=== PATIENT | female | born 1940 | race Caucasian/White ===

== ENCOUNTER 2019-07-17 14:36 | Inpatient (IN) | payer MEDICARE ==
[~2019-07-17] VITALS: Ht 162.6 cm; Wt 92.1 kg
[~2019-07-17 14:36] MED LIST: BENA40TA59 PO; CEPH-507 PO; ONDA4TAB8 SL; PIOG1TAB10
[2019-07-17] MEDS ORDERED: SIMV40TA25 PO (14:52)
[2019-07-17] MEDS ORDERED: GLIM4TAB3 PO (14:52)
[2019-07-17] MEDS ORDERED: PIOG30TA71 PO (14:52)
--- NOTE | 2019-07-17 15:11 | ED Lower Extremity ---
General Chief Complaint: Lower Extremity Stated Complaint: FALL/L LEG INJ Nursing Triage Note: pt reports she fell approx 30 min prior to arrival. she slipped et fell back onto her buttocks. reports unable to bear weight on left leg. Nursing Sepsis Screen: No Definite Risk History of Present Illness Date Seen by Provider: Jul 17, 2019 Time Seen by Provider: 14:50 Initial Comments 79-year-old female reports slipping and falling landing on her butt ocks at home [employer]. She was kicking snow off the running boards, when she fell. She had no loss of consciousness, no head injury. She is complaining of left hip and mid thigh pain, on the left. No other symptoms. Her son had to help her get up and she could not bear weight on her left leg. No history of injuries or surgeries to her either lower extremity. She denies any back pain, chest pain, headache or nausea. Type 2 DM, doesn't check her glucose daily but a few days ago it was 109. Onset: just prior to arrival Pain/Injury Location: left hip, left leg (upper) Method of Injury: fell Modifying Factors: Improves With Rest Allergies and Home Medications Allergies Coded Allergies: No Known Drug Allergies (Verified , 10/17/09) Home Medications Glimepiride 4 Mg Tablet, 4 MG PO DAILY, (Reported) Ondansetron 4 Mg Tab.rapdis, 4 MG SL Q4H Prescribed by: SAL HOLGUIN on 04/10/15 0818 Pioglitazone HCl 30 Mg Tablet, 30 MG PO DAILY, (Reported) Simvastatin 40 Mg Tablet, 40 MG PO HS, (Reported) Patient Home Medication List Home Medication List Reviewed: Yes Review of Systems Constitutional: no symptoms reported, see HPI Musculoskeletal: see HPI, joint pain (left hip and upper thigh) All Other Systems Reviewed Negative Unless Noted: Yes Past Gofrzfl-Qcgvhl-Pxhssm Hx Past Med/Social Hx: Reviewed Nursing Past Med/Soc Hx Patient Social History Alcohol Use: Denies Use Recreational Drug Use: No Smoking Status: Never a Smoker Recent Foreign Travel: No Contact w/Someone Who Travel: No Recent Infectious Disease Expo: No Recent Hopitalizations: Yes (1972) Immunizations Up To Date Date of Pneumonia Vaccine: Jun 06, 2008 Date of Influenza Vaccine: Apr 05, 2019 Past Medical History Surgeries: Yes Appendectomy Respiratory: No Cardiac: Yes Hypertension Neurological: No Reproductive Disorders: No Gastrointestinal: No Musculoskeletal: No Endocrine: Yes (DIABETES) Diabetes, Non-Insulin dep Psychosocial: No Blood Disorders: Yes ([place] 1967, chemotherapy) Family Medical History No Pertinent Family Hx Physical Exam Vital Signs Vital Signs - First Documented 07/17/19 14:43 Temp 36.9 Pulse 105 Resp 16 B/P (MAP) 181/75 (110) Pulse Ox 95 O2 Delivery Room Air Capillary Refill : Less Than 3 Seconds Height, Weight, BMI Height: 5'5.00" Weight: 180lbs. 11.2oz. 81.578190fy; 32.00 BMI Method: General Appearance: WD/WN, no apparent distress HEENT: PERRL/EOMI, normal ENT inspection, TMs normal, pharynx normal Neck: non-tender, full range of motion, supple, normal inspection Cardiovascular: normal peripheral pulses, regular rate, rhythm Respiratory: chest non-tender, lungs clear, normal breath sounds Gastrointestinal: normal bowel sounds, non tender, soft Back: normal inspection, no vertebral tenderness Hips: right hip non-tender; bilateral hip normal inspection; right hip normal range of motion; left hip limited range of motion (secondary to pain), left hip soft tissue tenderness, left hip other (Tenderness ant left thigh. No ecchymosis or crepitus noted. NO groin pain, mild lateral hip pain. ) Knees: bilateral knee non-tender, bilateral knee normal inspection, bilateral knee normal range of motion (Pain in left hip with left knee ROM) Ankles: bilateral ankle non-tender, bilateral ankle normal inspection, bilateral ankle normal range of motion Neurologic/Tendon: normal sensation, normal motor functions, normal tendon functions Neurologic/Psychiatric: no motor/sensory deficits, alert, normal mood/affect, oriented x 3 Skin: normal color, warm/dry Patient keeping left leg in external rotation but no obvious shortening noted. Progress/Results/Core Measures Results/Orders Lab Results My Orders Orders - ELS GUTIERREZ Femur, Left, 2 Views (07/17/19 15:00) Pelvis With Left Hip 2-3 Views (07/17/19 15:00) Chest 1 View, Ap/Pa Only (07/17/19 15:26) Cbc With Automated Diff (07/17/19 15:27) Comprehensive Metabolic Panel (07/17/19 15:27) Protime With Inr (07/17/19 15:27) Partial Thromboplastin Time (07/17/19 15:27) Ua Culture If Indicated (07/17/19 15:27) Catheter(Urinary) Care .0300, 1500 (07/17/19 15:27) Vital Signs/I&O 07/17/19 14:43 Temp 36.9 Pulse 105 Resp 16 B/P (MAP) 181/75 (110) Pulse Ox 95 O2 Delivery Room Air Blood Pressure Mean: 110 Progress Progress Note : Time: 14:50 Progress Note Patient seen and evaluated. We'll obtain x-rays of the pelvis, left hip and left femur. Patient denies need for pain medication at this time. 1515 X-ray shows an left impacted femoral neck fracture. Will obtain chest x- ray, labs and EKG. [address] Pacheco, agreed to admit patient with plan for surgery 07/18/19. Dr Snow will consult for medical management. 1540 Patient and family notified of x-ray results and plan of care. Bourgeois inserted. Fentanyl 25 g IV for pain. 1600 Patient reports improvement in pain, CBC WNL, CMP pending. Initial ECG Impression Date: Jul 17, 2019 Initial ECG Impression Time: 15:50 Initial ECG Rate: 102 Initial ECG Rhythm: S.Tach Initial ECG Intervals: Normal Initial ECG Intervals CA 216, QRSD 90, QT 356, QTc 464. [place] P 50, QRS -19, T 76. Initial ECG Impression: Normal Initial ECG Comparisson: Unchanged Diagnostic Imaging Diagonstic Imaging: Xray Plain Films/CT/US/NM/MRI: chest Comments NAME: AGUSTÍN PEREZ Ryan [facility] REC#: [id number] PT STATUS: REG ER : 1940 PHYSICIAN: LES GUTIERREZ ADMIT DATE: 07/17/19/ER Signed Date of Exam:07/17/19 CHEST 1 VIEW, AP/PA ONLY EXAMINATION: Chest radiograph, portable AP view. DATE: 07/17/2019 3:34 PM. INDICATION: 79-year-old female, fall. Left hip fracture. COMPARISON: October 20, 2009. FINDINGS: There are linear opacities radiating upwards from the right eboni which may reflect scarring. This appears similar to comparison exam. Stable overall appearance of the cardiomediastinal silhouette. There is no identified pneumothorax. There is no large pleural effusion. There is no new focal airspace consolidation. IMPRESSION: 1. Linear opacities radiating upwards from the right hilum are likely reflecting scarring. 2. No identified acute cardiopulmonary abnormality. Dictated by: Dictated on workstation # [id number] Dict: 07/17/19 1543 Trans: 07/17/191555 PJ [id number] Interpreted by: DELFINA ALVARES MD Electronically signed by: DELFINA ALVARES MD 07/17/191555 Reviewed: Reviewed by Ms Diagonstic Imaging: Xray Comments [facility] [id number] PT STATUS: REG ER : 1940 PHYSICIAN: LES GUTIERREZ ADMIT DATE: 07/17/19/ER Signed Date of Exam:07/17/19 FEMUR, LEFT, 2 VIEWS EXAMINATION: Left femur, 2 views, 4 images. COMPARISON: None. HISTORY: 79-year-old female, left leg pain after fall. FINDINGS: There is a displaced left femoral neck fracture with override of fracture fragments measuring approximately 2.5 cm. There is cortical irregularity of the left inferior pubic ramus at its lateral aspect which does raise the question of a very mildly displaced fracture. There is tricompartmental osteoarthritis of the left knee without left knee joint effusion. There is no additional identified left femur fracture. IMPRESSION: 1. Displaced fracture of the left femoral neck. 2. Cortical irregularity along the lateral margin of the left inferior pubic ramus which could relate to a mildly displaced fracture. This may be better assessed with dedicated CT left hip without contrast. Dictated by: Dictated on workstation # [id number] Dict: 07/17/19 1540 Trans: 07/17/191555 E [id number] Interpreted by: DELFINA ALVARES MD Electronically signed by: DELFINA ALVARES MD 07/17/191555 Reviewed: Reviewed by Ms Diagonstic Imaging: Xray Comments NAME: AGUSTÍN PEREZ [facility] REC#: [id number] PT STATUS: REG ER : 1940 PHYSICIAN: LES GUTIERREZ ADMIT DATE: 07/17/19/ER Signed Date of Exam:07/17/19 PELVIS WITH LEFT HIP 2-3 VIEWS EXAMINATION: Pelvis, single view. Left hip, 2 additional views. COMPARISON: None. HISTORY: 79-year-old female, fall. Left hip pain. FINDINGS: There is a displaced left femoral neck fracture. There is override of fracture fragments measuring approximately 2.5 cm. The bones appear demineralized. The right hip is not dislocated. The left femoral head is not dislocated. The pubic symphysis and sacroiliac joints are normally aligned. IMPRESSION: Displaced fracture of the left femoral neck with override of fracture fragments, measuring 2.5 cm. Dictated by: Dictated on workstation # [id number] Dict: 07/17/19 1540 Trans: 07/17/19 1556 [facility] [id number] Interpreted by: DELFINA ALVARES MD Electronically signed by: DELFINA ALVARES MD 07/17/19 1556 Reviewed: Reviewed by Me, Reviewed/Discussed (with ) Departure Impression Primary Impression: Fracture of femoral neck, left Qualified Codes: S72.002A - Fracture of unspecified part of neck of left femur, initial encounter for closed fracture Additional Impressions: Fall Qualified Codes: W19.XXXA - Unspecified fall, initial encounter Diabetes type 2, controlled Qualified Codes: E11.9 - Type 2 diabetes mellitus without complications Disposition: ADMITTED INPATIENT Condition: Stable Admissions Decision to Admit Reason: Admit from ER (General) Decision to Admit/Date: Jul 17, 2019 Time/Decision to Admit Time: 15:30 Departure-Patient Inst. Referrals: DANIELLA SOLANO MD (PCP/Family) Primary Care Physician Copy Copies To 1: DANIELLA SOLANO MD, AMY ARNP Jul 17, 2019 15:10
[2019-07-17 15:38] LABS: BILIRUBIN,URINE NEGATIVE (NEGATIVE); CLARITY,URINE CLEAR; GLUCOSE, URINE (UA) NEGATIVE (NEGATIVE); KETONES,URINE TRACE (NEGATIVE); LEUKOCYTE ESTERASE ,URINE NEGATIVE (NEGATIVE); NITRITE,URINE NEGATIVE (NEGATIVE); PH,URINE 5.5 (5-9); PROTEIN,URINE NEGATIVE (NEGATIVE)
--- NOTE | 2019-07-17 15:42 | Diagnostic Imaging Report ---
EXAMINATION: Pelvis, single view. Left hip, 2 additional views. COMPARISON: None. HISTORY: 79-year-old female, fall. Left hip pain. FINDINGS: There is a displaced left femoral neck fracture. There is override of fracture fragments measuring approximately 2.5 cm. The bones appear demineralized. The right hip is not dislocated. The left femoral head is not dislocated. The pubic symphysis and sacroiliac joints are normally aligned. IMPRESSION: Displaced fracture of the left femoral neck with override of fracture fragments, measuring 2.5 cm. Dictated by: Dictated on workstation # [id number]
--- NOTE | 2019-07-17 15:43 | Diagnostic Imaging Report ---
EXAMINATION: Left femur, 2 views, 4 images. COMPARISON: None. HISTORY: 79-year-old female, left leg pain after fall. FINDINGS: There is a displaced left femoral neck fracture with override of fracture fragments measuring approximately 2.5 cm. There is cortical irregularity of the left inferior pubic ramus at its lateral aspect which does raise the question of a very mildly displaced fracture. There is tricompartmental osteoarthritis of the left knee without left knee joint effusion. There is no additional identified left femur fracture. IMPRESSION: 1. Displaced fracture of the left femoral neck. 2. Cortical irregularity along the lateral margin of the left inferior pubic ramus which could relate to a mildly displaced fracture. This may be better assessed with dedicated CT left hip without contrast. Dictated by: Dictated on workstation # [id number]
[2019-07-17 15:49] LABS: RBC,URINE 0-2 /HPF
--- NOTE | 2019-07-17 15:49 | Diagnostic Imaging Report ---
EXAMINATION: Chest radiograph, portable AP view. DATE: 07/17/2019 3:34 PM. INDICATION: 79-year-old female, fall. Left hip fracture. COMPARISON: October 20, 2009. FINDINGS: There are linear opacities radiating upwards from the right eboni which may reflect scarring. This appears similar to comparison exam. Stable overall appearance of the cardiomediastinal silhouette. There is no identified pneumothorax. There is no large pleural effusion. There is no new focal airspace consolidation. IMPRESSION: 1. Linear opacities radiating upwards from the right hilum are likely reflecting scarring. 2. No identified acute cardiopulmonary abnormality. Dictated by: Dictated on workstation # [id number]
[2019-07-17 15:50] LABS: BACTERIA,URINE TRACE /HPF; COLOR,URINE YELLOW
[2019-07-17 15:54] LABS: BASOPHILS % (AUTO) 0 % (0-10); EOSINOPHILS # (AUTO) 0.2 10^3/uL (0.0-0.3); EOSINOPHILS % (AUTO) 2 % (0-10); HEMATOCRIT 41 % (35-52); HEMOGLOBIN 13.5 G/DL (11.5-16.0); LYMPHOCYTES # (AUTO) 1.5 X 10^3 (1.0-4.0); LYMPHOCYTES % (AUTO) 19 % (12-44); MEAN CORPUSCULAR HEMOGLOBIN 31 PG (25-34); MEAN CORPUSCULAR HGB CONC 33 G/DL (32-36); MEAN CORPUSCULAR VOLUME 93 FL (80-99); MEAN PLATELET VOLUME 11.8 FL (7.4-10.4); MONOCYTES # (AUTO) 0.7 X 10^3 (0.0-1.0); MONOCYTES % (AUTO) 8 % (0-12); NEUTROPHILS # (AUTO) 5.5 X 10^3 (1.8-7.8); NEUTROPHILS % (AUTO) 70 % (42-75); PLATELET COUNT 187 10^3/uL (130-400); RED CELL DISTRIBUTION WIDTH 14.9 % (10.0-14.5); WHITE BLOOD COUNT 7.8 10^3/uL (4.3-11.0)
[2019-07-17] MEDS ORDERED: fentaNYL INJECTION 100 MCG/2 ML AMP IVP ONE (16:00)
[2019-07-17 16:12] LABS: ALBUMIN 4.3 GM/DL (3.2-4.5); BILIRUBIN,TOTAL 0.4 MG/DL (0.1-1.0); CALCIUM 9.4 MG/DL (8.5-10.1); CREATININE SERUM 1.34 MG/DL (0.60-1.30); POTASSIUM 4.5 MMOL/L (3.6-5.0)
--- NOTE | 2019-07-17 16:30 | NUR ---
AGUSTÍN PEREZ admitted to room 432-1, with an admitting diagnosis of LEFT HIP FX , on 07/17/19 from ED via CART, accompanied by STAFF AND FAMILY. AGUSTÍN PEREZ introduced to surroundings, call light, bed controls, phone, TV, temperature control, lights, meal times, smoking policy, visitor policy, side rail policy, bathrooms and showers. Patient Rights given to patient in the handbook. AGUSTÍN PEREZ verbalizes understanding that [facility] is not responsible for the loss or damage to any personal effects or valuables that are kept in the patients posession during their hospitalization. The following Patient Care Plans were discussed with the PT AND FAMILY: Discharge Planning, PAIN, FALLS, AND FRACTURE. AGUSTÍN PEREZ verbalizes understanding of Interdisciplinary Patient Education. Patient and/or family were informed about the Rapid Response Team and its purpose.
[2019-07-17 16:33] VITALS: BP 148/82
[2019-07-17] MEDS ORDERED: fentaNYL INJECTION 100 MCG/2 ML AMP IV PRN (16:45)
[2019-07-17] MEDS ORDERED: ONDANSETRON 4 MG/2 ML (SDV) Z0FRAN IV PRN (16:45)
[2019-07-17] MEDS: NS IV 1000 ML 1,000 ML IV SCH (17:22)
[2019-07-17] MEDS ORDERED: oxyCODONE/APAP 5/325MG (PERCOCET 5) TABLET PO PRN (17:45)
[2019-07-17] MEDS: morphine INJ 4 MG/ML 1 ML (VIAL/SYRINGE) IVP PRN ×2 (17:46→21:52)
[2019-07-17 18:17] VITALS: BP 148/82
[2019-07-17] MEDS ORDERED: RT-ALBUTEROL SULF 2.5 MG/3 ML PRE-MIX VIAL INH PRN (18:45)
--- NOTE | 2019-07-17 19:11 | HISTORY AND PHYSICAL ---
DATE OF SERVICE: 07/17/2019 REASON FOR ADMISSION: Displaced left femoral neck fracture. HISTORY OF PRESENT ILLNESS: The patient is a 79-year-old female who fell on her buttocks when she slipped on a running board on an automobile. She was found to have a displaced left femoral neck fracture for which she was admitted. She denies antecedent pain. She reports no prior history of hip problems. Radiographs revealed displaced left femoral neck fracture. REVIEW OF SYSTEMS: No chest pain, no shortness of breath, no dysuria. ALLERGIES: No known drug allergies. MEDICATIONS: 1. Glimepiride. 2. Ondansetron. 3. Pioglitazone. 4. Simvastatin. PAST MEDICAL HISTORY: Significant for hypercholesterolemia, type 2 diabetes mellitus. SOCIAL HISTORY: The patient denies alcohol and tobacco use. PAST SURGICAL HISTORY: Appendectomy. PHYSICAL EXAMINATION: GENERAL: The patient is well developed, well-nourished, in no acute distress. HEENT: Normocephalic, atraumatic. Pupils are equal, round, reactive to light. Oropharynx is clear. NECK: Supple, no lymphadenopathy. LUNGS: Clear to auscultation bilaterally. HEART: Regular rate and rhythm. ABDOMEN: Soft, nontender, nondistended. EXTREMITIES: The left lower extremity demonstrates symmetric pulses. She has intact dorsiflexion and plantarflexion of the toes. Sensation is intact distally. Her hip is slightly shortened and slightly externally rotated. IMPRESSION: Displaced left femoral neck fracture. PLAN: Left hip bipolar replacement (hemiarthroplasty). We discussed risks, benefits, options, ramifications recovery with the patient and her family. They understand and wish to proceed. Job ID: [id number] DocumentID: [id number] Dictated Date: 07/17/2019 17:58:58 Rn Team Leader Date: 07/17/2019 19:11:05 Dictated By: DEANDRE WALLACE MD
[2019-07-17 20:00] VITALS: BP 130/67
[2019-07-17 23:30] VITALS: BP 132/76
[2019-07-18] VITALS (12 sets, daily range): BP systolic 94–158; BP diastolic 45–80
[2019-07-18] MEDS: morphine INJ 4 MG/ML 1 ML (VIAL/SYRINGE) IVP PRN ×6 (00:45→20:33)
[2019-07-18 05:31] LABS: BASOPHILS % (AUTO) 0 % (0-10); EOSINOPHILS % (AUTO) 0 % (0-10); HEMATOCRIT 37 % (35-52); LYMPHOCYTES # (AUTO) 1.5 X 10^3 (1.0-4.0); LYMPHOCYTES % (AUTO) 12 % (12-44); MEAN CORPUSCULAR HEMOGLOBIN 30 PG (25-34); MEAN CORPUSCULAR HGB CONC 32 G/DL (32-36); MEAN CORPUSCULAR VOLUME 93 FL (80-99); MEAN PLATELET VOLUME 11.4 FL (7.4-10.4); MONOCYTES # (AUTO) 1.1 X 10^3 (0.0-1.0); MONOCYTES % (AUTO) 9 % (0-12); NEUTROPHILS # (AUTO) 9.9 X 10^3 (1.8-7.8); NEUTROPHILS % (AUTO) 79 % (42-75); PLATELET COUNT 190 10^3/uL (130-400); RED CELL DISTRIBUTION WIDTH 14.8 % (10.0-14.5); WHITE BLOOD COUNT 12.6 10^3/uL (4.3-11.0)
[2019-07-18 05:54] LABS: ALANINE AMINOTRANSFERASE 14 U/L (0-55); ALBUMIN 3.5 GM/DL (3.2-4.5); ALKALINE PHOSPHATASE 55 U/L (40-136); BILIRUBIN,TOTAL 0.7 MG/DL (0.1-1.0); BUN/CREATININE RATIO 23; CALCIUM 8.8 MG/DL (8.5-10.1); CARBON DIOXIDE 21 MMOL/L (21-32); CHLORIDE 106 MMOL/L (98-107); GFR ESTIMATED > 60; GLUCOSE 117 MG/DL (70-105); POTASSIUM 4.4 MMOL/L (3.6-5.0); SODIUM 137 MMOL/L (135-145); TOTAL PROTEIN 6.8 GM/DL (6.4-8.2)
[2019-07-18] MEDS: NS IV 1000 ML 1,000 ML IV SCH (06:27)
[2019-07-18] MEDS ORDERED: fentaNYL INJECTION 100 MCG/2 ML AMP ONE (10:15)
[2019-07-18] MEDS ORDERED: ONDANSETRON 4 MG/2 ML (SDV) Z0FRAN ONE (10:15)
[2019-07-18] MEDS ORDERED: proPOfol 200 MG/20 ML (DIPRIVAN) VIAL IV ONE (10:18)
[2019-07-18] MEDS ORDERED: SEVOFLURANE (ULTANE) 15 ML INHAL SOLN ONE ×3 (10:18→11:50)
[2019-07-18] MEDS ORDERED: LIDOCAINE PF 2% 5 ML (XYLOCAINE) VIAL ONE (10:18)
--- NOTE | 2019-07-18 10:35 | NUR ---
PATIENT TO SURGERY AT THIS TIME. THIS RN WILL ASSUME CARE OF THIS PATIENT WHEN SHE RETURNS TO 4TH MEDICAL FLOOR FROM SURGERY.
[2019-07-18] MEDS ORDERED: ceFAZolin INJECTION 2,000 MG ONE (10:48)
[2019-07-18] MEDS: LACTATED RINGERS 1,000 ML IV PRN ×2 (10:56→12:18)
--- NOTE | 2019-07-18 10:57 | Progress Note-Pre Operative ---
Pre-Operative Progress Note H&P Reviewed The H&P was reviewed, patient examined and no changes noted. Date Seen by Provider: Jul 18, 2019 Time Seen by Provider: 10:56 Date H&P Reviewed: Jul 18, 2019 Time H&P Reviewed: 10:56 Pre-Operative Diagnosis: left neck of femur fracture DEANDRE WALLACE MD Jul 18, 2019 10:57
--- NOTE | 2019-07-18 10:58 | Progress Note-Post Operative ---
Post-Operative Progess Note Surgeon (s)/Waste Specialist (s) Surgeon DEANDRE WALLACE MD Waste Specialist: Navneet Hammond Pre-Operative Diagnosis left neck of femur fracture Post-Operative Diagnosis displaced left neck of femur fracture Procedure & Operative Findings Date of Procedure 07/18/19 Procedure Performed/Findings left hip bipolar replacement Anesthesia Type GETA Estimated Blood Loss Estimated blood loss (mL): 150 ml Specimens/Packing Specimens Removed femoral head Packing: none DEANDRE WALLACE MD Jul 18, 2019 10:58
[2019-07-18] MEDS ORDERED: ACETAMINOPHEN 325 MG TABLET PO PRN (11:00)
[2019-07-18] MEDS ORDERED: morphine INJ 4 MG/ML 1 ML (VIAL/SYRINGE) IVP PRN (11:00)
[2019-07-18] MEDS ORDERED: ONDANSETRON 4 MG/2 ML (SDV) Z0FRAN IVP PRN ×2 (11:00→12:45)
[2019-07-18] MEDS ORDERED: ceFAZolin 2 GM/50 ML NS 50 ML IV ONE (11:25)
[2019-07-18] MEDS ORDERED: GLYCOPYRROLATE 0.2 MG/ML (ROBINUL) 2 ML VIAL ONE (11:49)
[2019-07-18] MEDS ORDERED: NEOSTIGMINE 3 MG/3 ML VIAL ONE (11:49)
[2019-07-18] MEDS ORDERED: ROCURONIUM 10 MG/ML 5 ML SYRINGE IV ONE (11:59)
[2019-07-18] MEDS ORDERED: BENA40TA5 PO (12:00)
--- NOTE | 2019-07-18 12:04 | NUR ---
MED REC REVIEWED PRIOR TO MED REC TECH AVAILABILITY. PATIENT IS OUT OF THE ROOM AT THIS TIME BUT THE EXT MED HX SHOWS THE SAME MEDICATIONS THAT WERE ENTERED ON HER MED REC. I REVIEWED THEM AT THIS TIME. I VERIFIED WITH [facility] THE DIRECTIONS ON THE SIMVASTATIN ARE ONE AT HS DESPITE THE QUANTITY AND DAYS SUPPLY SHOWN ON THE EXT MED HX.
[2019-07-18] MEDS ORDERED: morphine INJ 10 MG/ML 1ML (SYR OR VIAL) IVP ONE (12:45)
[2019-07-18] MEDS ORDERED: MEPERIDINE (DEMEROL) INJ 50 MG/ML IVP ONE (12:45)
--- NOTE | 2019-07-18 13:07 | Diagnostic Imaging Report ---
INDICATION: Left hip surgery. TIME OF EXAM: 12:53 p.m. FINDINGS: Single view of the left hip was obtained. There are postop changes of left hip arthroplasty. Prosthetic elements are in good position. No fracture or loosening is seen. Overlying skin alyson are noted. IMPRESSION: Satisfactory postop appearance to the left hip. Dictated by: Dictated on workstation # [id number]
--- NOTE | 2019-07-18 13:30 | NUR ---
Report received at this time from BIENVENIDO Hand.
--- NOTE | 2019-07-18 14:11 | Consultation - Hospitalist ---
HPI History of Present Illness: HPI/Chief Complaint Pt is a 79yoCF with a PMH of HTN, HLD, and NIDDMII who presented to the ER after a fall. She states she was outside kicking snow off her car and fell and developed hip pain. She was brought in via POV because she could not bear weight on it. XR was done and revealed a displaced left femoral neck fracture. She was admitted to orthopedic surgery for repair. She went to the OR this morning and I am seeing her postoperatively. She does complain of pain in her hip. She states she does not check her blood sugars regularly but they're in the low 100s when she does. She reports compliance with her medications. She has no other complaints. Source: patient Date Seen 07/18/19 Attending Physician Vincent Pacheco MD PCP López Jorge MD Referring Physician Dr Pacheco Date of Admission Jul 17, 2019 at 15:30 Home Medications & Allergies Home Medications Reviewed patient Home Medication Reconciliation performed by pharmacy medication reconciliations failure analysis technician and/or nursing. Patients Allergies have been reviewed. Allergies Allergies Coded Allergies No Known Drug Allergies (Verified07/17/19) Past Fhmafzd-Vvemel-Tmpygs Hx Past Med/Social Hx: Reviewed Nursing Past Med/Soc Hx Patient Social History Alcohol Use: Denies Use Recreational Drug Use: No Smoking Status: Never a Smoker Physical Abuse Screen: No Sexual Abuse: No Recent Foreign Travel: No Contact w/other who traveled: No Recent Hopitalizations: No Recent Infectious Disease Expo: No Immunizations Up To Date Date of Pneumonia Vaccine: Jun 06, 2008 Date of Influenza Vaccine: Apr 05, 2019 Seasonal Allergies Seasonal Allergies: No Past Medical History Surgeries: Appendectomy Currently Using CPAP: No Cardiac: Hypertension Reproductive: No Endocrine: Diabetes, Non-Insulin dep Cancer: Lymphoma Did You Recieve Any Treatments: Yes What Type of Treatment Did You: Chemotherapy Cancer: 1967 History of Blood Disorders: Yes ([place] 1966, chemotherapy) Family History Reviewed Nursing Family Hx No Pertinent Family Hx Review of Systems Constitutional: no symptoms reported EENTM: no symptoms reported Respiratory: no symptoms reported Cardiovascular: no symptoms reported Gastrointestinal: no symptoms reported Genitourinary: no symptoms reported Musculoskeletal: no symptoms reported Skin: no symptoms reported Psychiatric/Neurological: No Symptoms Reported Physical Exam Physical Exam Vital Signs Vital Signs - First Documented 07/17/19 14:43 Temp 36.9 Pulse 105 Resp 16 B/P (MAP) 181/75 (110) Pulse Ox 95 O2 Delivery Room Air Capillary Refill : Less Than 3 SecondsLess Than 3 Seconds Height, Weight, BMI Height: 5'5.00" Weight: 180lbs. 11.2oz. 81.516948cc; 34.83 BMI Method: General Appearance: No Apparent Distress, WD/WN Respiratory: Lungs Clear, No Respiratory Distress Cardiovascular: Regular Rate, Rhythm, No Murmur Gastrointestinal: Normal Bowel Sounds, Non Tender, Soft Extremity: No Pedal Edema, Other (mabel hose) Neurologic/Psychiatric: Alert, Oriented x3 Results Results/Procedures Labs Laboratory Tests 07/17/19 15:35 07/18/19 04:37 Patient resulted labs reviewed. Imaging: Reviewed Imaging Report Assessment/Plan Assessment and Plan Assess & Plan/Chief Complaint Left femoral neck fracture POD #0 Management per primary pain control PT/OT IRU consult NIDDMII Resume home meds HTN Well controlled currently Continue home meds Diagnosis/Problems Diagnosis/Problems (1) Essential (primary) hypertension (2) Diabetes type 2, controlled Status: Acute Qualifiers: Diabetes mellitus corporate human resources manager insulin use: without corporate human resources manager use Diabetes me llitus complication status: without complication Qualified Codes: E11.9 - Type 2 diabetes mellitus without complications (3) Fall Status: Acute Qualifiers: Encounter type: initial encounter Qualified Codes: W19.XXXA - Unspecified fall, initial encounter (4) Left displaced femoral neck fracture Clinical Quality Measures DVT/VTE Risk/Contraindication: Risk Factor Score Per Nursin RFS Level Per Nursing on Admit: 4+=Very High VLAD WHITLOCK MD Jul 18, 2019 14:11
--- NOTE | 2019-07-18 15:37 | Physical Therapy Evaluation ---
PT Evaluation-General Medical Diagnosis Admission Date Jul 17, 2019 at 15:30 Medical Diagnosis: left hip fracture Onset Date: Jul 17, 2019 Therapy Diagnosis Therapy Diagnosis: debility/weakness Height/Weight Height (Feet): 5 Height (Inches): 5.00 Weight (Pounds): 180 Weight (Ounces): 11.2 Precautions Precautions/Isolations: Fall Prevention, Standard Precautions Weight Bear Status Right Lower Extremity: Right Full Weight Bearing Left Lower Extremity: Left Weight Bearing/Tolerated Referral Physician: Tara Reason for Referral: Evaluation/Treatment Medical History Pertinent Medical History: DM, HTN Current History slipped and fell kicking ice off of truck Reviewed History: Yes Social History Home: Single Level Current Living Status: Alone Entry Into Home: Stairs With Railing PT Steps Into Home: 4 Prior Prior Level of Function SCALE: Activities may be completed with or without assistive devices. 8-Mjlwomnpzo-hkaebss completes the activity by him/herself with no assistance from a helper. 5-Set-up or Clean-up Assistance-helper sets up or cleans up; patient completes activity. [place] assists only prior to or following the activity. 4-Supervision or Touching Assistance-helper provides verbal cues and/or touching/steadying and/or contact guard assistance as patient completes activity. Assistance may be provided throughout the activity or intermittently. 3-Partial/Moderate Assistance-helper does LESS THAN HALF the effort. [place] lifts, holds or supports trunk or limbs, but provides less than half the effort. 2-Substantial/Maximal Assistance-helper does MORE THAN HALF the effort. [place] lifts or holds trunk or limbs and provides more than half the effort. 8-Hddvpvtqt-hqrbly does ALL the effort. Patient does none of the effort to complete the activity. Or, the assistance of 2 or more helpers is required for the patient to complete the activity. If activity was not attempted, code reason: 7-Patient Refused. 9-Not Applicable-not attempted and the patient did not perform the activity before the current illness, exacerbation or injury. 10-Not Attempted due to Environmental Limitations-(lack of equipment, weather restraints, etc.). 88-Not Attempted due to Medical Conditions or Safety Concerns. Bed Mobility: 6 Transfers (B,C,W/C): 6 Gait: 6 Stairs: 6 Indoor Mobility (Ambulation): Independent Stairs: Independent Prior Devices Use: None PT Evaluation-Current Subjective Patient agrees to PT. Family present. Pain Numeric Pain Scale: 5-Moderate Pain Location: Left Location Body Site: Hip Pain Description: Acute Objective Patient Orientation: Normal For Age Attachments: Bourgeois Catheter ROM/Strength ROM Lower Extremities left hip precautions/right LE WFL Strength Lower Extremities right LE 3+/5 grossly/ left LE 3/5 grossly Integumentary/Posture Integumentary refer to nursing notes Bladder Incontinence: Bourgeois Cath Posture WFL Neuromuscular (Tone, Coordination, Reflexes) grossly intact Sensory Vision: Functional Hearing: Functional Sensation Right Lower Extremit: Intact Sensation Left Lower Extremity: Intact Transfers Roll Left to Right (QC): 2 Sit to Lying (QC): 2 Lying to Sitting/Side of Bed(Q: 2 Sit to Stand (QC): 3 Gait Does the Patient Walk?: Yes Mode of Locomotion: Walk Anticipated Mode of Locomotion: Walk Distance: 5' Gait Assistive Device: FWW Comments/Gait Description side stepping to left without difficulty Balance Sitting Static: Normal Sitting Dynamic: Normal Standing Static: Normal Standing Dynamic: Normal Assessment/Needs 79 y.o. female, will benefit from skilled PT to address functional strength and mobility to improve current LOF to safely return to home at maximum LOF. Rehab Potential: Good PT Skilled Nursing Goals Skilled Nursing Goals PT Fish And Wildlife Technician Goals Time Frame: Aug 06, 2019 Roll Left & Right (QC): 6 Sit to Lying (QC): 6 Lying-Sitting on Side/Bed(QC): 6 Sit to Stand (QC): 6 Chair/Xzq-lj-Ziddr Xfer(QC): 6 Toilet Transfer (QC): 6 Car Transfer (QC): 6 Does the Patient Walk: Yes Walk 10 feet (QC): 6 Walk 50ft with 2 Turns (QC): 6 Walk 150 ft (QC): 6 Walking 10ft on Uneven Surface: 6 1 Step (curb) (QC): 6 4 Steps (QC): 6 PT Plan Treatment/Plan Treatment Plan: Continue Plan of Care Treatment Plan: Bed Mobility, Education, Functional Activity Tye, Functional Strength, Gait, Safety, Therapeutic Exercise, Transfers Treatment Duration: Aug 06, 2019 Frequency: 11 times per week Estimated Hrs Per Day: .5 hour per day Patient and/or Family Agrees t: Yes Time/GCodes Time In: 1505 Time Out: 1530 Total Billed Treatment Time: 25 Total Billed Treatment 1 visit EVModC 25 min ELIANE MUNOZ PT Jul 18, 2019 15:37
[2019-07-18] MEDS: ceFAZolin INJECTION 1,000 MG in WATER (STERILE) FOR INJECTION 10 ML IV SCH (18:04)
[2019-07-18] MEDS: SIMvastatin 40 MG (ZOCOR) TAB PO SCH (20:33)
--- NOTE | 2019-07-18 20:53 | OPERATIVE REPORT ---
DATE OF SERVICE: 07/18/2019 PREOPERATIVE DIAGNOSIS: Left displaced femoral neck fracture. POSTOPERATIVE DIAGNOSIS: Left displaced femoral neck fracture. PROCEDURE: Left hip bipolar replacement. SURGEON: Vincent Wallace MD TECHNICIAN ANATOMIC PATHOLOGY: Navneet Hammond, who assisted throughout the procedure and closed the incision. ANESTHESIA: General endotracheal by Dr. Mora. ESTIMATED BLOOD LOSS: 150 mL. DRAINS: None. COMPLICATIONS: None. POSTOPERATIVE PLAN: Routine protocol with weightbearing as tolerated. MATERIALS: DePuy/Synthes pressfit 4 stem with a 47 liner and a 28/+5 head. The patient was transferred to recovery room awake and in stable condition. STATEMENT OF MEDICAL NECESSITY: The patient is a 79-year-old female, who fell yesterday afternoon and sustained a displaced left femoral neck fracture. In order to maintain her activities, the patient and her family elected to proceed with surgical intervention. DESCRIPTION OF PROCEDURE: After risks and benefits of procedure were discussed and questions were answered, informed consent was signed and placed on chart. The operative site was confirmed in the preoperative holding area initialed by the surgeon. The patient was then transferred to the operating room. After adequate level of general endotracheal anesthetic were obtained, a timeout was called, confirming the operative site. The patient was then carefully placed in the right lateral decubitus position, being careful to place an axillary roll and pad all bony prominences. The left hip and lower extremity were prepped and draped in the usual sterile fashion. A longitudinal incision was made and a lateral approach was utilized. The iliotibial band was incised in line with the incision. The abductor tendon was incised leaving a 2 cm cuff for later reattachment. A capsulotomy was performed and the femoral neck cut was made utilizing the guide. The femoral head was removed and sized to a size 47. The 47 trial was placed and fit well in the acetabulum. The acetabulum was irrigated with pulse lavage. No loose bodies were noted. The femur was then prepared with a box chisel followed by the T-handle reamer and the broaches. The femur sized to a size 4 and then trialed with an excellent reduction obtained and no impingement noted. The hip was stable in all planes. The trials were removed. The joint was further irrigated with pulse lavage. The 4 stem was placed in 15 degrees of anteversion. The head liner construct was then placed and the hip was reduced. The hip was stable in all planes with no impingement noted. Full range of motion was noted. The joint was further irrigated with pulse lavage. A total of 6 liters was used throughout the procedure. The abductor musculature and capsule were reapproximated with #5 Tev[place] in xczwju-dm-xvtai interrupted fashion with excellent repair obtained. Further irrigation was performed and the iliotibial band was closed in a running fashion with #1 Vicryl. Subcutaneous tissues were closed with 0 Vicryl followed by 2-0 Vicryl and staple was used on the skin. A soft dressing was applied. The patient was transferred to the recovery room awake and in stable condition. Job ID: [id number] DocumentID: [id number] Dictated Date: 07/18/2019 12:30:16 Material Preparation Worker Date: 07/18/2019 20:52:42 Dictated By: VINCENT WALLACE MD
[2019-07-18] MEDS: oxyCODONE/APAP 5/325MG (PERCOCET 5) TABLET PO PRN (23:40)
[2019-07-19] VITALS: BP 127/67
[2019-07-19] MEDS: NS IV 1000 ML 1,000 ML IV SCH (01:13)
[2019-07-19] MEDS: ceFAZolin INJECTION 1,000 MG in WATER (STERILE) FOR INJECTION 10 ML IV SCH (03:21)
[2019-07-19] MEDS: oxyCODONE/APAP 5/325MG (PERCOCET 5) TABLET PO PRN ×3 (03:29→19:54)
[2019-07-19 04:00] VITALS: BP 130/80
[2019-07-19] MEDS: GLIMEPIRIDE 4 MG (AMARYL) TAB PO SCH (06:52)
--- NOTE | 2019-07-19 06:57 | Anesthesia-General Post-Op ---
General Patient Condition Mental Status/LOC: Same as Preop Cardiovascular: Satisfactory Nausea/Vomiting: Absent Respiratory: Satisfactory Pain: Controlled Complications: Absent Post Op Complications Complications None Follow Up Care/Instructions Patient Instructions None needed. Anesthesia/Patient Condition Patient Condition Patient is doing well, no complaints, stable vital signs, no apparent adverse anesthesia problems. No complications reported per nursing. PIOTR BLISS CRNA Jul 19, 2019 06:57
--- NOTE | 2019-07-19 07:04 | D/C HH Face to Face Order ---
D/C Face to Face Orders Reconcile Patient Problems Problems Reviewed?: Yes Instructions for Patient Via Ivonne Exosite, Patient Instructions/FollowUp: two weeks Physician to follow Patient: two weeks Discharge Diet for Home: ADA Diet Patient Data-Allergies,Ht & Wt Patient Allergies: Coded Allergies: No Known Drug Allergies (Verified , 07/17/19) Height (Feet): 5 Height (Inches): 5.00 Weight (Pounds): 180 Weight (Ounces): 11.2 Home Health Need/Face to Face Date of Face to Face: Jul 19, 2019 Clinical Findings: Instability, Muscle weakness, Pain with ambulation, Unsteady gait I have seen Pt kqkw-dx-swus: Yes Discharged To: Home Diagnosis/Conditions: left hip prateek artroplasty Patient is Homebound due to: Bryon fall risk due to instabilty, Muscle weakness, Pain w/ambulation Homebound Status Due to the above stated illness, injury or surgical procedure (medical condition or diagnosis) and associated clinical findings, the patient is homebound because of his/her inability to leave home except with aid of a supportive device and/or person AND leaving the home requires a considerable and taxing effort or is medically contraindicated. Pt req the following assistanc: Walker Home Health Nursing Orders Home Health Services Order: Physical Therapy-Evaluate & Treat Home Health Infusion Therapy Line Start Date: Jul 17, 2019 Therapy Orders Therapy Orders: Physical Therapy, PT to assess for OT Certify Stmt I certify that this patient is under my care and that I, a nurse practitioner or a physician; a regulatory assistant working with me, had a face to face encounter that - meets the physician face to face encounter requirements with this patient as dated. DEANDRE WALLACE MD Jul 19, 2019 07:04
--- NOTE | 2019-07-19 07:07 | Progress Note ---
Standard Progress Note Progress Notes/Assess & Plan Date Seen by a Provider: Jul 19, 2019 Time Seen by a Provider: 07:05 Progress/Assessment & Plan no complaints radiographs--HW well positioned without fracture Vital Signs Date Time Temp Pulse Resp B/P (MAP) Pulse Ox O2 Delivery O2 Flow Rate FiO2 07/19/19 04:00 37.7 98 18 130/80 (97) 95 Room Air 07/19/19 00:00 37.4 89 18 127/67 (87) 93 Room Air 07/18/19 20:40 Room Air 07/18/19 20:00 38.1 91 18 110/56 (74) 94 Room Air 07/18/19 19:11 Room Air 07/18/19 16:00 37.2 83 18 124/66 (85) 98 Room Air 07/18/19 15:10 36.8 96 94 21 07/18/19 13:30 36.8 18 145/70 (95) 94 Room Air 07/18/19 13:30 Room Air 07/18/19 13:20 18 142/72 (95) 94 Room Air 07/18/19 13:15 Room Air 07/18/19 13:10 18 158/70 (99) 99 OxyMask 3 07/18/19 13:03 OxyMask 6 07/18/19 13:00 18 137/80 (99) 100 OxyMask 6 07/18/19 12:55 OxyMask 6 07/18/19 12:50 18 137/73 (94) 100 OxyMask 6 07/18/19 12:40 18 146/74 (98) 100 OxyMask 6 07/18/19 12:40 OxyMask 6 07/18/19 12:28 OxyMask 6 07/18/19 12:28 36.5 16 94/45 (61) 99 OxyMask 6 07/18/19 08:00 95 Room Air 07/18/19 07:43 38.2 96 18 122/68 (86) 95 Room Air I & O 07/19/19 07:00 Intake Total 4620 ml Output Total 1715 ml Balance 2905 ml LLE--intact DF and PF of toes and ankle. sym pulses with brisk cap refill. sensation intact to light touch throughout. dressing intact s/p L hip bipolar PT/OT DEANDRE WALLACE MD Jul 19, 2019 07:07
[2019-07-19 07:15] LABS: HEMOGLOBIN 9.9 G/DL (11.5-16.0)
[2019-07-19 08:18] VITALS: BP 123/59
[2019-07-19] MEDS: PIOGLITAZONE 30MG (ACTOS) TAB PO SCH (08:37)
[2019-07-19] MEDS: ENOXAPARIN 40 MG/0.4 ML (LOVENOX) SYR SC SCH (08:37)
[2019-07-19] MEDS: lisINopril 40 MG (PRINIVIL) TABLET PO SCH (08:37)
[2019-07-19] MEDS ORDERED: NON-FORMULARY MEDICATION 1 EA EA (Benazepril HCl 40 MG) PO SCH (09:00)
--- NOTE | 2019-07-19 09:30 | NUR ---
IRF Evaluation Order received to evaluate patient for the ARU. Chart review complete and findings discussed with Dr. Gonzalez - patient accepted. Met with patient and daughter to discuss details specific to rehabilitation program. Patient appeared drowsy as she kept closing her eyes. Daughter states she feels a rehabilitation stay, prior to returning home, is ideal. Daughter states she will further discuss this with her mother and siblings. Dr. Snow notified. Anticipated admission, 07/20/19. Thank you for this referral.
--- NOTE | 2019-07-19 10:06 | Progress Note - Hospitalist ---
Subjective HPI/CC On Admission Date Seen by Provider: Jul 19, 2019 Time Seen by Provider: 10:00 Pt is a 79yoCF with a PMH of HTN, HLD, and NIDDMII who presented to the ER after a fall. She states she was outside kicking snow off her car and fell and developed hip pain. She was brought in via POV because she could not bear weight on it. XR was done and revealed a displaced left femoral neck fracture. She was admitted to orthopedic surgery for repair. She went to the OR this morning and I am seeing her postoperatively. She does complain of pain in her hip. She states she does not check her blood sugars regularly but they're in the low 100s when she does. She reports compliance with her medications. She has no other complaints. Subjective/Events-last exam Pt reports feeling better today. Some nausea but was ablet o keep some borth down this AM. Discussed plan for rehab and she is agreeable. Objective Exam Vital Signs Vital Signs Date Time Temp Pulse Resp B/P (MAP) Pulse Ox O2 Delivery O2 Flow Rate FiO2 07/19/19 08:18 37.1 94 20 123/59 (80) 95 Room Air 07/18/19 15:10 21 07/18/19 13:10 3 Capillary Refill : Less Than 3 SecondsLess Than 3 Seconds General Appearance: No Apparent Distress, WD/WN Respiratory: Lungs Clear, No Respiratory Distress Cardiovascular: Regular Rate, Rhythm, No Murmur Neurologic/Psychiatric: Alert, Oriented x3 Results/Procedures Lab Laboratory Tests 07/19/19 06:45 Patient resulted labs reviewed. Imaging: Reviewed Imaging Report Assessment/Plan Assessment and Plan Assess & Plan/Chief Complaint Left femoral neck fracture POD #1 Management per primary pain control PT/OT IRU consult- plan for DC there tomorrow NIDDMII Continue home meds HTN Well controlled currently Continue home meds Diagnosis/Problems Diagnosis/Problems (1) Essential (primary) hypertension (2) Diabetes type 2, controlled Status: Acute Qualifiers: Diabetes mellitus group home insulin use: without group home use Diabetes mellitus complication status: without complication Qualified Codes: E11.9 - Type 2 diabetes mellitus without complications (3) Fall Status: Acute Qualifiers: Encounter type: initial encounter Qualified Codes: W19.XXXA - Unspecified fall, initial encounter (4) Left displaced femoral neck fracture Clinical Quality Measures DVT/VTE Risk/Contraindication: Risk Factor Score Per Nursin RFS Level Per Nursing on Admit: 4+=Very High VLAD WHITLOCK MD Jul 19, 2019 10:06
--- NOTE | 2019-07-19 10:16 | Physical Therapy Daily Note ---
PT Daily Note-Current Subjective Patient agreeable to therapy. Pain Numeric Pain Scale: 5-Moderate Pain Location: Left Location Body Site: Hip Pain Description: Acute Appearance Patient in recliner with bedside table and call light within reach. Mental Status Patient Orientation: Normal For Age Attachments: IV Transfers SCALE: Activities may be completed with or without assistive devices. 4-Jgclpjrffh-elkfkje completes the activity by him/herself with no assistance from a helper. 5-Set-up or Clean-up Assistance-helper sets up or cleans up; patient completes activity. [place] assists only prior to or following the activity. 4-Supervision or Touching Assistance-helper provides verbal cues and/or touching/steadying and/or contact guard assistance as patient completes activity. Assistance may be provided throughout the activity or intermittently. 3-Partial/Moderate Assistance-helper does LESS THAN HALF the effort. [place] lifts, holds or supports trunk or limbs, but provides less than half the effort. 2-Substantial/Maximal Assistance-helper does MORE THAN HALF the effort. [place] lifts or holds trunk or limbs and provides more than half the effort. 9-Etaogyabv-jgpbyt does ALL the effort. Patient does none of the effort to complete the activity. Or, the assistance of 2 or more helpers is required for the patient to complete the activity. If activity was not attempted, code reason: 7-Patient Refused. 9-Not Applicable-not attempted and the patient did not perform the activity before the current illness, exacerbation or injury. 10-Not Attempted due to Environmental Limitations-(lack of equipment, weather restraints, etc.). 88-Not Attempted due to Medical Conditions or Safety Concerns. Roll Left & Right (QC): 5 Lying to Sitting/Side of Bed(Q: 5 Sit to Stand (QC): 4 Chair/Uyl-fv-Ofyzq Xfer(QC): 4 Weight Bearing Right Lower Extremity: Right Full Weight Bearing Left Lower Extremity: Left Weight Bearing/Tolerated Gait Training Does the Patient Walk?: Yes Distance: 40' Walk 10 feet (QC): 4 Walk 50 ft with 2 Turns(QC): 4 Gait Assistive Device: FWW antalgic, functional gait sequence Wheelchair Training Does the Pt Use a Wheelchair?: No Exercises Supine Ex: Ankle pumps, Heel Slides Supine Reps: 10 Assessment Patient ambulated well at a slow pace. PT to increase activity as tolerated by patient. PT Burn Out Tender Lace Goals Burn Out Tender Lace Goals PT Custodial Goals Time Frame: Aug 06, 2019 Roll Left & Right (QC): 6 Sit to Lying (QC): 6 Lying-Sitting on Side/Bed(QC): 6 Sit to Stand (QC): 6 Chair/Plg-pz-Yuzdx Xfer(QC): 6 Toilet Transfer (QC): 6 Car Transfer (QC): 6 Does the Patient Walk: Yes Walk 10 feet (QC): 6 Walk 50ft with 2 Turns (QC): 6 Walk 150 ft (QC): 6 Walking 10ft on Uneven Surface: 6 1 Step (curb) (QC): 6 4 Steps (QC): 6 PT Plan Problem List Problem List: Activity Tolerance, Functional Strength, Safety, Balance, Gait, Transfer, Bed Mobility, ROM Treatment/Plan Treatment Plan: Continue Plan of Care Treatment Plan: Bed Mobility, Education, Functional Activity Tye, Functional Strength, Gait, Safety, Therapeutic Exercise, Transfers Treatment Duration: Aug 06, 2019 Frequency: 11 times per week Estimated Hrs Per Day: .5 hour per day Patient and/or Family Agrees t: Yes Safety Risks/Education Patient Education: Gait Training, Transfer Techniques Teaching Recipient: Patient, Family Teaching Methods: Discussion Response to Teaching: Reinforcement Needed Time/GCodes Time In: 858 Time Out: 913 Total Billed Treatment Time: 15 Total Billed Treatment 1 visit GT (15 minutes) ELIANE MUNOZ PT Jul 19, 2019 10:16
[2019-07-19 11:18] VITALS: BP 119/73
--- NOTE | 2019-07-19 13:55 | Physical Therapy Daily Note ---
PT Daily Note-Current Subjective Patient is agreeable to therapy. Patient reports no pain at this time. Appearance Patient in bed with abduction pillow in place, bedside table, and call light within reach. Mental Status Patient Orientation: Person, Place, Time, Situation Transfers SCALE: Activities may be completed with or without assistive devices. 2-Vurnwemdgl-qulmfmn completes the activity by him/herself with no assistance from a helper. 5-Set-up or Clean-up Assistance-helper sets up or cleans up; patient completes activity. [place] assists only prior to or following the activity. 4-Supervision or Touching Assistance-helper provides verbal cues and/or touching/steadying and/or contact guard assistance as patient completes activity. Assistance may be provided throughout the activity or intermittently. 3-Partial/Moderate Assistance-helper does LESS THAN HALF the effort. [place] lifts, holds or supports trunk or limbs, but provides less than half the effort. 2-Substantial/Maximal Assistance-helper does MORE THAN HALF the effort. [place] lifts or holds trunk or limbs and provides more than half the effort. 6-Ecmmfjgfl-ogfeqb does ALL the effort. Patient does none of the effort to complete the activity. Or, the assistance of 2 or more helpers is required for the patient to complete the activity. If activity was not attempted, code reason: 7-Patient Refused. 9-Not Applicable-not attempted and the patient did not perform the activity before the current illness, exacerbation or injury. 10-Not Attempted due to Environmental Limitations-(lack of equipment, weather restraints, etc.). 88-Not Attempted due to Medical Conditions or Safety Concerns. Roll Left & Right (QC): 6 Sit to Lying (QC): 5 Sit to Stand (QC): 4 Chair/Osj-le-Nuinj Xfer(QC): 4 Weight Bearing Right Lower Extremity: Right Full Weight Bearing Left Lower Extremity: Left Weight Bearing/Tolerated Gait Training Does the Patient Walk?: Yes Distance: 40' Walk 10 feet (QC): 4 Walk 50 ft with 2 Turns(QC): 4 Gait Persons Needed: 1 Gait Assistive Device: FWW Patient was stable during ambulation. Patient ceased ambulation due to fatigue. Wheelchair Training Does the Pt Use a Wheelchair?: No Exercises Seated Therapy Exercises: Ankle pumps, Long arc quads Seated Reps: 10 Assessment Patient ambulation is progressing but was only able to walk a limited distance due to fatigue. PT Intermediate Goals Careers Counsellor Goals PT Intermediate Goals Time Frame: Aug 06, 2019 Roll Left & Right (QC): 6 Sit to Lying (QC): 6 Lying-Sitting on Side/Bed(QC): 6 Sit to Stand (QC): 6 Chair/Ynw-hn-Xbzji Xfer(QC): 6 Toilet Transfer (QC): 6 Car Transfer (QC): 6 Does the Patient Walk: Yes Walk 10 feet (QC): 6 Walk 50ft with 2 Turns (QC): 6 Walk 150 ft (QC): 6 Walking 10ft on Uneven Surface: 6 1 Step (curb) (QC): 6 4 Steps (QC): 6 PT Plan Problem List Problem List: Activity Tolerance, Functional Strength, Safety, Balance, Gait, Transfer, Bed Mobility, ROM Treatment/Plan Treatment Plan: Continue Plan of Care Treatment Plan: Bed Mobility, Education, Functional Activity Tye, Functional Strength, Gait, Safety, Therapeutic Exercise, Transfers Treatment Duration: Aug 06, 2019 Frequency: 11 times per week Estimated Hrs Per Day: .5 hour per day Patient and/or Family Agrees t: Yes Safety Risks/Education Patient Education: Gait Training, Transfer Techniques Teaching Recipient: Patient Teaching Methods: Discussion Response to Teaching: Reinforcement Needed Time/GCodes Time In: 1246 Time Out: 1259 Total Billed Treatment Time: 13 Total Billed Treatment 1 visit GT (13 minutes) ELIANE MUNOZ PT Jul 19, 2019 13:55
[2019-07-19 15:56] VITALS: BP 107/56
--- NOTE | 2019-07-19 17:25 | NUR ---
Report received from Garry FARIA, will assume care of patient at this time.
[2019-07-19 19:22] VITALS: BP 106/63
[2019-07-19] MEDS: SIMvastatin 40 MG (ZOCOR) TAB PO SCH (19:54)
[2019-07-20 00:16] VITALS: BP 113/66
[2019-07-20 03:51] VITALS: BP 107/67
--- NOTE | 2019-07-20 04:17 | DISCHARGE SUMMARY ---
DATE OF SERVICE: DATE OF ADMISSION: 07/17/2019 DATE OF DISCHARGE: 07/20/2019 DIAGNOSES: 1. Displaced left femoral neck fracture. 2. Hypercholesterolemia. 3. Diabetes mellitus. PROCEDURE: Left hip endoprosthetic replacement. HISTORY: The patient is a 79-year-old female, who underwent a left hip hemiarthroplasty following a fall. She progressed well postoperatively. At time of discharge, her wound was clean, dry. She had no calf tenderness. Negative Homans sign. CONDITION AT DISCHARGE: Good. DISCHARGE DISPOSITION: Transfer to the inpatient rehabilitation facility for continued physical and occupational therapy. Job ID: [id number] DocumentID: [id number] Dictated Date: 07/19/2019 18:21:37 Extracorporeal Technician Date: 07/20/2019 04:16:18 Dictated By: DEANDRE WALLACE MD
[2019-07-20 04:44] LABS: HEMOGLOBIN 9.2 G/DL (11.5-16.0)
[2019-07-20] MEDS: GLIMEPIRIDE 4 MG (AMARYL) TAB PO SCH (06:03)
[2019-07-20] MEDS: oxyCODONE/APAP 5/325MG (PERCOCET 5) TABLET PO PRN (06:03)
[2019-07-20 08:00] VITALS: BP 112/47
[2019-07-20] MEDS: PIOGLITAZONE 30MG (ACTOS) TAB PO SCH (09:12)
[2019-07-20] MEDS: ENOXAPARIN 40 MG/0.4 ML (LOVENOX) SYR SC SCH (09:12)
[2019-07-20] MEDS: lisINopril 40 MG (PRINIVIL) TABLET PO SCH (09:12)
[2019-07-20 10:11] VITALS: BP 112/47
== END 2019-07-20 10:03 | DRG 470 ==
LOC: EDUNIT# 14:36 → ER 14:37 → 4TH 15:30
PROVIDERS: ADMIT Orthopaedic Surgery; ATTEND Orthopaedic Surgery
PROC: 0SRB01A Replacement of Left Hip Joint with Metal Synthetic Substitute, Uncemented, Open Approach (ICD-10-PCS; principal; 2019-07-18 10:57)
DX: S72.002A Fracture of unspecified part of neck of left femur, initial encounter for closed fracture (principal); E11.9 Type 2 diabetes mellitus without complications; Z79.84 Long term (current) use of oral hypoglycemic drugs; I10 Essential (primary) hypertension; E78.5 Hyperlipidemia, unspecified; E78.00 Pure hypercholesterolemia, unspecified; Z85.72 Personal history of non-Hodgkin lymphomas; Z90.49 Acquired absence of other specified parts of digestive tract; W00.0XXA Fall on same level due to ice and snow, initial encounter
CPT/HCPCS: 36415; 51702; 71045; 73501; 73552; 80053; 81000; 84484; 85014; 85018; 85025; 85610; 85730; 87081; 93005; 94664; 96374

== ENCOUNTER 2019-07-20 08:58 | Inpatient (IN) | payer MEDICARE ==
[~2019-07-20] VITALS: Ht 163 cm; Wt 91.6 kg
[~2019-07-20 08:58] MED LIST changes: +BENA40TA5 PO; +GLIM4TAB3 PO; +PIOG30TA71 PO; +SIMV40TA25 PO
[2019-07-20] MEDS ORDERED: ONDANSETRON 4 MG (ZOFRAN) ORAL DISSOLVE TAB PO PRN (09:45)
[2019-07-20] MEDS ORDERED: FLEET ENEMA ADULT 1 EA BTL PR PRN (09:45)
[2019-07-20] MEDS ORDERED: CALCIUM CARBONATE 500 MG (TUMS) TAB.CHEW PO PRN (09:45)
[2019-07-20] MEDS ORDERED: guaiFENesin/CODEINE (ROBITUSSIN AC) 10ML UDC PO PRN (09:45)
[2019-07-20] MEDS ORDERED: LACTULOSE SYRUP 10GM/15ML (ENULOSE) 30ML UDC PO PRN (09:45)
[2019-07-20] MEDS ORDERED: DOCUSATE SODIUM 100 MG (COLACE) CAP PO PRN (09:45)
[2019-07-20] MEDS ORDERED: MELATONIN 3 MG TABLET PO PRN (09:45)
[2019-07-20] MEDS ORDERED: LOPERAMIDE 2 MG (IMODIUM) TABLET PO PRN (09:45)
[2019-07-20] MEDS ORDERED: diphenhydrAMINE 25 MG TAB (BENADRYL) PO PRN (09:45)
[2019-07-20] MEDS ORDERED: BISACODYL 10 MG SUPP (DULCOLAX) PR PRN (09:45)
[2019-07-20] MEDS ORDERED: ALPRAZolam 0.25 MG (XANAX) TAB PO PRN (09:45)
--- NOTE | 2019-07-20 10:29 | NUR ---
REVIEWED MED REC IT WAS REPORTED UPON ADMISSION TO 4TH FLOOR. NO CHANGES WERE MADE WHEN THE PATIENT DISCHARGED TO REHAB.
--- NOTE | 2019-07-20 10:49 | Progress Note ---
[facility] 07/20/19 1049: Progress Note Hospital Course/HPI This is a pleasant 79 year old woman with PMH of Hodgkin Lymphoma, HTN, Non-insulin dependent Type 2 Diabetes, and hyperlipidemia that presented to ED on 07/17/2019. She was kicking snow off the back of the truck when she lost her balance and fell. She reports no loss of consciousness or head injury. The fall caused a displaced left femoral neck fracture that was repaired on 07/18/2019 without complication. Patient has fallen 2 other times within the last couple of months that has not resulted in any serious injury. Patient is currently a high fall risk due to gait instability. Patient has been able to walk about 20 feet with assistance and is transferring with assistance to recliner. Patients catheter was removed this morning and she states she has not tried to urinate on her own nor has she had a bowel movement since admission. Patient will be discharged to therapy to improve strength and gain education on fall prevention. At the time of visit son is at bedside and patient is sitting up in bed. Patient is a good historian. She sees her PCP Dr. Jorge every 6 months. She reports he has had no concerns about her health to date. Patient is up to date on her colonoscopies which have all been clear. Patient has never seen a human resources benefits coordinator. She currently denies any pain in her hip or anywhere in her body. Patient denies visual or hearing changes, headaches, difficulty swallowing or speaking, difficulty breathing, palpitations, chest pain, bowel changes or blood in stool, difficulty urinating, skin changes, muscle weakness, tingling, fevers, chills, nausea, vomiting, weight loss, night sweats or aches. Surgical and hospitalization history: Chemo course done for HL and pins in wrist after a fall (both about 40 years ago). Appendix removal after rupture 10 years ago. Social history: Patient denies smoking, drinking, excessive caffeine use, and recreational drug use. Patient has 3 children, all in good health. Was for about 55 years but spouse 2 years ago. 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 She stays as active as possible at home. She is from [place]. Family history: Mother of heart attack without previously known cardiac conditions at 75. Father of skin cancer, unknown type. Patient has 8 siblings. She and two other siblings are the only living ones. Other siblings have passed from heart conditions and dementia. Physical Exam General: Patient is a WD/WN pleasant and talkative 79 year old female. She is cooperative and friendly. She is alert with normal mood and affect. She is a good historian and motivated to improve her condition. HEENT: No LAD, Head free of injuries, EOM intact. Neck soft and supple. Chest/Heart: RRR, no murmurs or abnormal heart sounds. Radial Pulse 2/4. Non- Tender chest Lungs: CTAB, no accessory muscle use, no respiratory distress Abdomen: Soft, non-distended. Normal bowel sounds x4 Skin: Warm, Dry, normal color. Extremities: No edema. Toe structures, deformed b/l. MSK/Back: No pain or muscle weakness reported. No CVA tenderness. Assessment/Plan s/p left femoral neck fracture repair without complications - Pain control and rehab for strength and fall prevention education Non-Insulin dependent type 2 diabetes - Monitor glucose and continue home meds HTN - well controlled, continue home meds Possible arthritis in feet - Consult podiatry. Patient was asking about surgery to repair deformity Use IS DVT Prophylaxis Diabetes education Fam hx of heart disease Fam hx of dementia JACKIE KERN DO 07/20/19 1317: Supervisory-Addendum Brief Verification & Attestation Participated in pt care: history, MDM, physical Personally performed: exam, history, MDM, supervision of care Care discussed with: Medical Student Procedures: n/a Results interpretation: Verified all documentation Verification and Attestation of Medical Student E/M Service A medical student performed and documented this service in my presence. I reviewed and verified all information documented by the medical student and made modifications to such information, when appropriate. I personally performed the physical exam and medical decision making. Jackie Kern Jul 20, 2019,13:16 [facility] Jul 20, 2019 10:49 JACKIE KERN DO Jul 20, 2019 13:17
--- NOTE | 2019-07-20 11:03 | Physical Therapy Evaluation ---
PT Evaluation-General Medical Diagnosis Admission Date Jul 20, 2019 at 10:15 Medical Diagnosis: left MARITA Onset Date: Jul 18, 2019 Therapy Diagnosis Therapy Diagnosis: weakness, ROM defecit Height/Weight Height (Feet): 5 Height (Inches): 5.00 Weight (Pounds): 180 Weight (Ounces): 11.2 Weight Bear Status Left Lower Extremity: Left Weight Bearing/Tolerated Referral Physician: Jackie Gonzalez DO Reason for Referral: Evaluation/Treatment Medical History Pertinent Medical History: DM, HTN Reviewed History: Yes Social History Home: Single Level Current Living Status: Spouse Entry Into Home: Ramp Prior Prior Level of Function SCALE: Activities may be completed with or without assistive devices. 8-Fdvqvnhcvh-jczdryh completes the activity by him/herself with no assistance from a helper. 5-Set-up or Clean-up Assistance-helper sets up or cleans up; patient completes activity. [place] assists only prior to or following the activity. 4-Supervision or Touching Assistance-helper provides verbal cues and/or touching/steadying and/or contact guard assistance as patient completes activity. Assistance may be provided throughout the activity or intermittently. 3-Partial/Moderate Assistance-helper does LESS THAN HALF the effort. [place] lifts, holds or supports trunk or limbs, but provides less than half the effort. 2-Substantial/Maximal Assistance-helper does MORE THAN HALF the effort. [place] lifts or holds trunk or limbs and provides more than half the effort. 2-Erjfdffoe-jajjvj does ALL the effort. Patient does none of the effort to complete the activity. Or, the assistance of 2 or more helpers is required for the patient to complete the activity. If activity was not attempted, code reason: 7-Patient Refused. 9-Not Applicable-not attempted and the patient did not perform the activity before the current illness, exacerbation or injury. 10-Not Attempted due to Environmental Limitations-(lack of equipment, weather restraints, etc.). 88-Not Attempted due to Medical Conditions or Safety Concerns. Bed Mobility: 6 Transfers (B,C,W/C): 6 Gait: 6 Indoor Mobility (Ambulation): Independent PT Evaluation-Current Subjective Patient is agreeable to therapy. Patient reports no pain at his time. Patient states she is ready to get up and moving so that she can get home. Pain Numeric Pain Scale: 0-No Pain Pt/Family Goals to be independent at home Objective Patient Orientation: Person, Place, Time, Situation ROM/Strength ROM Lower Extremities WFL except for L hip. Strength Lower Extremities WFL Integumentary/Posture Bowel Incontinence: No Bladder Incontinence: No Sensory Vision: Functional Hearing: Functional Sensation Right Lower Extremit: Intact Sensation Left Lower Extremity: Intact Transfers Roll Left to Right (QC): 5 Sit to Lying (QC): 3 Lying to Sitting/Side of Bed(Q: 3 Sit to Stand (QC): 4 Chair/Urt-qh-Wpybm Xfer(QC): 4 Toilet Transfer: 4 Car Transfer (QC): 3 Patient performed toileting hygiene IND. Gait Does the Patient Walk?: Yes Mode of Locomotion: Walk Anticipated Mode of Locomotion: Walk Walk 10 feet (QC): 4 Walk 50 ft with 2 Turns(QC): 4 Walk 150 ft (QC): 4 Walking 10ft/uneven surface-QC: 4 Distance: 150' x 3 Gait Assistive Device: FWW Comments/Gait Description Patient is stable during ambulation, she requires frequent rest breaks. Patient appears to be bearing weight through her LLE. Wheelchair Training Does the Pt Use a Wheelchair?: No Wheel 50 ft with 2 turns (QC): 09 Wheel 150 ft (QC): 09 Stairs #of Steps: 1 1 Step (curb) (QC): 4 4 Steps (QC): 88 12 Steps (QC): 88 Walking Assistive Device: Walker Patient ascended/descended step CGA with verbal cues on sequence. Balance Sitting Static: Normal Sitting Dynamic: Normal Standing Static: Normal Standing Dynamic: Good Picking up an Object (QC): 88 Treatment Bilateral ankle pumps and LAQ x 10 reps. Assessment/Needs Patient is motivated to perform therapy because she is ready to go home. Patient is steady during ambulation but is weak and fatigues quickly. Due to this patient requires frequent rest breaks. Patient needs assistance in moving her LLE during bed mobility. Rehab Potential: Fair PT Short Term Goals Short Term Goals Time Frame: Jul 26, 2019 Roll Left & Right: 4 Sit to lyin Lying to sitting on side of be: 4 Sit to stand: 4 Chair/jrw-az-axubt transfer: 4 Toilet transfer: 4 Car transfer: 4 Walk 10 feet: 4 Walk 50 feet with two turns: 4 Walk 150 feet: 4 Walking 10ft on uneven surface: 4 1 step (curb): 4 PT Nursing Home Goals Nursing Home Goals PT Nursing Home Goals Time Frame: Aug 10, 2019 Roll Left & Right (QC): 6 Sit to Lying (QC): 6 Lying-Sitting on Side/Bed(QC): 6 Sit to Stand (QC): 6 Chair/Pss-yk-Icfqj Xfer(QC): 6 Toilet Transfer (QC): 6 Car Transfer (QC): 6 Does the Patient Walk: Yes Walk 10 feet (QC): 6 Walk 50ft with 2 Turns (QC): 6 Walk 150 ft (QC): 6 Walking 10ft on Uneven Surface: 6 1 Step (curb) (QC): 6 4 Steps (QC): 6 Does the Pt use WC or Scooter?: No PT Plan Problem List Problem List: Activity Tolerance, Functional Strength, Safety, Balance, Gait, Transfer, Bed Mobility, ROM Treatment/Plan Treatment Plan: Continue Plan of Care Treatment Plan: Bed Mobility, Education, Functional Activity Tye, Functional Strength, Gait, Safety, Therapeutic Exercise, Transfers Treatment Duration: Jul 29, 2019 Frequency: At least 5 of 7 days/Wk (IRF) Estimated Hrs Per Day: 1.5 hours per day Patient and/or Family Agrees t: Yes Safety Risks/Education Patient Education: Gait Training, Transfer Techniques, Steps, Reviewed Precautions, Correct Positioning, Safety Issues Teaching Recipient: Patient Teaching Methods: Demonstration, Discussion Response to Teaching: Reinforcement Needed Discharge Recommendations Plan Patient will perform bed mobility and transfer training, balance and endurance training, functional strengthening, stair training, gait training, and education, to improve functional mobility and independence at home. Therapy Discharge Recommendati: Home & Family Time/GCodes Time In: 1003 Time Out: 1103 Total Billed Treatment Time: 60 Total Billed Treatment 1 visit EVM 30' FA 15' GT 15' JACKSON MILLER PT Jul 20, 2019 11:03
[2019-07-20 11:17] VITALS: BP 118/53
--- NOTE | 2019-07-20 11:52 | PM&R Post Admission Assessment ---
PM&R HP Date of Visit: Jul 20, 2019 Time of Visit: 11:45 History of Present Illness CC: Left hip fracture in need of recovery HPI: This is a 79yoWF with a history of Non-Hodgkin's lymphoma, who presents to inpatient rehab in need of recovery, after sustaining a fall with left hip fracture. She has had multiple falls at her house recently and overall has had a decline status and poor reserve and ultimately had an uncomplicated left hip fracture repair. Labs remain stable and Pt was deemed ready for admittance to inpatient rehab to begin her intensive therapy. Past Aedpqea-Jsdybe-Mckjaf Hx Past Med/Social Hx: Reviewed Nursing Past Med/Soc Hx, Reviewed and Corrections made Patient Social History Marrital Status: single Employed/Student: retired Alcohol Use: Denies Use Recreational Drug Use: No Smoking Status: Never a Smoker Physical Abuse Screen: No Sexual Abuse: No Recent Foreign Travel: No Contact w/other who traveled: No Recent Hopitalizations: No Recent Infectious Disease Expo: No Immunizations Up To Date Date of Pneumonia Vaccine: Jun 06, 2008 Date of Influenza Vaccine: Apr 05, 2019 Seasonal Allergies Seasonal Allergies: No Past Medical History Surgeries: Appendectomy Currently Using CPAP: No Cardiac: Hypertension Reproductive: No Endocrine: Diabetes, Non-Insulin dep Cancer: Lymphoma Did You Recieve Any Treatments: Yes What Type of Treatment Did You: Chemotherapy History of Blood Disorders: Yes (Hodgins 1967, chemotherapy) Family History No Pertinent Family Hx Prior Level of Function Bed Mobility: 6 Transfers: 6 Gait: 6 Indoor Mobility (Ambulation): Independent Current Level of Fuctioning Roll Left to Right: 5 Sit to Lyin Lying to Sitting/Side of Bed: 3 Sit to Stand: 4 Chair/Kor-iz-Lcdew Xfer: 4 Car Transfer: 3 Does the Patient Walk: Yes Mode of Locomotion: Walk Anticipated Mode of Locomotion: Walk Walk 10 feet: 4 Walk 50 ft with 2 Turns: 4 Walk 150 ft: 4 Walking 10ft on uneven surface: 4 Gait Assistive Device: FWW Does the Pt Use a Wheelchair: No Wheel 50 ft with 2 turns: 09 Wheel 150 ft: 09 #of Steps: 1 1 Step (curb): 4 4 Steps: 88 Walking Assistive Device: Walker 12 Steps: 88 Picking up an Object: 88 PM&R Allergy/Meds/Data Review Allergies Coded Allergies: No Known Drug Allergies (Verified , 07/17/19) Home Medications Scheduled Benazepril HCl (Benazepril HCl), 40 MG PO DAILY, (Reported) Glimepiride (Glimepiride), 4 MG PO DAILY, (Reported) Pioglitazone HCl (Pioglitazone HCl), 30 MG PO DAILY, (Reported) Simvastatin (Simvastatin), 40 MG PO HS, (Reported) Discontinued Medications Cephalexin (Keflex), 500 MG PO TID Discontinued Reason: No Longer Taking Ondansetron (Zofran Odt), 4 MG SL Q4H Discontinued Reason: No Longer Taking Pioglitazone/Glimepiride (Duetact 30-2 Mg Tablet), (Reported) Discontinued Reason: No Longer Taking Current Medications Current Medications Reviewed Review of Systems Constitutional: see HPI, malaise, weakness EENTM: no symptoms reported Respiratory: no symptoms reported Cardiovascular: no symptoms reported Gastrointestinal: constipation Genitourinary: no symptoms reported Musculoskeletal: back pain, joint pain Skin: no symptoms reported Psychiatric/Neurological: Depressed All Other Systems Reviewed Negative Unless Noted: Yes Physical Exam Physical Exam Vital Signs Vital Signs - First Documented 07/20/19 11:17 Temp 36.8 Pulse 102 Resp 20 B/P (MAP) 118/53 Pulse Ox 95 O2 Delivery Room Air Capillary Refill : Height, Weight, BMI Height: 5'5.00" Weight: 180lbs. 11.2oz. [id number]; 34.66 BMI Method: General Appearance: No Apparent Distress, WD/WN, Chronically ill Eyes: Bilateral Eye Normal Inspection, Bilateral Eye PERRL HEENT: PERRL/EOMI, Normal ENT Inspection, Pharynx Normal Neck: Full Range of Motion, Normal Inspection, Non Tender, Supple, Carotid Bruit Respiratory: Chest Non Tender, Lungs Clear, Normal Breath Sounds, No Accessory Muscle Use, No Respiratory Distress Cardiovascular: Regular Rate, Rhythm, No Edema, No Gallop, No JVD, No Murmur, Normal Peripheral Pulses Gastrointestinal: Normal Bowel Sounds, No Organomegaly, No Pulsatile Mass, Non Tender, Soft Back: Normal Inspection, No CVA Tenderness, No Vertebral Tenderness Extremity: Normal Capillary Refill, Normal Inspection, Normal Range of Motion (except left leg), Non Tender, No Calf Tenderness, No Pedal Edema Neurologic/Psychiatric: Alert, Oriented x3, No Motor/Sensory Deficits, in class special education teacher II- XII Norm as Tested, Depressed Affect Skin: Normal Color, Warm/Dry Lymphatic: No Adenopathy PM&R Medical Assessment & Plan REHAB/MEDICAL ASSESSMENT AND PLAN: REHAB IMPAIRMENT GROUP: Left hip fracture ETIOLOGIC DIAGNOSIS: Left hip fracture The comorbidities that impact the patients function and/or functional outcome by: NHL hx, fall hx, DM, lives alone REHAB PLAN: The patient is being admitted to our comprehensive inpatient rehabilitation facility and can tolerate the intensity of service consisting of at least: 180 minutes of therapy a day, 5 out of 7 days a week Rehab treatment will consist of: PT and OT will focus on regaining enough function in order to return home The patient/family has a good understanding of our discharge process and will benefit from an interdisciplinary inpatient rehabilitation program. The patient has potential to make improvement and is in need of at least two of the following multidisciplinary therapies including but not limited to physical, occupational, speech, and prosthetics and orthotics. Additionally the patient will need services from respiratory, nutritional services, wound care, psychology, etc. (Customize this to each patient). Given the patients complex condition and risk of further medical complications, rehabilitation services cannot be safely or effectively provided at a lower level of care such as a chcf facility. BARRIERS TO DISCHARGE: Lives alone, severe pain left leg ESTIMATED LOS: 7 days DISPOSITION: Home RELEVANT CHANGES SINCE PREADMISSION SCREENING: I have compared the patients medical and functional status at the time of the preadmission screening and there are: no changes PROGNOSIS: Good REHABILITATION GOALS: 1. PT and OT will help regain function and manage pain while ambulating and increase ADL independence All the above goals were reviewed with the patient and he/she is in agreement. By signing this document, I acknowledge that I have personally performed a full physical examination on this patient within 24 hours of admission to this inpatient rehabilitation facility and have determined the patient to be able to tolerate the above course of treatment at an intensive level for a reasonable period of time. I will be completing a detailed individualized Plan of Care for this patient by day #4 of the patients stay based upon the Preadmission Screen, the Post-Admission Evaluation, and the therapy evaluations. Admission Dx/Comorbidities: (1) Left displaced femoral neck fracture ICD Codes: S72.002A - Fracture of unspecified part of neck of left femur, initial encounter for closed fracture (2) Non-Hodgkin lymphoma in remission ICD Codes: C85.90 - Non-Hodgkin lymphoma, unspecified, unspecified site (3) Constipation ICD Codes: K59.00 - Constipation, unspecified (4) Anemia due to blood loss, acute ICD Codes: D62 - Acute posthemorrhagic anemia (5) Essential (primary) hypertension ICD Codes: I10 - Essential (primary) hypertension (6) Diabetes type 2, controlled Status: Acute ICD Codes: E11.9 - Type 2 diabetes mellitus without complications (7) Fall Status: Acute ICD Codes: W19.XXXA - Unspecified fall, initial encounter Assessment and Plan Assess & Plan/Chief Complaint Assessment: Left hip fracture s/p repair uncomplicated NHL hx HTN DM Acute blood loss anemia Post op constipation Plan: BM regimen IRF protocol Pain control DANIELLA KERN DO Jul 20, 2019 11:52
--- NOTE | 2019-07-20 12:00 | Progress Note ---
Standard Progress Note Progress Notes/Assess & Plan Date Seen by a Provider: Jul 20, 2019 Time Seen by a Provider: 11:58 Progress/Assessment & Plan no complaints BLE without tendernss. Neg Denis's s/p L hip bipolar PT/OT DEANDRE WALLACE MD Jul 20, 2019 12:00
[2019-07-20] MEDS ORDERED: RT-ALBUTEROL SULF 2.5 MG/3 ML PRE-MIX VIAL INH PRN (12:15)
[2019-07-20] MEDS ORDERED: ACETAMINOPHEN 325 MG TABLET PO PRN (12:15)
[2019-07-20] MEDS: oxyCODONE/APAP 5/325MG (PERCOCET 5) TABLET PO PRN ×2 (12:35→20:55)
[2019-07-20] MEDS ORDERED: ENOXAPARIN 40 MG/0.4 ML (LOVENOX) SYR SC SCH (13:00)
--- NOTE | 2019-07-20 13:28 | Occupational Therapy Eval ---
OT Evaluation-General/PLF Medical Diagnosis Admission Date Jul 20, 2019 at 10:15 Medical Diagnosis: left MARITA Onset Date: Jul 18, 2019 Therapy Diagnosis Therapy Diagnosis: Decreased ADL skills Height/Weight Height (Feet): 5 Height (Inches): 5.00 Weight (Pounds): 180 Weight (Ounces): 11.2 Precautions Precautions/Isolations: Fall Prevention, Standard Precautions Weight Bear Status Weight Bearing Restriction: Weight Bearing/Tolerated Hip precautions Referral Physician: Jackie Gonzalez DO Referral Reason: Activity Tolerance, Self Care, Evaluation/Treatment, Strengthening/ROM Medical History Pertinent Medical History: DM, HTN Current History Pt. attempted to kick ice off of her son's running board. Fell and sustained hip fx. Underwent hemiarthroplasty. Reviewed History: Yes Social History Home: Single Level Current Living Status: Alone Entry Into Home: [place] Children live nearby. Spouse 2 years ago. ADL-Prior Level of Function SCALE: Activities may be completed with or without assistive devices. 2-Fmckgkasje-rfmhghd completes the activity by him/herself with no assistance from a helper. 5-Set-up or Clean-up Assistance-helper sets up or cleans up; patient completes activity. [place] assists only prior to or following the activity. 4-Supervision or Touching Assistance-helper provides verbal cues and/or touching/steadying and/or contact guard assistance as patient completes activity. Assistance may be provided throughout the activity or intermittently. 3-Partial/Moderate Assistance-helper does LESS THAN HALF the effort. [place] lifts, holds or supports trunk or limbs, but provides less than half the effort. 2-Substantial/Maximal Assistance-helper does MORE THAN HALF the effort. [place] lifts or holds trunk or limbs and provides more than half the effort. 5-Qbhqiqrht-rzwjbg does ALL the effort. Patient does none of the effort to complete the activity. Or, the assistance of 2 or more helpers is required for the patient to complete the activity. If activity was not attempted, code reason: 7-Patient Refused. 9-Not Applicable-not attempted and the patient did not perform the activity before the current illness, exacerbation or injury. 10-Not Attempted due to Environmental Limitations-(lack of equipment, weather restraints, etc.). 88-Not Attempted due to Medical Conditions or Safety Concerns. ADL PLOF Comments Pt. was independent with daily tasks. Does not use walker. Drives. Self Care: Independent Functional Cognition: Independent DME/Equipment: Shower DME/Equipment Comments Pt. has shower chair if needed. Does not have walker. Drive Self: Yes OT Current Status Subjective Pt. reports pain in left hip. Does not report pain number but nursing is aware and working on getting pt. pain medication. Appearance Pt. up in chair. Agrees to work with OT. Mental Status/Objective Patient Orientation: Person, Place, Time, Situation Current Hand Dominance: Right Upper Extremity ROM WFL Upper Extremity Strength WFL ADL-Treatment Eating (QC): 6 Oral Hygiene (QC): 88 Shower/Bathe Self (QC): 7 (Pt. declines bathing at this time. Agrees to do tomorrow.) Upper Body Dressing (QC): 3 (Min assist to pull shirt down in back.) Lower Body Dressing (QC): 2 (Hip precautions. Pt. is able to verbalize them.) On/Off Footwear (QC): 2 Toileting Hygiene (QC): 7 Other Treatments Pt. is aware of hip precautions, and is able to name them. Agrees to work with OT. Declines showering or sponge bathing, but agrees to work on dressing. OT brought in ADL equipment and pt. practiced doffing/donning slipper socks with adaptive equipment. Min assist overall. Spoke with pt. in depth regarding home set up, resources, etc..Pt. has three children that live near her, and are helpful. All needs met in room. Education OT Patient Education: Correct positioning, Modified ADL techniques, Progress toward Goal/Update tx plan, Purpose of tx/functional activities, Reviewed precautions, Rehab process, Transfer techniques, Use of adapted equipment Teaching Recipient: Patient Teaching Methods: Demonstration, Discussion Response to Teaching: Verbalize Understanding, Return Demonstration OT Short Term Goals Short Term Goals Time Frame: Jul 27, 2019 Eatin Oral hygiene: 5 Toileting hygiene: 5 Shower/bathe self: 4 Upper body dressin Lower body dressin Putting on/taking off footwear: 4 OT Correction Goals Correction Goals Time Frame: Aug 03, 2019 Eating (QC): 6 Oral Hygiene (QC): 6 Toileting Hygiene (QC): 6 Shower/Bathe Self (QC): 5 Upper Body Dressing (QC): 6 Lower Body Dressing (QC): 6 On/Off Footwear (QC): 6 Additional Goals: 1-Demonstrate ADL Tasks, 2-Verbalize Understanding, 3- ImproveStrength/Tye 1=Demonstrate adherence to instructed precautions during ADL tasks. 2=Patient will verbalize/demonstrate understanding of assistive devices/modifications for ADL. 3=Patient will improve strength/tolerance for activity to enable patient to perform ADL's. OT Education/Plan Problem List/Assessment Assessment: Decreased Activ Tolerance, Dependent Transfers, Impaired Funct Balance, Impaired I ADL's, Impaired Self-Care Skills Discharge Recommendations Plan/Recommendations: Continue POC Therapy Discharge Recommendati: Home & Family, Post Acute OT Equpiment Recommendations-D/C: Hip Kit Treatment Plan/Plan of Care Treatment,Training & Education: Yes Patient would benefit from OT for education, treatment and training to promote independence in ADL's, mobility, safety and/or upper extremity function for ADL's. Plan of Care: ADL Retraining, Functional Mobility, Group Exercise/Act as Ind, UE Funct Exercise/Act Treatment Duration: Aug 03, 2019 Frequency: At least 5 of 7 days/Wk (IRF) Estimated Hrs Per Day: 1.5 hours per day Agreement: Yes Rehab Potential: Good Time/GCodes Start Time: 11:05 Stop Time: 12:00 Total Time Billed (hr/min): 55 Billed Treatment Time 1, EVM x 10minutes, ADL x 45minutes MYAH ASTORGA OT Jul 20, 2019 13:28
--- NOTE | 2019-07-20 13:54 | Occupational Ther Daily Note ---
OT Current Status-Daily Note Subjective Pt alert, sitting in recliner. Pt's daughter in room. Pt agrees to therapy. Pt stated that she was tired. No c/o pain at this time. Mental Status/Objective Patient Orientation: Person, Place, Time, Situation ADL-Treatment Therapy Code Descriptions/Definitions Functional [place] Measure: 0=Not Assessed/NA 4=Minimal Assistance 1=Total Assistance 5=Supervision or Setup 2=Maximal Assistance 6=Modified [place] 3=Moderate Assistance 7=Complete IndependenceSCALE: Activities may be completed with or without assistive devices. 5-Ltrnejemqv-bkrnsfk completes the activity by him/herself with no assistance from a helper. 5-Set-up or Clean-up Assistance-helper sets up or cleans up; patient completes activity. [place] assists only prior to or following the activity. 4-Supervision or Touching Assistance-helper provides verbal cues and/or touching/steadying and/or contact guard assistance as patient completes activit y. Assistance may be provided throughout the activity or intermittently. 3-Partial/Moderate Assistance-helper does LESS THAN HALF the effort. [place] lifts, holds or supports trunk or limbs, but provides less than half the effort. 2-Substantial/Maximal Assistance-helper does MORE THAN HALF the effort. [place] lifts or holds trunk or limbs and provides more than half the effort. 9-Hqrffpkzz-djusau does ALL the effort. Patient does none of the effort to complete the activity. Or, the assistance of 2 or more helpers is required for the patient to complete the activity. If activity was not attempted, code reason: 7-Patient Refused. 9-Not Applicable-not attempted and the patient did not perform the activity before the current illness, exacerbation or injury. 10-Not Attempted due to Environmental Limitations-(lack of equipment, weather restraints, etc.). 88-Not Attempted due to Medical Conditions or Safety Concerns. Other Treatment Discussed with pt about home environment and bathroom safety. Pt and Pt's daughter states that she has walk-in shower, tub seat and hand held shower. Pt's daughter will get bathroom ready for pt during pt's stay and place equipment necessary. Discussed different options to acquire lower body dressing equipment that pt will need to adhere to hip precautions. Pt completed arm bike for 15 min at 15 rg resistance to increase strength and activity tolerance for daily functional tasks. After therapy, pt sitting in recliner with call light/phone in reach. All needs met in room. Daughter and nrsg in room. OT Usp Goals Usp Goals 1=Demonstrate adherence to instructed precautions during ADL tasks. 2=Patient will verbalize/demonstrate understanding of assistive dev ices/modifications for ADL. 3=Patient will improve strength/tolerance for activity to enable patient to perform ADL's. OT Education/Plan Problem List/Assessment Assessment: Decreased Activ Tolerance, Decreased UE Strength, Impaired Coordination, Impaired Funct Balance, Impaired Self-Care Skills Discharge Recommendations Plan/Recommendations: Continue POC Treatment Plan/Plan of Care Treatment,Training & Education: Yes Patient would benefit from OT for education, treatment and training to promote independence in ADL's, mobility, safety and/or upper extremity function for ADL's. Plan of Care: ADL Retraining, Functional Mobility, Group Exercise/Act as Ind, UE Funct Exercise/Act Treatment Duration: Aug 03, 2019 Frequency: At least 5 of 7 days/Wk (IRF) Estimated Hrs Per Day: 1.5 hours per day Rehab Potential: Good Time/GCodes Start Time: 13:10 Stop Time: 13:45 Total Time Billed (hr/min): 35 Billed Treatment Time 1 visit-EX 1 (15 min) FA 1 (20 min) REJI LEYVA Jul 20, 2019 13:54
--- NOTE | 2019-07-20 14:27 | Physical Therapy Daily Note ---
PT Daily Note-Current Subjective Pt. up in recliner, agrees to Rx, wants to go to bathroom and bed after walking. Pain Numeric Pain Scale: 4 Location: Left Location Body Site: Hip Pain Description: Ache Mental Status Patient Orientation: Normal For Age Transfers SCALE: Activities may be completed with or without assistive devices. 3-Dkkqdyiqqw-ypzzuxj completes the activity by him/herself with no assistance from a helper. 5-Set-up or Clean-up Assistance-helper sets up or cleans up; patient completes activity. [place] assists only prior to or following the activity. 4-Supervision or Touching Assistance-helper provides verbal cues and/or touching/steadying and/or contact guard assistance as patient completes activity. Assistance may be provided throughout the activity or intermittently. 3-Partial/Moderate Assistance-helper does LESS THAN HALF the effort. [place] lifts, holds or supports trunk or limbs, but provides less than half the effort. 2-Substantial/Maximal Assistance-helper does MORE THAN HALF the effort. [place] lifts or holds trunk or limbs and provides more than half the effort. 3-Xykmeyvcu-lsbjuu does ALL the effort. Patient does none of the effort to complete the activity. Or, the assistance of 2 or more helpers is required for the patient to complete the activity. If activity was not attempted, code reason: 7-Patient Refused. 9-Not Applicable-not attempted and the patient did not perform the activity before the current illness, exacerbation or injury. 10-Not Attempted due to Environmental Limitations-(lack of equipment, weather restraints, etc.). 88-Not Attempted due to Medical Conditions or Safety Concerns. CGA sit to stand and mod assist for RLE in to bed Weight Bearing Left Lower Extremity: Left Weight Bearing/Tolerated Gait Training Does the Patient Walk?: Yes Gait Assistive Device: FWW 50ft, 20ft, slow, CGA Exercises Supine Ex: Ankle pumps, Quad Set, Heel Slides, Hip abd/add Supine Reps: 10 Seated Therapy Exercises: Ankle pumps, Sit to stand, Long arc quads Seated Reps: 10 Assessment Current Status: Good Progress PT Short Term Goals Short Term Goals Time Frame: Jul 26, 2019 Roll Left & Right: 4 Sit to lyin Lying to sitting on side of be: 4 Sit to stand: 4 Chair/bzu-ej-nldyv transfer: 4 Toilet transfer: 4 Car transfer: 4 Walk 10 feet: 4 Walk 50 feet with two turns: 4 Walk 150 feet: 4 Walking 10ft on uneven surface: 4 1 step (curb): 4 PT [facility] Goals Medical Director/Head Team Physician Goals PT [facility] Goals Time Frame: Aug 10, 2019 Roll Left & Right (QC): 6 Sit to Lying (QC): 6 Lying-Sitting on Side/Bed(QC): 6 Sit to Stand (QC): 6 Chair/Foy-sa-Dosvl Xfer(QC): 6 Toilet Transfer (QC): 6 Car Transfer (QC): 6 Does the Patient Walk: Yes Walk 10 feet (QC): 6 Walk 50ft with 2 Turns (QC): 6 Walk 150 ft (QC): 6 Walking 10ft on Uneven Surface: 6 1 Step (curb) (QC): 6 4 Steps (QC): 6 Does the Pt use WC or Scooter?: No PT Plan Treatment/Plan Treatment Plan: Continue Plan of Care Treatment Plan: Bed Mobility, Education, Functional Activity Tye, Functional Strength, Gait, Safety, Therapeutic Exercise, Transfers Treatment Duration: Jul 29, 2019 Frequency: At least 5 of 7 days/Wk (IRF) Estimated Hrs Per Day: 1.5 hours per day Patient and/or Family Agrees t: Yes Safety Risks/Education Patient Education: Gait Training, Transfer Techniques, Correct Positioning, Disease Process, Safety Issues Teaching Recipient: Patient Teaching Methods: Demonstration, Discussion Response to Teaching: Verbalize Understanding, Return Demonstration, Reinforcement Needed Time/GCodes Time In: 1400 Time Out: 1420 Total Billed Treatment Time: 20 Total Billed Treatment 1,FA20m MOY JASMINE SERVICE DESK MANAGER Jul 20, 2019 14:27
--- NOTE | 2019-07-20 14:43 | ST Cognitive Linguistic Eval ---
Speech Evaluation-General Medical Diagnosis left MARITA Onset Date: Jul 18, 2019 Therapy Diagnosis Therapy Diagnosis: Cognitive-Communication Referral Referring Physician: Dr. Gonzalez Medical History Pertinent Medical History: DM, HTN Reviewed History: Yes Social History Current Living Status: Alone (Strong family support who live in close proximity.) Speech PLF-Current Status Prior Level of Function Patient independently lived at home in [place] and in close proximity to family members. Subjective Patient was alert and cooperative for all evaluation tasks. Patient was sitting upright in her chair throughout the evaluation. Patients daughter was present for the evaluation. Language Eval: Auditory Comprehends Simple Yes/No Ques: Functional Indent/Objects [place]: Functional Ident/Pics in [place]: Functional Follows 1-Step Commands: Functional Follows Complex Directions: Mild Follows General Conversations: Functional Language Eval: Verbal Language Completes Spontaneous Greeting: Functional Produces Auto, Serial Info: Mild Imitates Simple Words/Phrases: Functional Word Finding: Mild Requests Basic Needs: Functional States Basic Personal Info: Functional Expresses Complex Ideas: Mild Objective Cognitive Domain Attention: WNL Memory: Mild Problem Solving: Mild Executive Functions: WNL Visuospatial Skills: Mild Composite Severity Rating: Mild Clock Drawing Severity Rating: Mild Objective Formal/Standardized Tests [facility] Mental Status (UMS) examination was administered. Results Patient was administered the SLUMS and scored 16/30 which is indicative of a moderate dementia level of cognition. Oral Motor/Speech Production Within functional limits. Impression Patient was admitted to the ARU s/p left hip surgery. Patient scored a 16/30 on the SLUMS which is indicative of a moderate level of cognitive function. Patient will received skilled ST services to address cognitive deficits in the areas of memory, problem solving, and safety awareness to effectively communicate her wants/needs. Speech Patient Assess Expression of Ideas/Wants: Expression (4) Understanding Verbal Content: Usually Understands (3) Brief Interview-Mental Status: Yes Repetition of Three Words: Three (3) Temporal Orientation: Year: Missed by 1 year (2) Temporal Orientation: Month: Accurate within 5 days(2) Temporal Orientation: Day: Correct (1) Recall : Wear to say "Sock": Yes, no cue required (2) Recall : Color: No, could not recall (0) Recall : Bed: No, could not recall (0) Memory/Recall Ability: Current season, That he or she is in a hsp/hsp unit Speech Short Term Goals Short Term Goals Short Term Goals 1. Patient will complete memory tasks with 90% or greater accuracy with minimal cues. 2. Patient will complete safety awareness tasks with 90% or greater accuracy with minimal cues. 3. Patient will complete problem-solving tasks with 90% or greater accuracy with minimal cues. Speech Press Hand Goals Jail Goals Patient will improve cognitive-communication necessary for safety and daily living tasks with minimal assist. Speech-Plan Patient/Family Goals Patient/Family Goals: Patient wishes to return home to prior level of mobility and independence. Treatment Plan Speech Therapy Treatment Plan: Continue Plan of Care Treatment Duration: Jul 20, 2019 Frequency: 4 times per week Estimated Hrs Per Day: .5 hour per day Rehab Potential: Good Barriers to Learning: Moderate cognitive deficits Pt/Family Agrees to Plan: Yes Safety Risks/Education Teaching Recipient: Patient, Family Teaching Methods: Demonstration, Discussion Response to Teaching: Verbalize Understanding Education Topics Provided: Patient was educated on the benefits of receiving skilled ST therapy while admitted to the ARU. Time Speech Therapy Time In: 13:45 Speech Therapy Time Out: 14:00 Total Billed Time: 15 Billed Treatment Time 1, SPSNDCOMP FARSHAD Carballo Jul 20, 2019 14:42
[2019-07-20] MEDS ORDERED: inSUlin ASPART (NovoLOG) 1 UNIT/0.01 ML (CHARGE PER UNIT) SC SCH (16:00)
[2019-07-20 18:37] VITALS: BP 115/67
[2019-07-20] MEDS: SENNA W/DOCUSATE (SENOKOT S) TABLET PO SCH (20:41)
[2019-07-20] MEDS: DOCUSATE SODIUM 100 MG (COLACE) CAP PO SCH (20:41)
[2019-07-20] MEDS: SIMvastatin 40 MG (ZOCOR) TAB PO SCH (20:41)
[2019-07-20] MEDS: POLYETHYLENE GLYCOL 17 GM (MIRALAX) PACK PO SCH (21:03)
[2019-07-21] MEDS: oxyCODONE/APAP 5/325MG (PERCOCET 5) TABLET PO PRN ×4 (03:41→22:17)
[2019-07-21 05:06] VITALS: BP 122/77
[2019-07-21 05:12] LABS: BASOPHILS % (AUTO) 0 % (0-10); EOSINOPHILS # (AUTO) 0.2 10^3/uL (0.0-0.3); EOSINOPHILS % (AUTO) 2 % (0-10); HEMATOCRIT 27 % (35-52); HEMOGLOBIN 8.8 G/DL (11.5-16.0); LYMPHOCYTES % (AUTO) 9 % (12-44); MEAN CORPUSCULAR HEMOGLOBIN 30 PG (25-34); MEAN CORPUSCULAR HGB CONC 33 G/DL (32-36); MEAN CORPUSCULAR VOLUME 93 FL (80-99); MEAN PLATELET VOLUME 11.5 FL (7.4-10.4); MONOCYTES # (AUTO) 1.3 X 10^3 (0.0-1.0); MONOCYTES % (AUTO) 12 % (0-12); NEUTROPHILS # (AUTO) 8.1 X 10^3 (1.8-7.8); NEUTROPHILS % (AUTO) 77 % (42-75); PLATELET COUNT 175 10^3/uL (130-400); RED CELL DISTRIBUTION WIDTH 14.6 % (10.0-14.5); WHITE BLOOD COUNT 10.5 10^3/uL (4.3-11.0)
--- NOTE | 2019-07-21 05:44 | Individualized Plan of Care ---
Individualized Plan of Care Rehab Nursing IPOC Order Admission Date Jul 20, 2019 at 10:15 Current Orders Orders Admission Order(Inpt,Obs,Sdc) (07/20/19 09:37) Vital Signs: Per Unit Policy ( 08,16,00 (07/20/19 09:37) Cecil Gutierrez 09,21 (07/20/19 09:37) Sequential Compression Device Q4H (07/20/19 09:37) Telemarketing Fundraiser-Inpt Rehab Con (07/20/19 09:37) Rehab Nursing Orders-Ipoc (07/20/19 09:37) Physical Therapy Rehab Orders (07/20/19 09:37) Occupational Therapy Rehab Ord (07/20/19 09:37) Speech Therapy Rehab Orders (07/20/19 09:37) Cbc With Automated Diff (07/21/19 06:00) Comprehensive Metabolic Panel (07/21/19 06:00) General/Regular (07/20/19 Lunch) Intake & Output 06,14,22 (07/20/19 09:37) Precautions (Aru) (07/20/19 09:37) Weekly Weight WEEK (07/20/19 09:37) Rehab-Intensity Of Therapy (07/20/19 09:37) Initiate Admission Nursing Pro .admission (07/20/19 09:37) Alprazolam Tablet (Xanax Tablet) (07/20/19 09:45) Calcium Carbonate Chew Tablet (Antacid C (07/20/19 09:45) Diphenhydramine Tablet (Benadryl Tablet) (07/20/19 09:45) Docusate Sodium Capsule (Colace Capsule) (07/20/19 21:00) Docusate Sodium Capsule (Colace Capsule) (07/20/19 09:45) Bisacodyl Suppository (Dulcolax Supposit (07/20/19 09:45) Lactulose Oral Solution (Enulose Oral So (07/20/19 09:45) Na Phos/Na Biphos Enema (Fleet Enema Roberto (07/20/19 09:45) Guaifenesin/Codeine Syrup (Robitussin Ac (07/20/19 09:45) Loperamide Tablet (Imodium Tablet) (07/20/19 09:45) Melatonin Tablet (Melatonin Tablet) (07/20/19 09:45) Polyethylene Glycol Powder Pkt (Miralax (07/20/19 21:00) Ondansetron Oral Dissolve Tab (Zofran (07/20/19 09:45) Senna S Tablet (Senokot S Tablet) (07/20/19 21:00) Initiate Admission Nursing Pro .admission (07/20/19 09:37) Enoxaparin Injection (Lovenox Injection) (07/21/19 08:00) Ambulate 08,12,20 (07/20/19 11:47) Dvt/Vte Risk - Notifiy Physici Q4H (07/20/19 11:47) Code/Resuscitation (07/20/19 12:06) Abduction Pillow: Apply (Order (07/20/19 12:06) Bedrest For (#Of Hours) (07/20/19 12:06) Catheter(Urinary) Discontinue (07/20/19 12:06) Dressing Order (Intervention) DAILY (07/20/19 12:06) Elevate Affected Extremity (07/20/19 12:06) Heel Protectors Bilateral (07/20/19 12:06) Ice: Apply To Affected Area (07/20/19 12:06) Incentive Spirometry (Nursing) Q2H (07/20/19 12:06) Initiate Admission Nursing Pro .admission (07/20/19 12:06) Notify Anesthesia (07/20/19 12:06) Vital Signs: Anesthesia Post P (07/20/19 12:06) Cho 60g/M 0snack (16-2000 John) (07/20/19 Dinner) Albuterol Pre-Mix Nebs (Rt) (Proventil (07/20/19 12:15) Enoxaparin Injection (Lovenox Injection) (07/20/19 13:00) Glimepiride Tablet (Amaryl Tablet) (07/21/19 07:00) Pioglitazone Tablet (Actos Tablet) (07/21/19 09:00) Simvastatin Tablet (Zocor Tablet) (07/20/19 21:00) Acetaminophen Tablet/Caplet (Tylenol T (07/20/19 12:15) Lisinopril Tablet (Zestril Tablet) (07/21/19 09:00) Oxycodone/Apap 5/325mg Tablet (Percocet (07/20/19 12:15) Mat Initiate Protocol (07/20/19 12:06) Svn Small Volume Nebulizer (07/20/19 12:06) Svn Small Volume Nebulizer (07/20/19 12:06) Insulin Aspart (Novolog) (Novolog (Charg (07/20/19 16:00) Iron Test (Fe) (07/20/19 12:06) Patient Visit (07/20/19 ) Pt Eval Moderate Complexity (07/20/19 ) Gait Training, Ea 15 Min (07/20/19 ) Functional Activities, Ea 15 (07/20/19 ) Patient Visit (07/20/19 ) Functional Activities, Ea 15 (07/20/19 ) Patient Visit (07/20/19 ) Speech Sound Lang Comp (07/20/19 ) Iron Sucrose Injection (Venofer Injectio (07/21/19 09:00) Patient Visit (07/21/19 ) Treat. Speech/Lang/Voice (07/21/19 ) Patient Visit (07/21/19 ) Gait Training, Ea 15 Min (07/21/19 ) Functional Activities, Ea 15 (07/21/19 ) Exercise Therap, Ea 15 Min (07/21/19 ) Rehab Nursing Orders: Ongoing Assess. of Cognitive Status, Ongoing Assess. of Function Status, Bladder Training, Bowel Management, Bowel Training, Disease Management & Educaiton, DVT Prophylaxis, Fall Prevention, Fluid/Electrolyte/Nutrition Mgmt, Infection Prevention, Medication Management & Education, Management of Risks & Complications, Management of Skin Intergrity, Nutrition Management, Pain Management, Patient/Family Support, Safety Management Intensity of Therapy to be met Patient to be seen: Min.3h per day/5 of 7d PT IPOC Problem List: Activity Tolerance, Functional Strength, Safety, Balance, Gait, Transfer, Bed Mobility, ROM Treatment Plan: Continue Plan of Care Bed Mobility, Education, Functional Activity Tye, Functional Strength, Gait, Safety, Therapeutic Exercise, Transfers Treatment Duration: Jul 29, 2019 Frequency: At least 5 of 7 days/Wk (IRF) Estimated Hrs Per Day: 1.5 hours per day OT IPOC Problems: Decreased Activ Tolerance, Dependent Transfers, Impaired Funct Balance, Impaired I ADL's, Impaired Self-Care Skills OT Treatment, Training and Edu: Yes Plan of Care: ADL Retraining, Functional Mobility, Group Exercise/Act as Ind, UE Funct Exercise/Act Treatment Duration: Aug 03, 2019 Frequency: At least 5 of 7 days/Wk (IRF) Estimated Hrs Per Day: 1.5 hours per day [facility] Speech Therapy Treatment Plan: Continue Plan of Care Treatment Duration: Jul 20, 2019 Frequency: 4 times per week Estimated Hrs Per Day: .5 hour per day Telemarketing Fundraiser/Case Mgmt Telemarketing Fundraiser/Case Managemen: Discharge Planning Dietitian/Jet Mechanic Dietitian/Jet Mechanic to monitor nutritional status and make changes and/or recommendations as needed and work with speech pathology on dietary upgrades as the occur. Physician IP Medical Issues being managed closely and that require the 24 hour availability of a physician: Recent hip fracture and multiple falls with severe iron def anemia requiring iron infusions and close monitoring Medical Issues: Bowel/Bladder Function, DVT Prophylaxis, Falls Precautions, Fluid/Electrolyte/Nutrition Balance, Infection Protection Brief Synthesis of Preadmission Screen, Post-Admission Evaluation, and Therapy Evaluations: PT and OT will work together to regain function in order to return to live at home alone Medical Prognosis: Good Anticipated Length of Stay: 7 days DANIELLA KERN DO Jul 21, 2019 05:44
[2019-07-21 05:55] LABS: ALANINE AMINOTRANSFERASE 15 U/L (0-55); ALBUMIN 2.8 GM/DL (3.2-4.5); ALKALINE PHOSPHATASE 56 U/L (40-136); BILIRUBIN,TOTAL 0.7 MG/DL (0.1-1.0); BUN/CREATININE RATIO 18; CALCIUM 8.3 MG/DL (8.5-10.1); CARBON DIOXIDE 21 MMOL/L (21-32); CHLORIDE 104 MMOL/L (98-107); CREATININE SERUM 0.65 MG/DL (0.60-1.30); GFR ESTIMATED > 60; GLUCOSE 107 MG/DL (70-105); POTASSIUM 3.9 MMOL/L (3.6-5.0); SODIUM 134 MMOL/L (135-145); TOTAL PROTEIN 5.9 GM/DL (6.4-8.2)
[2019-07-21] MEDS: GLIMEPIRIDE 4 MG (AMARYL) TAB PO SCH (06:29)
--- NOTE | 2019-07-21 07:40 | Progress Note ---
Standard Progress Note Progress Notes/Assess & Plan Date Seen by a Provider: Jul 21, 2019 Time Seen by a Provider: 07:39 Progress/Assessment & Plan no complaints BLE without tendernss. Neg Denis's s/p L hip bipolar PT/OT Final Diagnosis no complaints Vital Signs Date Time Temp Pulse Resp B/P (MAP) Pulse Ox O2 Delivery O2 Flow Rate FiO2 07/21/19 05:06 37.3 86 20 122/77 (92) 98 Room Air 07/20/19 20:10 Room Air 07/20/19 18:37 37.7 100 16 115/67 (83) 96 Room Air 07/20/19 11:17 36.8 102 20 118/53 95 Room Air 07/20/19 11:15 Room Air I & O 07/21/19 07:00 Intake Total 550 ml Balance 550 ml Laboratory Tests Test 07/21/19 05:04 Range/Units White Blood Count 10.5 4.3-11.0 10^3/uL Red Blood Count 2.90 L 4.35-5.85 10^6/uL Hemoglobin 8.8 L 11.5-16.0 G/DL Hematocrit 27 L 35-52 % Mean Corpuscular Volume 93 80-99 FL Mean Corpuscular Hemoglobin 30 25-34 PG Mean Corpuscular Hemoglobin Concent 33 32-36 G/DL Red Cell Distribution Width 14.6 H 10.0-14.5 % Platelet Count 175 130-400 10^3/uL Mean Platelet Volume 11.5 H 7.4-10.4 FL Neutrophils (%) (Auto) 77 H 42-75 % Lymphocytes (%) (Auto) 9 L 12-44 % Monocytes (%) (Auto) 12 0-12 % Eosinophils (%) (Auto) 2 0-10 % Basophils (%) (Auto) 0 0-10 % Neutrophils # (Auto) 8.1 H 1.8-7.8 X 10^3 Lymphocytes # (Auto) 1.0 1.0-4.0 X 10^3 Monocytes # (Auto) 1.3 H 0.0-1.0 X 10^3 Eosinophils # (Auto) 0.2 0.0-0.3 10^3/uL Basophils # (Auto) 0.0 0.0-0.1 10^3/uL Sodium Level 134 L 135-145 MMOL/L Potassium Level 3.9 3.6-5.0 MMOL/L Chloride Level 104 98-107 MMOL/L Carbon Dioxide Level 21 21-32 MMOL/L Anion Gap 9 5-14 MMOL/L Blood Urea Nitrogen 12 7-18 MG/DL Creatinine 0.65 0.60-1.30 MG/DL Estimat Glomerular Filtration Rate > 60 BUN/Creatinine Ratio 18 Glucose Level 107 H 70-105 MG/DL Calcium Level 8.3 L 8.5-10.1 MG/DL Corrected Calcium 9.3 8.5-10.1 MG/DL Total Bilirubin 0.7 0.1-1.0 MG/DL Aspartate Amino Transf (AST/SGOT) 20 5-34 U/L Alanine Aminotransferase (ALT/SGPT) 15 0-55 U/L Alkaline Phosphatase 56 40-136 U/L Total Protein 5.9 L 6.4-8.2 GM/DL Albumin 2.8 L 3.2-4.5 GM/DL L hip dressing intact no calf tenderness, neg Denis's s/p L hip bipolar doing well PT/OT DEANDRE WALLACE MD Jul 21, 2019 07:40
[2019-07-21] MEDS: PIOGLITAZONE 30MG (ACTOS) TAB PO SCH (08:50)
[2019-07-21] MEDS: DOCUSATE SODIUM 100 MG (COLACE) CAP PO SCH ×2 (08:51→20:37)
[2019-07-21] MEDS: lisINopril 40 MG (PRINIVIL) TABLET PO SCH (08:52)
[2019-07-21] MEDS: POLYETHYLENE GLYCOL 17 GM (MIRALAX) PACK PO SCH ×2 (08:52→20:37)
[2019-07-21] MEDS: SENNA W/DOCUSATE (SENOKOT S) TABLET PO SCH ×2 (08:52→20:37)
[2019-07-21] MEDS: ENOXAPARIN 40 MG/0.4 ML (LOVENOX) SYR SC SCH (08:52)
[2019-07-21] MEDS: IRON SUCROSE 200 MG/10 ML (VENOFER) VIAL IV SCH (08:52)
--- NOTE | 2019-07-21 09:14 | Speech Therapy Daily Note ---
Speech Daily Progress Note Subjective Date Seen by Provider: Jul 21, 2019 Time Seen by Provider: 08:30 Patient was pleasant and cooperative for all therapy activities. Patient was sitting upright in her bed for the duration of therapy activities. Objective Patient completed memory tasks pertaining to familial background with 90% accuracy with minimal cues. Treatment Plan Continue Plan of Care Speech Short Term Goals Short Term Goals Short Term Goals 1. Patient will complete memory tasks with 90% or greater accuracy with minimal cues. 2. Patient will complete safety awareness tasks with 90% or greater accuracy with minimal cues. 3. Patient will complete problem-solving tasks with 90% or greater accuracy with minimal cues. Speech [employer] Crew Boss Goals [employer] Crew Boss Goals Patient will improve cognitive-communication necessary for safety and daily living tasks with minimal assist. Speech-Plan Patient/Family Goals Patient/Family Goals: Patient reports wanting to return back home to previous level of mobility and independence. Treatment Plan Speech Therapy Treatment Plan: Continue Plan of Care Treatment Duration: Jul 20, 2019 Frequency: 4 times per week Estimated Hrs Per Day: .5 hour per day Rehab Potential: Good Barriers to Learning: Mild cognitive deficits Pt/Family Agrees to Plan: Yes Safety Risks/Education Teaching Recipient: Patient Teaching Methods: Demonstration, Discussion Response to Teaching: Verbalize Understanding Education Topics Provided: Patient was educated on safety awareness strategies for when she returns home. Time Speech Therapy Time In: 08:30 Speech Therapy Time Out: 09:00 Total Billed Time: 30 Billed Treatment Time [address] Jul 21, 2019 09:14
--- NOTE | 2019-07-21 10:21 | PM&R Progress Note ---
Subjective HPI/CC On Admission Date Seen by Provider: Jul 21, 2019 Time Seen by Provider: 08:45 Subjective/Events-last exam Venofer Iron infusion given for iron level non-existent less than 14 Last BM was several days ago so she will get a suppository although she doesn't want one to resolve this issue Pain is okay Blood sugar is okay Reviewed the rest of labs and everything was good Checked meds and labs Conferred with RN Reviewed therapy notes Review of Systems General: Fatigue Musculoskeletal: leg pain Objective Exam Vital Signs Vital Signs Date Time Temp Pulse Resp B/P (MAP) Pulse Ox O2 Delivery O2 Flow Rate FiO2 07/22/19 06:22 37.2 96 18 129/75 (93) 93 Room Air Capillary Refill : Less Than 3 SecondsLess Than 3 Seconds General Appearance: No Apparent Distress, WD/WN, Chronically ill HEENT: PERRL/EOMI, Normal ENT Inspection, Pharynx Normal Neck: Full Range of Motion, Normal Inspection, Non Tender, Supple, Carotid Bruit Respiratory: Chest Non Tender, Lungs Clear, Normal Breath Sounds, No Accessory Muscle Use, No Respiratory Distress Cardiovascular: Regular Rate, Rhythm, No Edema, No Gallop, No JVD, No Murmur, Normal Peripheral Pulses Gastrointestinal: Normal Bowel Sounds, No Organomegaly, No Pulsatile Mass, Non Tender, Soft Back: Normal Inspection, No CVA Tenderness, No Vertebral Tenderness Extremity: Normal Capillary Refill, Normal Inspection, Normal Range of Motion (except left leg), Non Tender, No Calf Tenderness, No Pedal Edema Neurologic/Psychiatric: Alert, Oriented x3, No Motor/Sensory Deficits, crosscutter II- XII Norm as Tested, Depressed Affect Skin: Normal Color, Warm/Dry Lymphatic: No Adenopathy Results/Procedures Lab Patient resulted labs reviewed. FIM Transfers Therapy Code Descriptions/Definitions Functional [place] Measure: 0=Not Assessed/NA 4=Minimal Assistance 1=Total Assistance 5=Supervision or Setup 2=Maximal Assistance 6=Modified [place] 3=Moderate Assistance 7=Complete IndependenceSCALE: Activities may be completed with or without assistive devices. 5-Ikfjnzzjxy-qttpndi completes the activity by him/herself with no assistance from a helper. 5-Set-up or Clean-up Assistance-helper sets up or cleans up; patient completes activity. Patton assists only prior to or following the activity. 4-Supervision or Touching Assistance-helper provides verbal cues and/or touc ramana/steadying and/or contact guard assistance as patient completes activity. Assistance may be provided throughout the activity or intermittently. 3-Partial/Moderate Assistance-helper does LESS THAN HALF the effort. Patton lifts, holds or supports trunk or limbs, but provides less than half the effort. 2-Substantial/Maximal Assistance-helper does MORE THAN HALF the effort. Patton lifts or holds trunk or limbs and provides more than half the effort. 1-Msukbyzbx-rgxyik does ALL the effort. Patient does none of the effort to complete the activity. Or, the assistance of 2 or more helpers is required for the patient to complete the activity. If activity was not attempted, code reason: 7-Patient Refused. 9-Not Applicable-not attempted and the patient did not perform the activity before the current illness, exacerbation or injury. 10-Not Attempted due to Environmental Limitations-(lack of equipment, weather restraints, etc.). 88-Not Attempted due to Medical Conditions or Safety Concerns. Roll Left to Right (QC): 5 Sit to Lying (QC): 3 Sit to Stand (QC): 4 Chair/Edv-fx-Okobk Xfer(QC): 4 Car Transfer (QC): 3 Gait Training Does the Patient Walk?: Yes Walk 10 feet (QC): 4 Walk 50 ft with 2 Turns(QC): 4 Walk 150 ft (QC): 4 Walking 10ft/uneven surface-QC: 4 Gait Assistive Device: FWW Wheelchair Training Does the Pt Use a Wheelchair?: No Wheel 50 ft with 2 turns (QC): 09 Wheel 150 ft (QC): 09 Type of Wheelchair: N/A Stair Training #of Steps: 1 1 Step (curb) (QC): 4 4 Steps (QC): 88 12 Steps (QC): 88 Balance Picking up an Object (QC): 88 ADL-Treatment Eating (QC): 6 Oral Hygiene (QC): 88 Shower/Bathe Self (QC): 7 (Pt. declines bathing at this time. Agrees to do tomorrow.) Upper Body Dressing (QC): 3 (Min assist to pull shirt down in back.) Lower Body Dressing (QC): 2 (Hip precautions. Pt. is able to verbalize them.) On/Off Footwear (QC): 2 Toileting Hygiene (QC): 7 Assessment/Plan Assessment and Plan Assess & Plan/Chief Complaint Assessment: Left hip fracture s/p repair uncomplicated NHL hx HTN DM Acute blood loss anemia Post op constipation Plan: BM regimen to intensify IRF protocol Pain control (1) Left displaced femoral neck fracture (2) Non-Hodgkin lymphoma in remission (3) Constipation (4) Anemia due to blood loss, acute (5) Essential (primary) hypertension (6) Diabetes type 2, controlled Status: Acute (7) Fall Status: Acute DANIELLA KERN DO Jul 21, 2019 10:21
--- NOTE | 2019-07-21 11:06 | Occupational Ther Daily Note ---
OT Current Status-Daily Note Subjective No pain reported. Appearance Pt. up in chair. Declines showering but agrees to sponge bathe. Mental Status/Objective Patient Orientation: Person, Place, Time, Situation Attachments: IV ADL-Treatment Therapy Code Descriptions/Definitions Functional [place] Measure: 0=Not Assessed/NA 4=Minimal Assistance 1=Total Assistance 5=Supervision or Setup 2=Maximal Assistance 6=Modified [place] 3=Moderate Assistance 7=Complete IndependenceSCALE: Activities may be completed with or without assistive devices. 1-Xgdctjylaf-yvbluft completes the activity by him/herself with no assistance from a helper. 5-Set-up or Clean-up Assistance-helper sets up or cleans up; patient completes activity. Vale assists only prior to or following the activity. 4-Supervision or Touching Assistance-helper provides verbal cues and/or touching/steadying and/or contact guard assistance as patient completes activity. Assistance may be provided throughout the activity or intermittently. 3-Partial/Moderate Assistance-helper does LESS THAN HALF the effort. [place] lifts, holds or supports trunk or limbs, but provides less than half the effort. 2-Substantial/Maximal Assistance-helper does MORE THAN HALF the effort. [place] lifts or holds trunk or limbs and provides more than half the effort. 5-Vmzhlaoxu-dzzgfi does ALL the effort. Patient does none of the effort to complete the activity. Or, the assistance of 2 or more helpers is required for the patient to complete the activity. If activity was not attempted, code reason: 7-Patient Refused. 9-Not Applicable-not attempted and the patient did not perform the activity before the current illness, exacerbation or injury. 10-Not Attempted due to Environmental Limitations-(lack of equipment, weather restraints, etc.). 88-Not Attempted due to Medical Conditions or Safety Concerns. Oral Hygiene (QC): 4 (SBA in stance at sink to brush teeth.) Shower/Bathe Self (QC): 4 (CGA in stance. Pt. able to wash bilateral LE with LH sponge. Applied lotion to bilateral LE with LH sponge.) Upper Body Dressing (QC): 5 (Set up) Lower Body Dressing (QC): 3 (Min assist to don pants with Dressing stick.) On/Off Footwear: 3 (Min assist to don slipper socks with sock aide.) Toileting Hygiene (QC): 4 Toilet Transfer (QC): 4 Education OT Patient Education: Correct positioning, Modified ADL techniques, Progress toward Goal/Update tx plan, Purpose of tx/functional activities, Reviewed precautions, Rehab process, Transfer techniques, Use of adapted equipment Teaching Recipient: Patient Teaching Methods: Demonstration, Discussion Response to Teaching: Verbalize Understanding, Return Demonstration OT Short Term Goals Short Term Goals Time Frame: Jul 27, 2019 Eatin Oral hygiene: 5 Toileting hygiene: 5 Shower/bathe self: 4 Upper body dressin Lower body dressin Putting on/taking off footwear: 4 OT Project Finance Analyst Goals Project Finance Analyst Goals Time Frame: Aug 03, 2019 Eating (QC): 6 Oral Hygiene (QC): 6 Toileting Hygiene (QC): 6 Shower/Bathe Self (QC): 5 Upper Body Dressing (QC): 6 Lower Body Dressing (QC): 6 On/Off Footwear (QC): 6 Additional Goals: 1-Demonstrate ADL Tasks, 2-Verbalize Understanding, 3- ImproveStrength/Tye 1=Demonstrate adherence to instructed precautions during ADL tasks. 2=Patient will verbalize/demonstrate understanding of assistive devices/modifications for ADL. 3=Patient will improve strength/tolerance for activity to enable patient to perform ADL's. OT Education/Plan Problem List/Assessment Assessment: Decreased Activ Tolerance, Impaired I ADL's, Impaired Self-Care Skills Discharge Recommendations Plan/Recommendations: Continue POC Therapy Discharge Recommendati: Post Acute OT Equpiment Recommendations-D/C: Hip Kit Treatment Plan/Plan of Care Treatment,Training & Education: Yes Patient would benefit from OT for education, treatment and training to promote independence in ADL's, mobility, safety and/or upper extremity function for ADL's. Plan of Care: ADL Retraining, Functional Mobility, Group Exercise/Act as Ind, UE Funct Exercise/Act Treatment Duration: Aug 03, 2019 Frequency: At least 5 of 7 days/Wk (IRF) Estimated Hrs Per Day: 1.5 hours per day Agreement: Yes Rehab Potential: Good Time/GCodes Start Time: 10:00 Stop Time: 11:00 Total Time Billed (hr/min): 60 Billed Treatment Time 1, ADL x 4 MYAH ASTORGA OT Jul 21, 2019 11:06
--- NOTE | 2019-07-21 11:07 | Physical Therapy Daily Note ---
PT Daily Note-Current Subjective Pt sitting up in bed upon arrival. Nurse needs to give pain med and places/starts IV for Iron at start of Rx. Pt agrees to PT. Pain Numeric Pain Scale: 5-Moderate Pain Location: Left Location Body Site: Hip Pain Description: Ache Mental Status Patient Orientation: Person, Place, Time, Situation Attachments: Other-See Comments (Foam Abductor) Transfers SCALE: Activities may be completed with or without assistive devices. 9-Toequxxzxp-dcdjrqm completes the activity by him/herself with no assistance from a helper. 5-Set-up or Clean-up Assistance-helper sets up or cleans up; patient completes activity. Richey assists only prior to or following the activity. 4-Supervision or Touching Assistance-helper provides verbal cues and/or moises zhang/steadying and/or contact guard assistance as patient completes activity. Assistance may be provided throughout the activity or intermittently. 3-Partial/Moderate Assistance-helper does LESS THAN HALF the effort. Richey lifts, holds or supports trunk or limbs, but provides less than half the effort. 2-Substantial/Maximal Assistance-helper does MORE THAN HALF the effort. Richey lifts or holds trunk or limbs and provides more than half the effort. 3-Ucrjzjbkt-hizbjy does ALL the effort. Patient does none of the effort to complete the activity. Or, the assistance of 2 or more helpers is required for the patient to complete the activity. If activity was not attempted, code reason: 7-Patient Refused. 9-Not Applicable-not attempted and the patient did not perform the activity before the current illness, exacerbation or injury. 10-Not Attempted due to Environmental Limitations-(lack of equipment, weather restraints, etc.). 88-Not Attempted due to Medical Conditions or Safety Concerns. Sit to Lying (QC): 4 Lying to Sitting/Side of Bed(Q: 4 Sit to Stand (QC): 4 Weight Bearing Left Lower Extremity: Left Weight Bearing/Tolerated Gait Training Does the Patient Walk?: Yes Distance: 150' Walk 10 feet (QC): 5 Walk 50 ft with 2 Turns(QC): 5 Walk 150 ft (QC): 5 Gait Persons Needed: 1 Gait Assistive Device: FWW Pt walks with slight antalgic gait pattern. Exercises Supine Ex: Ankle pumps, Quad Set NuStep Minutes: 10 NuStep Workload: 1 Treatments Nurse in room and place IV needle and giving Iron at beginning of Rx. Pt completes AP & QS in bed. Pt transfers from bed to standing. Pt uses restroom before leaving room. Pt uses NuStep for 10m at WL 1 for ROM. Pt ambulates back to room to rest at end of Rx. Pt resting in recliner with all needs met, call light in hand as OT arrives. Assessment Current Status: Good Progress Pt reports feeling a little tired and sore today. Pt moves slowly to start Rx but improves throughout. PT Short Term Goals Short Term Goals Time Frame: Jul 26, 2019 Roll Left & Right: 4 Sit to lyin Lying to sitting on side of be: 4 Sit to stand: 4 Chair/hwj-bd-tledi transfer: 4 Toilet transfer: 4 Car transfer: 4 Walk 10 feet: 4 Walk 50 feet with two turns: 4 Walk 150 feet: 4 Walking 10ft on uneven surface: 4 1 step (curb): 4 PT Residential Goals Residential Goals PT Book Store Associate Goals Time Frame: Aug 10, 2019 Roll Left & Right (QC): 6 Sit to Lying (QC): 6 Lying-Sitting on Side/Bed(QC): 6 Sit to Stand (QC): 6 Chair/Cup-ue-Hbxrh Xfer(QC): 6 Toilet Transfer (QC): 6 Car Transfer (QC): 6 Does the Patient Walk: Yes Walk 10 feet (QC): 6 Walk 50ft with 2 Turns (QC): 6 Walk 150 ft (QC): 6 Walking 10ft on Uneven Surface: 6 1 Step (curb) (QC): 6 4 Steps (QC): 6 Does the Pt use WC or Scooter?: No PT Plan Problem List Problem List: Activity Tolerance, Functional Strength, Balance, Gait, Transfer Treatment/Plan Treatment Plan: Continue Plan of Care Treatment Plan: Bed Mobility, Education, Functional Activity Tye, Functional Strength, Gait, Safety, Therapeutic Exercise, Transfers Treatment Duration: Jul 29, 2019 Frequency: At least 5 of 7 days/Wk (IRF) Estimated Hrs Per Day: 1.5 hours per day Patient and/or Family Agrees t: Yes Safety Risks/Education Patient Education: Gait Training, Transfer Techniques, Correct Positioning, Safety Issues Teaching Recipient: Patient Teaching Methods: Discussion Response to Teaching: Verbalize Understanding Time/GCodes Time In: 900 Time Out: 1000 Total Billed Treatment Time: 60 Total Billed Treatment 1, FA x2 (25m), EX (15m) & GT (20m) KISHOR LUDWIG INSTRUMENTATION FITTER Jul 21, 2019 11:07
--- NOTE | 2019-07-21 11:29 | Progress Note - Hospitalist ---
[facility] 07/21/19 1129: Subjective HPI/CC On Admission Date Seen by Provider: Jul 21, 2019 Time Seen by Provider: 08:00 Subjective/Events-last exam Patient was sitting up comfortably in bed and is now on the rehab floor. Patient is doing well and has no new complaints. Will participate in therapy as prescribed. Patient has not had a bowel movement since admission and stool softeners are on board. Family is keeping up with her care and will be visiting periodically. Objective Exam Vital Signs Vital Signs Date Time Temp Pulse Resp B/P (MAP) Pulse Ox O2 Delivery O2 Flow Rate FiO2 07/21/19 08:10 Room Air 07/21/19 05:06 37.3 86 20 122/77 (92) 98 Capillary Refill : Less Than 3 SecondsLess Than 3 Seconds General Appearance: No Apparent Distress, WD/WN HEENT: PERRL/EOMI, Pharynx Normal Neck: Non Tender, Supple Respiratory: Chest Non Tender, Lungs Clear, Normal Breath Sounds, No Accessory Muscle Use, No Respiratory Distress Cardiovascular: Regular Rate, Rhythm, No Edema, No Gallop, No Murmur, Normal Peripheral Pulses Gastrointestinal: No Pulsatile Mass, Non Tender, Soft Rectal: Deferred Back: No CVA Tenderness Extremity: Non Tender Neurologic/Psychiatric: Alert, Oriented x3 Results/Procedures Lab Laboratory Tests 07/21/19 05:04 Patient resulted labs reviewed. Assessment/Plan Assessment and Plan Assess & Plan/Chief Complaint Assessment/Plan s/p left femoral neck fracture repair without complications - Pain control and rehab for strength and fall prevention education Constipation - Stool softeners/suppository Non-Insulin dependent type 2 diabetes - Monitor glucose and continue home meds HTN - well controlled, continue home meds Possible arthritis in feet - Consult podiatry. Patient was asking about surgery to repair deformity Use IS DVT Prophylaxis Diabetes education Fam hx of heart disease Fam hx of dementia Clinical Quality Measures DVT/VTE Risk/Contraindication: Risk Factor Score Per Nursin RFS Level Per Nursing on Admit: 4+=Very High DANIELLA KERN DO 07/21/19 2143: [facility] Jul 21, 2019 11:29 DANIELLA KERN DO Jul 21, 2019 21:43
--- NOTE | 2019-07-21 13:19 | NUR ---
CM/SS, ADMISSION Patient was admitted to ARU 07/20/19 post op for Left Hip Fracture and Bipolar Replacement. Patient resided at home alone and was completely IADL, including driving. She resides in the [place] town of [place], her three children reside in [place] as well in close proximity. They are a family that shares daily contact and generally have their evening meal together at her house. Her goal is to return home as before with continued family support. DME: Patient has an older walker, she will need a FWW for home use. HHC: Regarding post hospital PT, patient requested HHC rather than OP services. Medicare Compare information left with patient for her review and explained those in her service area. Will set up services once choice agency is identified. PCP: Dr. López Jorge PHARMACY: [facility] ADVANCED DIRECTIVE: None currently, patient expressed interest. Sales Agent [employer] explained both Living Will and Power of Anodize Machine Operator for Healthcare, will followup for completion if she desires. INSURED: Medicare and [employer] [facility] Supplement Purpose of the weekly team conference was discussed, patient will be reviewed next Thursday. Patient identifies no psychosocial issues and family support is established. CONTACTS: Heladio Hooper, Son [address] [place] [address] Romina Mosley, Daughter (her son Richardson Mosley) [address] [place] [address] Ethan Hooper, Son [address] [place] [address]
--- NOTE | 2019-07-21 14:41 | Occupational Ther Daily Note ---
OT Current Status-Daily Note Subjective No pain reported. Appearance Pt. in gym after PT session. Mental Status/Objective Patient Orientation: Person, Place, Time, Situation ADL-Treatment Therapy Code Descriptions/Definitions Functional [place] Measure: 0=Not Assessed/NA 4=Minimal Assistance 1=Total Assistance 5=Supervision or Setup 2=Maximal Assistance 6=Modified [place] 3=Moderate Assistance 7=Complete IndependenceSCALE: Activities may be completed with or without assistive devices. 0-Sjcevcfdix-roqqudx completes the activity by him/herself with no assistance from a helper. 5-Set-up or Clean-up Assistance-helper sets up or cleans up; patient completes activity. [place] assists only prior to or following the activity. 4-Supervision or Touching Assistance-helper provides verbal cues and/or touchin g/steadying and/or contact guard assistance as patient completes activity. Assistance may be provided throughout the activity or intermittently. 3-Partial/Moderate Assistance-helper does LESS THAN HALF the effort. [place] lifts, holds or supports trunk or limbs, but provides less than half the effort. 2-Substantial/Maximal Assistance-helper does MORE THAN HALF the effort. [place] lifts or holds trunk or limbs and provides more than half the effort. 0-Jihmjknwv-qtxyvs does ALL the effort. Patient does none of the effort to complete the activity. Or, the assistance of 2 or more helpers is required for the patient to complete the activity. If activity was not attempted, code reason: 7-Patient Refused. 9-Not Applicable-not attempted and the patient did not perform the activity before the current illness, exacerbation or injury. 10-Not Attempted due to Environmental Limitations-(lack of equipment, weather restraints, etc.). 88-Not Attempted due to Medical Conditions or Safety Concerns. Other Treatment Pt. completed 15 minutes on arm bike at min resistance for overall endurance and strength. Tolerated this well. Unable to push chair away from table. OT did this for her. Stood from chair at walker with CGA. Ambulated at slow pace to room with walker and CGA. Pt. attempted to get left LE into bed, but unable to raise it. OT did this for her. Once pt. in bed, with cues and increased time was able to position self to comfort level. All needs met. Education OT Patient Education: Correct positioning, Modified ADL techniques, Progress toward Goal/Update tx plan, Purpose of tx/functional activities, Reviewed precautions, Rehab process, Transfer techniques Teaching Recipient: Patient Teaching Methods: Demonstration, Discussion Response to Teaching: Verbalize Understanding, Return Demonstration OT Short Term Goals Short Term Goals Time Frame: Jul 27, 2019 Eatin Oral hygiene: 5 Toileting hygiene: 5 Shower/bathe self: 4 Upper body dressin Lower body dressin Putting on/taking off footwear: 4 OT Scrap Shear Operator Goals Fdc Goals Time Frame: Aug 03, 2019 Eating (QC): 6 Oral Hygiene (QC): 6 Toileting Hygiene (QC): 6 Shower/Bathe Self (QC): 5 Upper Body Dressing (QC): 6 Lower Body Dressing (QC): 6 On/Off Footwear (QC): 6 Additional Goals: 1-Demonstrate ADL Tasks, 2-Verbalize Understanding, 3- ImproveStrength/Tye 1=Demonstrate adherence to instructed precautions during ADL tasks. 2=Patient will verbalize/demonstrate understanding of assistive devices/modifications for ADL. 3=Patient will improve strength/tolerance for activity to enable patient to perform ADL's. OT Education/Plan Problem List/Assessment Assessment: Decreased Activ Tolerance, Impaired I ADL's, Impaired Self-Care Skills Discharge Recommendations Plan/Recommendations: Continue POC Equpiment Recommendations-D/C: Hip Kit Treatment Plan/Plan of Care Treatment,Training & Education: Yes Patient would benefit from OT for education, treatment and training to promote independence in ADL's, mobility, safety and/or upper extremity function for ADL's. Plan of Care: ADL Retraining, Functional Mobility, Group Exercise/Act as Ind, UE Funct Exercise/Act Treatment Duration: Aug 03, 2019 Frequency: At least 5 of 7 days/Wk (IRF) Estimated Hrs Per Day: 1.5 hours per day Agreement: Yes Rehab Potential: Good Time/GCodes Start Time: 13:30 Stop Time: 14:00 Total Time Billed (hr/min): 30 Billed Treatment Time 1, FA x 15minutes, Ex x 15minutes MYAH ASTORGA OT Jul 21, 2019 14:41
--- NOTE | 2019-07-21 15:01 | NUR ---
RD ASSESSMENT PMHx: Hodgkin's lymphoma; HTN; T2DM; HLD PT INTERACTION: Pt was awake and pleasant during nutrition assessment. Pt states current appetite is "getting better." Note avg PO intake of 75% x2meal, per chart review. Pt states following a regular diet at home and has no issues with chewing/swallowing food. Pt states no recent issues with n/v at this time. Pt states some recent issues with constipation, and that her last BM was 07/17. Note pt currently on bowel regimen of colace BID; senna BID; and miralax BID, per chart review. Pt states her wt has "probably gone up," but unsure of amount/timeframe. Note unable to determine recent wt hx, per chart review. Pt states current DM management is pretty good, but she is unsure of her average blood glucose levels. ABNORMAL NUTRITION-RELATED LAB VALUES LOW: Na 134; Ca 8.3; Pro 5.9; alb 2.8 HIGH: glu 107 Est. kcal needs: 4147-4734 kcal | 15-20 kcal/kg Est. Pro needs: 74-92 g Pro | 0.8-1.0 g Pro/kg PES STATEMENT: Given pt's PO intake, no nutrition diagnosis at this time (NO-1.1) INTERVENTION: Continue with current diet order of CHO 60g/m 0snack diet. Will continue to follow and reassess as pt needs and status change. MONITOR/EVALUATE: PO Intake; Plan of Care; Hydration Status; Weight Status; Lab Values Ricardo Callahan, MS, RD, LD
--- NOTE | 2019-07-21 15:02 | Physical Therapy Daily Note ---
PT Daily Note-Current Subjective Pt sitting in recliner upon arrival. Pt is visiting with grandson. Pt agrees to PT. Pain Numeric Pain Scale: 3 Location: Left Location Body Site: Hip Pain Description: Ache Mental Status Patient Orientation: Person, Place, Time, Situation Transfers SCALE: Activities may be completed with or without assistive devices. 4-Msgavkdshm-snvyfhj completes the activity by him/herself with no assistance from a helper. 5-Set-up or Clean-up Assistance-helper sets up or cleans up; patient completes activity. [place] assists only prior to or following the activity. 4-Supervision or Touching Assistance-helper provides verbal cues and/or to uching/steadying and/or contact guard assistance as patient completes activity. Assistance may be provided throughout the activity or intermittently. 3-Partial/Moderate Assistance-helper does LESS THAN HALF the effort. [place] lifts, holds or supports trunk or limbs, but provides less than half the effort. 2-Substantial/Maximal Assistance-helper does MORE THAN HALF the effort. [place] lifts or holds trunk or limbs and provides more than half the effort. 0-Melooenhx-ylqslc does ALL the effort. Patient does none of the effort to complete the activity. Or, the assistance of 2 or more helpers is required for the patient to complete the activity. If activity was not attempted, code reason: 7-Patient Refused. 9-Not Applicable-not attempted and the patient did not perform the activity before the current illness, exacerbation or injury. 10-Not Attempted due to Environmental Limitations-(lack of equipment, weather restraints, etc.). 88-Not Attempted due to Medical Conditions or Safety Concerns. Sit to Stand (QC): 4 Weight Bearing Left Lower Extremity: Left Weight Bearing/Tolerated Gait Training Does the Patient Walk?: Yes Distance: 150' Walk 10 feet (QC): 5 Walk 50 ft with 2 Turns(QC): 5 Walk 150 ft (QC): 5 Gait Persons Needed: 1 Gait Assistive Device: FWW Treatments Pt transfers from recliner to standing, uses restroom then ambulates in hallway to Therapy Gym. OT then arrives for Rx. Assessment Pt is more mobile from morning Rx. PT Short Term Goals Short Term Goals Time Frame: Jul 26, 2019 Roll Left & Right: 4 Sit to lyin Lying to sitting on side of be: 4 Sit to stand: 4 Chair/zvh-gl-hkndp transfer: 4 Toilet transfer: 4 Car transfer: 4 Walk 10 feet: 4 Walk 50 feet with two turns: 4 Walk 150 feet: 4 Walking 10ft on uneven surface: 4 1 step (curb): 4 PT Snf Goals Snf Goals PT Jammer Operator Goals Time Frame: Aug 10, 2019 Roll Left & Right (QC): 6 Sit to Lying (QC): 6 Lying-Sitting on Side/Bed(QC): 6 Sit to Stand (QC): 6 Chair/Qns-sw-Dghet Xfer(QC): 6 Toilet Transfer (QC): 6 Car Transfer (QC): 6 Does the Patient Walk: Yes Walk 10 feet (QC): 6 Walk 50ft with 2 Turns (QC): 6 Walk 150 ft (QC): 6 Walking 10ft on Uneven Surface: 6 1 Step (curb) (QC): 6 4 Steps (QC): 6 Does the Pt use WC or Scooter?: No PT Plan Problem List Problem List: Activity Tolerance, Functional Strength, Transfer Treatment/Plan Treatment Plan: Continue Plan of Care Treatment Plan: Bed Mobility, Education, Functional Activity Tye, Functional Strength, Gait, Safety, Therapeutic Exercise, Transfers Treatment Duration: Jul 29, 2019 Frequency: At least 5 of 7 days/Wk (IRF) Estimated Hrs Per Day: 1.5 hours per day Patient and/or Family Agrees t: Yes Safety Risks/Education Patient Education: Gait Training, Transfer Techniques, Correct Positioning, Safety Issues Teaching Recipient: Patient Teaching Methods: Discussion Response to Teaching: Verbalize Understanding Time/GCodes Time In: 1315 Time Out: 1330 Total Billed Treatment Time: 15 Total Billed Treatment 1, GT (15m) KISHOR LUDWIG PTA Jul 21, 2019 15:02
[2019-07-21 18:00] VITALS: BP 117/74
[2019-07-21] MEDS: SIMvastatin 40 MG (ZOCOR) TAB PO SCH (20:19)
[2019-07-22 06:22] VITALS: BP 129/75
[2019-07-22] MEDS: GLIMEPIRIDE 4 MG (AMARYL) TAB PO SCH (06:28)
[2019-07-22] MEDS: oxyCODONE/APAP 5/325MG (PERCOCET 5) TABLET PO PRN ×3 (06:28→20:28)
--- NOTE | 2019-07-22 07:06 | Progress Note ---
Standard Progress Note Progress Notes/Assess & Plan Date Seen by a Provider: Jul 22, 2019 Time Seen by a Provider: 07:05 Progress/Assessment & Plan no complaints BLE without tendernss. Neg Denis's s/p L hip bipolar PT/OT Final Diagnosis no complaints Vital Signs Date Time Temp Pulse Resp B/P (MAP) Pulse Ox O2 Delivery O2 Flow Rate FiO2 07/22/19 06:22 37.2 96 18 129/75 (93) 93 Room Air 07/22/19 00:34 Room Air 07/21/19 20:10 Room Air 07/21/19 18:00 37.2 87 18 117/74 (88) 97 Room Air 07/21/19 15:18 93 Room Air 07/21/19 08:10 Room Air I & O 07/22/19 07:00 Intake Total 950 ml Balance 950 ml L hip dressing intact no calf tenderness s/p l hip bipolar progressing well continue PT/OT DEANDRE WALLACE MD Jul 22, 2019 07:06
[2019-07-22 08:13] VITALS: BP 129/75
[2019-07-22] MEDS: lisINopril 40 MG (PRINIVIL) TABLET PO SCH (08:23)
[2019-07-22] MEDS: ENOXAPARIN 40 MG/0.4 ML (LOVENOX) SYR SC SCH (08:23)
[2019-07-22] MEDS: DOCUSATE SODIUM 100 MG (COLACE) CAP PO SCH ×2 (08:23→20:43)
[2019-07-22] MEDS: SENNA W/DOCUSATE (SENOKOT S) TABLET PO SCH ×2 (08:23→20:44)
[2019-07-22] MEDS: POLYETHYLENE GLYCOL 17 GM (MIRALAX) PACK PO SCH ×2 (08:24→20:43)
[2019-07-22] MEDS: PIOGLITAZONE 30MG (ACTOS) TAB PO SCH (08:24)
--- NOTE | 2019-07-22 10:07 | Physical Therapy Daily Note ---
PT Daily Note-Current Subjective Pt. agrees to Rx. States she feels she has made progress. Gets in out on her right side of bed at home Pain Numeric Pain Scale: 3 Location: Right, Left Location Body Site: Hip Pain Description: Ache Mental Status Patient Orientation: Normal For Age Transfers SCALE: Activities may be completed with or without assistive devices. 5-Ligxyiggaf-hpenges completes the activity by him/herself with no assistance from a helper. 5-Set-up or Clean-up Assistance-helper sets up or cleans up; patient completes activity. [place] assists only prior to or following the activity. 4-Supervision or Touching Assistance-helper provides verbal cues and/or touching/steadying and/or contact guard assistance as patient completes activity. Assistance may be provided throughout the activity or intermittently. 3-Partial/Moderate Assistance-helper does LESS THAN HALF the effort. [place] lifts, holds or supports trunk or limbs, but provides less than half the effort. 2-Substantial/Maximal Assistance-helper does MORE THAN HALF the effort. [place] lifts or holds trunk or limbs and provides more than half the effort. 9-Zkelczrsj-aejxht does ALL the effort. Patient does none of the effort to complete the activity. Or, the assistance of 2 or more helpers is required for the patient to complete the activity. If activity was not attempted, code reason: 7-Patient Refused. 9-Not Applicable-not attempted and the patient did not perform the activity before the current illness, exacerbation or injury. 10-Not Attempted due to Environmental Limitations-(lack of equipment, weather restraints, etc.). 88-Not Attempted due to Medical Conditions or Safety Concerns. Roll Left & Right (QC): 6 Sit to Lying (QC): 4 Lying to Sitting/Side of Bed(Q: 5 Sit to Stand (QC): 5 Chair/Sjk-le-Zjvwj Xfer(QC): 5 Toilet Transfer (QC): 5 Weight Bearing Left Lower Extremity: Left Weight Bearing/Tolerated Gait Training Does the Patient Walk?: Yes Walk 10 feet (QC): 5 Walk 50 ft with 2 Turns(QC): 5 Walk 150 ft (QC): 5 Gait Persons Needed: 1 Gait Assistive Device: FWW slow, no LOB, equal step length Exercises Supine Ex: Ankle pumps, Quad Set, Rolling, Glut sets, Heel Slides, Short Arc Quads, Scooting, Straight leg raise (assist), Hip abd/add (sisted) Supine Reps: 15 Seated Therapy Exercises: Ankle pumps, Sit to stand, Long arc quads, Hip abd/add Seated Reps: 15 NuStep Minutes: 8 NuStep Workload: 3 Treatments toileted and washed hands SBA Assessment Current Status: Good Progress PT Short Term Goals Short Term Goals Time Frame: Jul 26, 2019 Roll Left & Right: 4 Sit to lyin Lying to sitting on side of be: 4 Sit to stand: 4 Chair/glu-wf-htuwb transfer: 4 Toilet transfer: 4 Car transfer: 4 Walk 10 feet: 4 Walk 50 feet with two turns: 4 Walk 150 feet: 4 Walking 10ft on uneven surface: 4 1 step (curb): 4 PT Jail Goals Jail Goals PT Electrical Maintenance Engineer Goals Time Frame: Aug 10, 2019 Roll Left & Right (QC): 6 Sit to Lying (QC): 6 Lying-Sitting on Side/Bed(QC): 6 Sit to Stand (QC): 6 Chair/Eyt-jb-Deopt Xfer(QC): 6 Toilet Transfer (QC): 6 Car Transfer (QC): 6 Does the Patient Walk: Yes Walk 10 feet (QC): 6 Walk 50ft with 2 Turns (QC): 6 Walk 150 ft (QC): 6 Walking 10ft on Uneven Surface: 6 1 Step (curb) (QC): 6 4 Steps (QC): 6 Does the Pt use WC or Scooter?: No PT Plan Treatment/Plan Treatment Plan: Continue Plan of Care Treatment Plan: Bed Mobility, Education, Functional Activity Tye, Functional Strength, Gait, Safety, Therapeutic Exercise, Transfers Treatment Duration: Jul 29, 2019 Frequency: At least 5 of 7 days/Wk (IRF) Estimated Hrs Per Day: 1.5 hours per day Patient and/or Family Agrees t: Yes Safety Risks/Education Patient Education: Gait Training, Transfer Techniques, Correct Positioning, Disease Process, Safety Issues Teaching Recipient: Patient Teaching Methods: Demonstration, Discussion Response to Teaching: Verbalize Understanding, Return Demonstration, Reinforcement Needed Time/GCodes Time In: 900 Time Out: 1000 Total Billed Treatment Time: 60 Total Billed Treatment 1,FA25, GT15, EX20 MOY JASMINE COMBAT SYSTEMS ENGINEER Jul 22, 2019 10:07
--- NOTE | 2019-07-22 10:45 | NUR ---
Pastoral Care visit.
--- NOTE | 2019-07-22 11:21 | Occupational Ther Daily Note ---
OT Current Status-Daily Note Subjective Pt alert, sitting in recliner. Pt stated that she was tired from PT. Encouraged pt to participate in OT for bathing and some exercises. No c/o pain at this time. Mental Status/Objective Patient Orientation: Person, Place, Time, Situation ADL-Treatment Pt declined shower, requested sponge bath due to being so tired. After setup, pt able to complete sponge bath with SBA for safety. Pt uses long handle sponge to cleanse lower legs. After setup, pt able to dress upper body by self. After set up, pt able to hike pants over hips with SBA then using dressing stick to thread feet through pant leg with verbal cues to initiate task with L LE. Pt using sock aide to don socks and dressing stick to doff socks. After MERINO brought pt oral care supply, pt completes by self. Therapy Code Descriptions/Definitions Functional [place] Measure: 0=Not Assessed/NA 4=Minimal Assistance 1=Total Assistance 5=Supervision or Setup 2=Maximal Assistance 6=Modified [place] 3=Moderate Assistance 7=Complete IndependenceSCALE: Activities may be completed with or without assistive devices. 6-Phjcjuvdil-edchshc completes the activity by him/herself with no assistance from a helper. 5-Set-up or Clean-up Assistance-helper sets up or cleans up; patient completes activity. [place] assists only prior to or following the activity. 4-Supervision or Touching Assistance-helper provides verbal cues and/or touching/steadying and/or contact guard assistance as patient completes activity. Assistance may be provided throughout the activity or intermittently. 3-Partial/Moderate Assistance-helper does LESS THAN HALF the effort. [place] lifts, holds or supports trunk or limbs, but provides less than half the effort. 2-Substantial/Maximal Assistance-helper does MORE THAN HALF the effort. [place] lifts or holds trunk or limbs and provides more than half the effort. 5-Sswcrhmhs-osfjne does ALL the effort. Patient does none of the effort to c omplete the activity. Or, the assistance of 2 or more helpers is required for the patient to complete the activity. If activity was not attempted, code reason: 7-Patient Refused. 9-Not Applicable-not attempted and the patient did not perform the activity before the current illness, exacerbation or injury. 10-Not Attempted due to Environmental Limitations-(lack of equipment, weather restraints, etc.). 88-Not Attempted due to Medical Conditions or Safety Concerns. Oral Hygiene (QC): 5 Shower/Bathe Self (QC): 4 (SBA in standing to cleanse buttocks/allyson area.) Upper Body Dressing (QC): 5 Lower Body Dressing (QC): 4 On/Off Footwear: 5 Other Treatment Pt given theraband exercises and light resistance theraband for use in room. Skilled instruction needed for technique and positioning of theraband. 2 sets 10 reps of 5 exercises with recovery breaks due to decreased activity tolerance. After therapy, pt sitting in recliner with call light/phone. All needs met in room. OT Short Term Goals Short Term Goals Time Frame: Jul 27, 2019 Eatin Oral hygiene: 5 Toileting hygiene: 5 Shower/bathe self: 4 Upper body dressin Lower body dressin Putting on/taking off footwear: 4 OT Commercial Leasing Agent Goals Skilled Nursing Goals Time Frame: Aug 03, 2019 Eating (QC): 6 Oral Hygiene (QC): 6 Toileting Hygiene (QC): 6 Shower/Bathe Self (QC): 5 Upper Body Dressing (QC): 6 Lower Body Dressing (QC): 6 On/Off Footwear (QC): 6 Additional Goals: 1-Demonstrate ADL Tasks, 2-Verbalize Understanding, 3- ImproveStrength/Tye 1=Demonstrate adherence to instructed precautions during ADL tasks. 2=Patient will verbalize/demonstrate understanding of assistive devices/modifications for ADL. 3=Patient will improve strength/tolerance for activity to enable patient to perform ADL's. OT Education/Plan Problem List/Assessment Assessment: Decreased Activ Tolerance, Impaired Coordination, Impaired I ADL's Discharge Recommendations Plan/Recommendations: Continue POC Treatment Plan/Plan of Care Patient would benefit from OT for education, treatment and training to promote independence in ADL's, mobility, safety and/or upper extremity function for ADL's. Plan of Care: ADL Retraining, Functional Mobility, Group Exercise/Act as Ind, UE Funct Exercise/Act Treatment Duration: Aug 03, 2019 Frequency: At least 5 of 7 days/Wk (IRF) Estimated Hrs Per Day: 1.5 hours per day Agreement: Yes Rehab Potential: Good Time/GCodes Start Time: 10:00 Stop Time: 11:15 Total Time Billed (hr/min): 75 Billed Treatment Time 1 visit-ADL 4 (60 min) EX 1 (15 min) REJI LEYVA Jul 22, 2019 11:21
--- NOTE | 2019-07-22 11:55 | PM&R Progress Note ---
Subjective HPI/CC On Admission Date Seen by Provider: Jul 22, 2019 Time Seen by Provider: 09:30 Subjective/Events-last exam Had a BM today Ice packs provided Iron infusions tolerated Overall doing very well Chronic debility noted Reviewed the rest of labs and everything was good Checked meds and labs Conferred with RN Reviewed therapy notes Review of Systems General: Fatigue Objective Exam Vital Signs Vital Signs Date Time Temp Pulse Resp B/P (MAP) Pulse Ox O2 Delivery O2 Flow Rate FiO2 07/22/19 18:00 37.3 102 18 115/67 (83) 97 Room Air 07/22/19 08:13 21 Capillary Refill : Less Than 3 SecondsLess Than 3 Seconds General Appearance: No Apparent Distress, WD/WN, Chronically ill HEENT: PERRL/EOMI, Normal ENT Inspection, Pharynx Normal Neck: Full Range of Motion, Normal Inspection, Non Tender, Supple, Carotid Bruit Respiratory: Chest Non Tender, Lungs Clear, Normal Breath Sounds, No Accessory Muscle Use, No Respiratory Distress Cardiovascular: Regular Rate, Rhythm, No Edema, No Gallop, No JVD, No Murmur, Normal Peripheral Pulses Gastrointestinal: Normal Bowel Sounds, No Organomegaly, No Pulsatile Mass, Non Tender, Soft Rectal: Deferred Back: Normal Inspection, No CVA Tenderness, No Vertebral Tenderness Extremity: Normal Capillary Refill, Normal Inspection, Normal Range of Motion (except left leg), Non Tender, No Calf Tenderness, No Pedal Edema Neurologic/Psychiatric: Alert, Oriented x3, No Motor/Sensory Deficits, rack maker II- XII Norm as Tested, Depressed Affect Skin: Normal Color, Warm/Dry Lymphatic: No Adenopathy Results/Procedures Lab Patient resulted labs reviewed. FIM Transfers Therapy Code Descriptions/Definitions Functional [place] Measure: 0=Not Assessed/NA 4=Minimal Assistance 1=Total Assistance 5=Supervision or Setup 2=Maximal Assistance 6=Modified [place] 3=Moderate Assistance 7=Complete IndependenceSCALE: Activities may be completed with or without assistive devices. 9-Ydvbkivtvg-dtoeirm completes the activity by him/herself with no assistance from a helper. 5-Set-up or Clean-up Assistance-helper sets up or cleans up; patient completes activity. [place] assists only prior to or following the activity. 4-Supervision or Touching Assistance-helper provides verbal cues and/or touching/steadying and/or contact guard assistance as patient completes activity. Assistance may be provided throughout the activity or intermittently. 3-Partial/Moderate Assistance-helper does LESS THAN HALF the effort. [place] lifts, holds or supports trunk or limbs, but provides less than half the effort. 2-Substantial/Maximal Assistance-helper does MORE THAN HALF the effort. [place] lifts or holds trunk or limbs and provides more than half the effort. 2-Aexkpkkqp-yiajag does ALL the effort. Patient does none of the effort to complete the activity. Or, the assistance of 2 or more helpers is required for the patient to complete the activity. If activity was not attempted, code reason: 7-Patient Refused. 9-Not Applicable-not attempted and the patient did not perform the activity before the current illness, exacerbation or injury. 10-Not Attempted due to Environmental Limitations-(lack of equipment, weather restraints, etc.). 88-Not Attempted due to Medical Conditions or Safety Concerns. Roll Left to Right (QC): 6 Sit to Lying (QC): 4 Sit to Stand (QC): 5 Chair/Tel-jd-Ttzhp Xfer(QC): 5 Car Transfer (QC): 3 Gait Training Does the Patient Walk?: Yes Distance: 150' Walk 10 feet (QC): 5 Walk 50 ft with 2 Turns(QC): 5 Walk 150 ft (QC): 5 Walking 10ft/uneven surface-QC: 4 Gait Persons Needed: 1 Gait Assistive Device: FWW Wheelchair Training Does the Pt Use a Wheelchair?: No Wheel 50 ft with 2 turns (QC): 09 Wheel 150 ft (QC): 09 Type of Wheelchair: N/A Stair Training #of Steps: 1 1 Step (curb) (QC): 4 4 Steps (QC): 88 12 Steps (QC): 88 Balance Picking up an Object (QC): 88 ADL-Treatment Eating (QC): 6 Oral Hygiene (QC): 5 Shower/Bathe Self (QC): 4 (SBA in standing to cleanse buttocks/allyson area.) Upper Body Dressing (QC): 5 Lower Body Dressing (QC): 4 On/Off Footwear (QC): 5 Toileting Hygiene (QC): 4 Toilet Transfer (QC): 4 Assessment/Plan Assessment and Plan Assess & Plan/Chief Complaint Assessment: Left hip fracture s/p repair uncomplicated NHL hx HTN DM Acute blood loss anemia Post op constipation Plan: BM regimen to intensify IRF protocol Pain control Iron infusions (1) Left displaced femoral neck fracture (2) Non-Hodgkin lymphoma in remission (3) Constipation (4) Anemia due to blood loss, acute (5) Essential (primary) hypertension (6) Diabetes type 2, controlled Status: Acute (7) Fall Status: Acute DANIELLA KERN DO Jul 22, 2019 11:55
--- NOTE | 2019-07-22 14:12 | Speech Therapy Daily Note ---
Speech Daily Progress Note Subjective Date Seen by Provider: Jul 22, 2019 Time Seen by Provider: 12:30 Patient was pleasant and cooperative for all therapy tasks. Patient was sitting in her chair eating lunch for the duration of treatment. Objective Patient completed memory tasks pertaining to delayed recall of paragraph information with 70% accuracy. Assessment Assessment Current Status: Good Progress Treatment Plan Continue Plan of Care Speech Short Term Goals Short Term Goals Short Term Goals 1. Patient will complete memory tasks with 90% or greater accuracy with minimal cues. 2. Patient will complete safety awareness tasks with 90% or greater accuracy with minimal cues. 3. Patient will complete problem-solving tasks with 90% or greater accuracy with minimal cues. Speech Fpc Goals Printing Equipment Mechanic Apprentice Goals Patient will improve cognitive-communication necessary for safety and daily living tasks with minimal assist. Speech-Plan Patient/Family Goals Patient/Family Goals: Patient reports wanting to return home to previous level of mobility and independence. Treatment Plan Speech Therapy Treatment Plan: Continue Plan of Care Treatment Duration: Jul 29, 2019 Frequency: 4 times per week Estimated Hrs Per Day: .5 hour per day Rehab Potential: Good Barriers to Learning: Mild cognitive deficits Pt/Family Agrees to Plan: Yes Safety Risks/Education Teaching Recipient: Patient Teaching Methods: Demonstration, Discussion Response to Teaching: Verbalize Understanding Education Topics Provided: Patient was provided strategies to increase recall of immediate memory Time Speech Therapy Time In: 12:30 Speech Therapy Time Out: 13:00 Total Billed Time: 30 Billed Treatment Time [address] Jul 22, 2019 14:12
--- NOTE | 2019-07-22 14:16 | Physical Therapy Daily Note ---
PT Daily Note-Current Subjective Agrees to Rx. States she is tired and will be ready for bed after waking and ex. Pain Numeric Pain Scale: 8 Location: Right Location Body Site: Hip Pain Description: Ache Comment: nurse allerted and brought meds Mental Status Patient Orientation: Normal For Age Transfers SCALE: Activities may be completed with or without assistive devices. 6-Dfmlrtzhbx-cdmvvet completes the activity by him/herself with no assistance from a helper. 5-Set-up or Clean-up Assistance-helper sets up or cleans up; patient completes activity. [place] assists only prior to or following the activity. 4-Supervision or Touching Assistance-helper provides verbal cues and/or touching/steadying and/or contact guard assistance as patient completes activity. Assistance may be provided throughout the activity or intermittently. 3-Partial/Moderate Assistance-helper does LESS THAN HALF the effort. [place] lifts, holds or supports trunk or limbs, but provides less than half the effort. 2-Substantial/Maximal Assistance-helper does MORE THAN HALF the effort. [place] lifts or holds trunk or limbs and provides more than half the effort. 8-Tsqidhxcn-puueym does ALL the effort. Patient does none of the effort to complete the activity. Or, the assistance of 2 or more helpers is required for the patient to complete the activity. If activity was not attempted, code reason: 7-Patient Refused. 9-Not Applicable-not attempted and the patient did not perform the activity before the current illness, exacerbation or injury. 10-Not Attempted due to Environmental Limitations-(lack of equipment, weather restraints, etc.). 88-Not Attempted due to Medical Conditions or Safety Concerns. in out bed CGA, sit to stand SBA Weight Bearing Left Lower Extremity: Left Weight Bearing/Tolerated Gait Training Does the Patient Walk?: Yes Gait Assistive Device: FWW 50ft x 2 FWWCGA. Exercises Supine Ex: Ankle pumps, Heel Slides, Hip abd/add Supine Reps: 10 Treatments toileted SBA Assessment Current Status: Good Progress PT Short Term Goals Short Term Goals Time Frame: Jul 26, 2019 Roll Left & Right: 4 Sit to lyin Lying to sitting on side of be: 4 Sit to stand: 4 Chair/cze-rz-hdifj transfer: 4 Toilet transfer: 4 Car transfer: 4 Walk 10 feet: 4 Walk 50 feet with two turns: 4 Walk 150 feet: 4 Walking 10ft on uneven surface: 4 1 step (curb): 4 PT Fdc Goals Fdc Goals PT Cross Tie Maker Goals Time Frame: Aug 10, 2019 Roll Left & Right (QC): 6 Sit to Lying (QC): 6 Lying-Sitting on Side/Bed(QC): 6 Sit to Stand (QC): 6 Chair/Oaa-ah-Rxugc Xfer(QC): 6 Toilet Transfer (QC): 6 Car Transfer (QC): 6 Does the Patient Walk: Yes Walk 10 feet (QC): 6 Walk 50ft with 2 Turns (QC): 6 Walk 150 ft (QC): 6 Walking 10ft on Uneven Surface: 6 1 Step (curb) (QC): 6 4 Steps (QC): 6 Does the Pt use WC or Scooter?: No PT Plan Treatment/Plan Treatment Plan: Continue Plan of Care Treatment Plan: Bed Mobility, Education, Functional Activity Tye, Functional Strength, Gait, Safety, Therapeutic Exercise, Transfers Treatment Duration: Jul 29, 2019 Frequency: At least 5 of 7 days/Wk (IRF) Estimated Hrs Per Day: 1.5 hours per day Patient and/or Family Agrees t: Yes Safety Risks/Education Patient Education: Gait Training, Transfer Techniques, Correct Positioning, Dis ease Process, Safety Issues Teaching Recipient: Patient Teaching Methods: Demonstration, Discussion Response to Teaching: Verbalize Understanding, Return Demonstration, Reinforcement Needed Time/GCodes Time In: 1330 Time Out: 1345 Total Billed Treatment Time: 15 Total Billed Treatment 1,GT15m MOY JASMINE FARM DEMONSTRATOR Jul 22, 2019 14:16
[2019-07-22 18:00] VITALS: BP 115/67
[2019-07-22] MEDS: SIMvastatin 40 MG (ZOCOR) TAB PO SCH (20:31)
[2019-07-23] MEDS: GLIMEPIRIDE 4 MG (AMARYL) TAB PO SCH (05:53)
[2019-07-23] MEDS: oxyCODONE/APAP 5/325MG (PERCOCET 5) TABLET PO PRN ×2 (06:02→20:10)
[2019-07-23 06:15] VITALS: BP 136/73
[2019-07-23 08:00] VITALS: BP 114/68
[2019-07-23] MEDS: lisINopril 40 MG (PRINIVIL) TABLET PO SCH (08:29)
[2019-07-23] MEDS: DOCUSATE SODIUM 100 MG (COLACE) CAP PO SCH ×2 (08:30→19:15)
[2019-07-23] MEDS: ENOXAPARIN 40 MG/0.4 ML (LOVENOX) SYR SC SCH (08:32)
[2019-07-23] MEDS: PIOGLITAZONE 30MG (ACTOS) TAB PO SCH (08:34)
--- NOTE | 2019-07-23 08:38 | Physical Therapy Daily Note ---
PT Daily Note-Current Subjective Pt. states she is ready to get up. C/o pain in left hip at 6/10 after getting to move around. Pt. states she isnt sure she can walk all the way to the gym but was pleasantly surprised when she did Pain Numeric Pain Scale: 6 Location: Left Location Body Site: Hip Pain Description: Ache Mental Status Patient Orientation: Normal For Age Transfers SCALE: Activities may be completed with or without assistive devices. 6-Srbjkxadlk-ndkcjwt completes the activity by him/herself with no assistance from a helper. 5-Set-up or Clean-up Assistance-helper sets up or cleans up; patient completes activity. [place] assists only prior to or following the activity. 4-Supervision or Touching Assistance-helper provides verbal cues and/or touching/steadying and/or contact guard assistance as patient completes activity. Assistance may be provided throughout the activity or intermittently. 3-Partial/Moderate Assistance-helper does LESS THAN HALF the effort. [place] lifts, holds or supports trunk or limbs, but provides less than half the effort. 2-Substantial/Maximal Assistance-helper does MORE THAN HALF the effort. [place] lifts or holds trunk or limbs and provides more than half the effort. 9-Vuwmwqspu-fviqkt does ALL the effort. Patient does none of the effort to comp lete the activity. Or, the assistance of 2 or more helpers is required for the patient to complete the activity. If activity was not attempted, code reason: 7-Patient Refused. 9-Not Applicable-not attempted and the patient did not perform the activity before the current illness, exacerbation or injury. 10-Not Attempted due to Environmental Limitations-(lack of equipment, weather restraints, etc.). 88-Not Attempted due to Medical Conditions or Safety Concerns. Roll Left & Right (QC): 6 Sit to Lying (QC): 5 Lying to Sitting/Side of Bed(Q: 5 Sit to Stand (QC): 5 Chair/Toy-nb-Jcujy Xfer(QC): 5 Toilet Transfer (QC): 5 instructed regarding sequence and positioning in and out of bed Weight Bearing Left Lower Extremity: Left Weight Bearing/Tolerated Gait Training Does the Patient Walk?: Yes Walk 10 feet (QC): 5 Walk 50 ft with 2 Turns(QC): 5 Walk 150 ft (QC): 5 Gait Persons Needed: 1 Gait Assistive Device: FWW pt. fatigued with gait but no LOB , instructed in alignment and step length Exercises Supine Ex: Bridging, Ankle pumps, Quad Set, Rolling, Glut sets, Heel Slides, Short Arc Quads, Scooting, Straight leg raise (assisted left), Hip abd/add (assisted left) Supine Reps: 15 Treatments toileted SBA Assessment Current Status: Good Progress PT Short Term Goals Short Term Goals Time Frame: Jul 26, 2019 Roll Left & Right: 4 Sit to lyin Lying to sitting on side of be: 4 Sit to stand: 4 Chair/zpy-th-gpdll transfer: 4 Toilet transfer: 4 Car transfer: 4 Walk 10 feet: 4 Walk 50 feet with two turns: 4 Walk 150 feet: 4 Walking 10ft on uneven surface: 4 1 step (curb): 4 PT Mcfp Goals Reinforcing Iron Worker Helper Goals PT Reinforcing Iron Worker Helper Goals Time Frame: Aug 10, 2019 Roll Left & Right (QC): 6 Sit to Lying (QC): 6 Lying-Sitting on Side/Bed(QC): 6 Sit to Stand (QC): 6 Chair/Emn-hn-Ncron Xfer(QC): 6 Toilet Transfer (QC): 6 Car Transfer (QC): 6 Does the Patient Walk: Yes Walk 10 feet (QC): 6 Walk 50ft with 2 Turns (QC): 6 Walk 150 ft (QC): 6 Walking 10ft on Uneven Surface: 6 1 Step (curb) (QC): 6 4 Steps (QC): 6 Does the Pt use WC or Scooter?: No PT Plan Treatment/Plan Treatment Plan: Continue Plan of Care Treatment Plan: Bed Mobility, Education, Functional Activity Tye, Functional Strength, Gait, Safety, Therapeutic Exercise, Transfers Treatment Duration: Jul 29, 2019 Frequency: At least 5 of 7 days/Wk (IRF) Estimated Hrs Per Day: 1.5 hours per day Patient and/or Family Agrees t: Yes Safety Risks/Education Patient Education: Gait Training, Transfer Techniques, Correct Positioning, Disease Process, Safety Issues Teaching Recipient: Patient Teaching Methods: Demonstration, Discussion Response to Teaching: Verbalize Understanding, Return Demonstration, Reinforcement Needed Time/GCodes Time In: 805 Time Out: 830 Total Billed Treatment Time: 25 Total Billed Treatment 1,EX12m,GT13m MOY JASMINE BOX SPRING FRAME BUILDER Jul 23, 2019 08:38
[2019-07-23] MEDS: POLYETHYLENE GLYCOL 17 GM (MIRALAX) PACK PO SCH ×2 (09:08→19:14)
[2019-07-23] MEDS: IRON SUCROSE 200 MG/10 ML (VENOFER) VIAL IV SCH (09:08)
[2019-07-23] MEDS: SENNA W/DOCUSATE (SENOKOT S) TABLET PO SCH ×2 (09:09→19:14)
[2019-07-23] MEDS ORDERED: CATHETER FLUSH 10 ML SYR IV PRN (09:15)
--- NOTE | 2019-07-23 10:22 | Progress Note ---
Standard Progress Note Progress Notes/Assess & Plan Date Seen by a Provider: Jul 23, 2019 Time Seen by a Provider: 10:21 Progress/Assessment & Plan no complaints BLE without tendernss. Neg Denis's s/p L hip bipolar PT/OT Final Diagnosis doing well Vital Signs Date Time Temp Pulse Resp B/P (MAP) Pulse Ox O2 Delivery O2 Flow Rate FiO2 07/23/19 09:00 Room Air 07/23/19 06:15 37.0 90 20 136/73 (94) 97 Room Air 07/22/19 20:20 Room Air 07/22/19 18:00 37.3 102 18 115/67 (83) 97 Room Air I & O 07/23/19 07:00 Intake Total 1350 ml No cBalance 1350 ml no calf tenderness. Neg Denis's s/p L hip bipolar continue PT/OT DEANDRE WALLACE MD Jul 23, 2019 10:22
--- NOTE | 2019-07-23 11:00 | NUR ---
STATES PERCOCET IS CONTROLLING PAIN. PER DR. KERN - OKAY TO NOT CHECK BLOOD SUGARS. PATIENT IS WANTING TO GO HOME ON THURSDAY.
--- NOTE | 2019-07-23 11:30 | PM&R Progress Note ---
Subjective HPI/CC On Admission Date Seen by Provider: Jul 23, 2019 Time Seen by Provider: 11:00 Subjective/Events-last exam Had a BM today Ice packs provided for the leg pain and that helps Iron infusions tolerated, second one today Overall doing very well Chronic debility noted Dr Pacheco saw her today Reviewed the rest of labs and everything was good Checked meds and labs Conferred with RN Reviewed therapy notes Review of Systems General: Fatigue Musculoskeletal: leg pain Objective Exam Vital Signs Vital Signs Date Time Temp Pulse Resp B/P (MAP) Pulse Ox O2 Delivery O2 Flow Rate FiO2 07/23/19 09:00 Room Air 07/23/19 08:00 92 114/68 (83) 07/23/19 06:15 37.0 20 97 07/22/19 08:13 21 Capillary Refill : Less Than 3 SecondsLess Than 3 Seconds General Appearance: No Apparent Distress, WD/WN, Chronically ill HEENT: PERRL/EOMI, Normal ENT Inspection, Pharynx Normal Neck: Full Range of Motion, Normal Inspection, Non Tender, Supple, Carotid Bruit Respiratory: Chest Non Tender, Lungs Clear, Normal Breath Sounds, No Accessory Muscle Use, No Respiratory Distress Cardiovascular: Regular Rate, Rhythm, No Edema, No Gallop, No JVD, No Murmur, Normal Peripheral Pulses Gastrointestinal: Normal Bowel Sounds, No Organomegaly, No Pulsatile Mass, Non Tender, Soft Rectal: Deferred Back: Normal Inspection, No CVA Tenderness, No Vertebral Tenderness Extremity: Normal Capillary Refill, Normal Inspection, Normal Range of Motion (except left leg), Non Tender, No Calf Tenderness, No Pedal Edema Neurologic/Psychiatric: Alert, Oriented x3, No Motor/Sensory Deficits, milk house worker II- XII Norm as Tested, Depressed Affect Skin: Normal Color, Warm/Dry Lymphatic: No Adenopathy Results/Procedures Lab Patient resulted labs reviewed. FIM Transfers Therapy Code Descriptions/Definitions Functional [place] Measure: 0=Not Assessed/NA 4=Minimal Assistance 1=Total Assistance 5=Supervision or Setup 2=Maximal Assistance 6=Modified [place] 3=Moderate Assistance 7=Complete IndependenceSCALE: Activities may be completed with or without assistive devices. 6-Nngcoiugvi-dktzilf completes the activity by him/herself with no assistance from a helper. 5-Set-up or Clean-up Assistance-helper sets up or cleans up; patient completes activity. [place] assists only prior to or following the activity. 4-Supervision or Touching Assistance-helper provides verbal cues and/or touching/steadying and/or contact guard assistance as patient completes activity. Assistance may be provided throughout the activity or intermittently. 3-Partial/Moderate Assistance-helper does LESS THAN HALF the effort. [place] lifts, holds or supports trunk or limbs, but provides less than half the effort. 2-Substantial/Maximal Assistance-helper does MORE THAN HALF the effort. [place] lifts or holds trunk or limbs and provides more than half the effort. 3-Aekztlcqu-mrshpq does ALL the effort. Patient does none of the effort to complete the activity. Or, the assistance of 2 or more helpers is required for the patient to complete the activity. If activity was not attempted, code reason: 7-Patient Refused. 9-Not Applicable-not attempted and the patient did not perform the activity before the current illness, exacerbation or injury. 10-Not Attempted due to Environmental Limitations-(lack of equipment, weather restraints, etc.). 88-Not Attempted due to Medical Conditions or Safety Concerns. Roll Left to Right (QC): 6 Sit to Lying (QC): 5 Sit to Stand (QC): 5 Chair/Gik-iw-Gcyvn Xfer(QC): 5 Car Transfer (QC): 3 Gait Training Does the Patient Walk?: Yes Distance: 150' Walk 10 feet (QC): 5 Walk 50 ft with 2 Turns(QC): 5 Walk 150 ft (QC): 5 Walking 10ft/uneven surface-QC: 4 Gait Persons Needed: 1 Gait Assistive Device: FWW Wheelchair Training Does the Pt Use a Wheelchair?: No Wheel 50 ft with 2 turns (QC): 09 Wheel 150 ft (QC): 09 Type of Wheelchair: N/A Stair Training #of Steps: 1 1 Step (curb) (QC): 4 4 Steps (QC): 88 12 Steps (QC): 88 Balance Picking up an Object (QC): 88 ADL-Treatment Eating (QC): 6 Oral Hygiene (QC): 5 Shower/Bathe Self (QC): 4 (SBA in standing to cleanse buttocks/allyson area.) Upper Body Dressing (QC): 5 Lower Body Dressing (QC): 4 On/Off Footwear (QC): 5 Toileting Hygiene (QC): 4 Toilet Transfer (QC): 4 Assessment/Plan Assessment and Plan Assess & Plan/Chief Complaint Assessment: Left hip fracture s/p repair uncomplicated NHL hx HTN DM Acute blood loss anemia Post op constipation now resolved Plan: BM regimen to maintain IRF protocol Pain control Iron infusions (1) Left displaced femoral neck fracture (2) Non-Hodgkin lymphoma in remission (3) Constipation (4) Anemia due to blood loss, acute (5) Essential (primary) hypertension (6) Diabetes type 2, controlled Status: Acute (7) Fall Status: Acute DANIELLA KERN DO Jul 23, 2019 11:30
[2019-07-23] MEDS: CATHETER FLUSH 10 ML SYR IV SCH ×2 (13:29→20:13)
[2019-07-23 17:29] VITALS: BP 142/64
--- NOTE | 2019-07-23 18:00 | NUR ---
COMPLAIN NAUSEA AND MEDICATED WITH ZOFRAN WHICH HELPED. IV SITE RED AND DC'D. WILL RESTART TOMORROW FOR VENOFER INFUSION ON THURSDAY.
[2019-07-23] MEDS: SIMvastatin 40 MG (ZOCOR) TAB PO SCH (20:10)
[2019-07-24 05:52] VITALS: BP 143/80
[2019-07-24] MEDS: GLIMEPIRIDE 4 MG (AMARYL) TAB PO SCH (05:52)
[2019-07-24] MEDS: oxyCODONE/APAP 5/325MG (PERCOCET 5) TABLET PO PRN ×2 (05:52→20:09)
[2019-07-24 08:00] VITALS: BP 116/67
--- NOTE | 2019-07-24 08:00 | NUR ---
STATES SLEPT WELL. DENIES NAUSEA THIS AM. NO COMPLAINTS. STATES DAUGHTER WILL BE SPENDING NIGHTS WITH HER FOR A WHILE AFTER DISCHARGE.
[2019-07-24] MEDS: PIOGLITAZONE 30MG (ACTOS) TAB PO SCH (08:33)
[2019-07-24] MEDS: DOCUSATE SODIUM 100 MG (COLACE) CAP PO SCH ×2 (08:33→20:09)
[2019-07-24] MEDS: lisINopril 40 MG (PRINIVIL) TABLET PO SCH (08:33)
[2019-07-24] MEDS: ENOXAPARIN 40 MG/0.4 ML (LOVENOX) SYR SC SCH (08:35)
[2019-07-24] MEDS: SENNA W/DOCUSATE (SENOKOT S) TABLET PO SCH ×2 (08:35→19:14)
[2019-07-24] MEDS: POLYETHYLENE GLYCOL 17 GM (MIRALAX) PACK PO SCH ×2 (08:35→19:14)
--- NOTE | 2019-07-24 09:23 | Progress Note ---
Standard Progress Note Progress Notes/Assess & Plan Date Seen by a Provider: Jul 24, 2019 Time Seen by a Provider: 09:22 Progress/Assessment & Plan no complaints BLE without tendernss. Neg Denis's s/p L hip bipolar PT/OT Final Diagnosis doing well no calf tenderness. Neg Denis's s/p L hip bipolar continue PT/OT DEANDRE WALLACE MD Jul 24, 2019 09:23
--- NOTE | 2019-07-24 12:30 | NUR ---
DR. KERN HERE TO SEE PATIENT AND OKAY'D FOR SALINE LOCK TO BE LEFT OUT SINCE INFILTRATED AND VENOFER BE DC'D. KPAD ORDERED FOR REDDENED, SWOLLEN SITE LEFT FOREARM.
--- NOTE | 2019-07-24 15:17 | PM&R Progress Note ---
Subjective HPI/CC On Admission Date Seen by Provider: Jul 24, 2019 Time Seen by Provider: 12:15 Subjective/Events-last exam Had a BM today Gets OOB on her own now just neds help to lift her legs to get into the bed Iron infusions tolerated but IV infiltrated so will DC it Overall doing very well and her daughter can help her and stay the night until she is recovered Chronic debility noted but appears to getting close to baseline now Reviewed the rest of labs and everything was good Checked meds and labs Conferred with RN Reviewed therapy notes Review of Systems General: Fatigue Musculoskeletal: leg pain Objective Exam Vital Signs Vital Signs Date Time Temp Pulse Resp B/P (MAP) Pulse Ox O2 Delivery O2 Flow Rate FiO2 07/24/19 09:00 Room Air 07/24/19 05:52 36.6 92 18 143/80 (101) 98 07/22/19 08:13 21 Capillary Refill : Less Than 3 SecondsLess Than 3 Seconds General Appearance: No Apparent Distress, WD/WN, Chronically ill HEENT: PERRL/EOMI, Normal ENT Inspection, Pharynx Normal Neck: Full Range of Motion, Normal Inspection, Non Tender, Supple, Carotid Bruit Respiratory: Chest Non Tender, Lungs Clear, Normal Breath Sounds, No Accessory Muscle Use, No Respiratory Distress Cardiovascular: Regular Rate, Rhythm, No Edema, No Gallop, No JVD, No Murmur, Normal Peripheral Pulses Gastrointestinal: Normal Bowel Sounds, No Organomegaly, No Pulsatile Mass, Non Tender, Soft Rectal: Deferred Back: Normal Inspection, No CVA Tenderness, No Vertebral Tenderness Extremity: Normal Capillary Refill, Normal Inspection, Normal Range of Motion (except left leg), Non Tender, No Calf Tenderness, No Pedal Edema Neurologic/Psychiatric: Alert, Oriented x3, No Motor/Sensory Deficits, 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 FIM Transfers Therapy Code Descriptions/Definitions Functional [place] Measure: 0=Not Assessed/NA 4=Minimal Assistance 1=Total Assistance 5=Supervision or Setup 2=Maximal Assistance 6=Modified [place] 3=Moderate Assistance 7=Complete IndependenceSCALE: Activities may be completed with or without assistive devices. 5-Ziyqxtnpsi-chynrvc completes the activity by him/herself with no assistance from a helper. 5-Set-up or Clean-up Assistance-helper sets up or cleans up; patient completes activity. [place] assists only prior to or following the activity. 4-Supervision or Touching Assistance-helper provides verbal cues and/or touching/steadying and/or contact guard assistance as patient completes a ctivity. Assistance may be provided throughout the activity or intermittently. 3-Partial/Moderate Assistance-helper does LESS THAN HALF the effort. [place] lifts, holds or supports trunk or limbs, but provides less than half the effort. 2-Substantial/Maximal Assistance-helper does MORE THAN HALF the effort. [place] lifts or holds trunk or limbs and provides more than half the effort. 9-Aeegtzstq-ergqpq does ALL the effort. Patient does none of the effort to complete the activity. Or, the assistance of 2 or more helpers is required for the patient to complete the activity. If activity was not attempted, code reason: 7-Patient Refused. 9-Not Applicable-not attempted and the patient did not perform the activity before the current illness, exacerbation or injury. 10-Not Attempted due to Environmental Limitations-(lack of equipment, weather restraints, etc.). 88-Not Attempted due to Medical Conditions or Safety Concerns. Roll Left to Right (QC): 6 Sit to Lying (QC): 5 Sit to Stand (QC): 5 Chair/Npt-pp-Diiwi Xfer(QC): 5 Car Transfer (QC): 3 Gait Training Does the Patient Walk?: Yes Distance: 150' Walk 10 feet (QC): 5 Walk 50 ft with 2 Turns(QC): 5 Walk 150 ft (QC): 5 Walking 10ft/uneven surface-QC: 4 Gait Persons Needed: 1 Gait Assistive Device: FWW Wheelchair Training Does the Pt Use a Wheelchair?: No Wheel 50 ft with 2 turns (QC): 09 Wheel 150 ft (QC): 09 Type of Wheelchair: N/A Stair Training #of Steps: 1 1 Step (curb) (QC): 4 4 Steps (QC): 88 12 Steps (QC): 88 Balance Picking up an Object (QC): 88 ADL-Treatment Eating (QC): 6 Oral Hygiene (QC): 5 Shower/Bathe Self (QC): 4 (SBA in standing to cleanse buttocks/allyson area.) Upper Body Dressing (QC): 5 Lower Body Dressing (QC): 4 On/Off Footwear (QC): 5 Toileting Hygiene (QC): 4 Toilet Transfer (QC): 4 Assessment/Plan Assessment and Plan Assess & Plan/Chief Complaint Assessment: Left hip fracture s/p repair uncomplicated NHL hx HTN DM Acute blood loss anemia Post op constipation now resolved Plan: BM regimen to maintain IRF protocol Pain control Iron infusions DC Kpad to left arm where IV infiltrated (1) Left displaced femoral neck fracture (2) Non-Hodgkin lymphoma in remission (3) Constipation (4) Anemia due to blood loss, acute (5) Essential (primary) hypertension (6) Diabetes type 2, controlled Status: Acute (7) Fall Status: Acute DANIELLA KERN DO Jul 24, 2019 15:17
[2019-07-24 17:31] VITALS: BP 120/76
--- NOTE | 2019-07-24 18:00 | NUR ---
AMBULATED IN [place] X 2 WITH ASST. FAMILY VISITED. A GOOD DAY.
[2019-07-24] MEDS: SIMvastatin 40 MG (ZOCOR) TAB PO SCH (20:09)
[2019-07-25 05:01] VITALS: BP 137/83
[2019-07-25 05:01] LABS: BASOPHILS % (AUTO) 0 % (0-10); EOSINOPHILS # (AUTO) 0.4 10^3/uL (0.0-0.3); EOSINOPHILS % (AUTO) 5 % (0-10); HEMATOCRIT 30 % (35-52); HEMOGLOBIN 9.5 G/DL (11.5-16.0); LYMPHOCYTES % (AUTO) 24 % (12-44); MEAN CORPUSCULAR HEMOGLOBIN 30 PG (25-34); MEAN CORPUSCULAR HGB CONC 32 G/DL (32-36); MEAN CORPUSCULAR VOLUME 93 FL (80-99); MEAN PLATELET VOLUME 10.1 FL (7.4-10.4); MONOCYTES # (AUTO) 1.1 X 10^3 (0.0-1.0); MONOCYTES % (AUTO) 13 % (0-12); NEUTROPHILS # (AUTO) 4.7 X 10^3 (1.8-7.8); NEUTROPHILS % (AUTO) 58 % (42-75); PLATELET COUNT 363 10^3/uL (130-400); WHITE BLOOD COUNT 8.1 10^3/uL (4.3-11.0)
[2019-07-25 05:25] LABS: ALANINE AMINOTRANSFERASE 38 U/L (0-55); ALBUMIN 2.8 GM/DL (3.2-4.5); ALKALINE PHOSPHATASE 73 U/L (40-136); BILIRUBIN,TOTAL 0.5 MG/DL (0.1-1.0); BUN/CREATININE RATIO 14; CALCIUM 8.7 MG/DL (8.5-10.1); CARBON DIOXIDE 24 MMOL/L (21-32); CHLORIDE 102 MMOL/L (98-107); CREATININE SERUM 0.65 MG/DL (0.60-1.30); GFR ESTIMATED > 60; GLUCOSE 92 MG/DL (70-105); POTASSIUM 3.9 MMOL/L (3.6-5.0); SODIUM 137 MMOL/L (135-145); TOTAL PROTEIN 6.2 GM/DL (6.4-8.2)
[2019-07-25] MEDS: GLIMEPIRIDE 4 MG (AMARYL) TAB PO SCH (06:16)
[2019-07-25] MEDS: oxyCODONE/APAP 5/325MG (PERCOCET 5) TABLET PO PRN ×2 (07:24→20:09)
--- NOTE | 2019-07-25 08:34 | PM&R Progress Note ---
Subjective HPI/CC On Admission Date Seen by Provider: Jul 25, 2019 Time Seen by Provider: 08:45 Subjective/Events-last exam She is now stand by assist Hgb 9.5 Percocet taken twice daily Zofran given for nausea Getting in and out of bed better Checked meds and labs Conferred with RN Reviewed therapy notes Review of Systems General: Fatigue Musculoskeletal: leg pain Objective Exam Vital Signs Vital Signs Date Time Temp Pulse Resp B/P (MAP) Pulse Ox O2 Delivery O2 Flow Rate FiO2 07/25/19 18:53 Room Air 07/25/19 17:18 36.4 84 20 101/67 (78) 98 07/22/19 08:13 21 Capillary Refill : Less Than 3 SecondsLess Than 3 Seconds General Appearance: No Apparent Distress, WD/WN, Chronically ill HEENT: PERRL/EOMI, Normal ENT Inspection, Pharynx Normal Neck: Full Range of Motion, Normal Inspection, Non Tender, Supple, Carotid Bruit Respiratory: Chest Non Tender, Lungs Clear, Normal Breath Sounds, No Accessory Muscle Use, No Respiratory Distress Cardiovascular: Regular Rate, Rhythm, No Edema, No Gallop, No JVD, No Murmur, Normal Peripheral Pulses Gastrointestinal: Normal Bowel Sounds, No Organomegaly, No Pulsatile Mass, Non Tender, Soft Rectal: Deferred Back: Normal Inspection, No CVA Tenderness, No Vertebral Tenderness Extremity: Normal Capillary Refill, Normal Inspection, Normal Range of Motion (except left leg), Non Tender, No Calf Tenderness, No Pedal Edema Neurologic/Psychiatric: Alert, Oriented x3, No Motor/Sensory Deficits, scallop raker II- XII Norm as Tested, Depressed Affect Skin: Normal Color, Warm/Dry Lymphatic: No Adenopathy Results/Procedures Lab Laboratory Tests 07/25/19 04:20 Patient resulted labs reviewed. FIM Transfers Therapy Code Descriptions/Definitions Functional [place] Measure: 0=Not Assessed/NA 4=Minimal Assistance 1=Total Assistance 5=Supervision or Setup 2=Maximal Assistance 6=Modified [place] 3=Moderate Assistance 7=Complete IndependenceSCALE: Activities may be completed with or without assistive devices. 8-Urcztbefva-kgqdxfo completes the activity by him/herself with no assistance from a helper. 5-Set-up or Clean-up Assistance-helper sets up or cleans up; patient completes activity. [place] assists only prior to or following the activity. 4-Supervision or Touching Assistance-helper provides verbal cues and/or touching/steadying and/or contact guard assistance as patient completes activity. Assistance may be provided throughout the activity or intermittently. 3-Partial/Moderate Assistance-helper does LESS THAN HALF the effort. [place] lifts, holds or supports trunk or limbs, but provides less than half the effort. 2-Substantial/Maximal Assistance-helper does MORE THAN HALF the effort. [place] lifts or holds trunk or limbs and provides more than half the effort. 8-Bvwfbeiao-xwsiqt does ALL the effort. Patient does none of the effort to complete the activity. Or, the assistance of 2 or more helpers is required for the patient to complete the activity. If activity was not attempted, code reason: 7-Patient Refused. 9-Not Applicable-not attempted and the patient did not perform the activity before the current illness, exacerbation or injury. 10-Not Attempted due to Environmental Limitations-(lack of equipment, weather restraints, etc.). 88-Not Attempted due to Medical Conditions or Safety Concerns. Roll Left to Right (QC): 6 Sit to Lying (QC): 5 Sit to Stand (QC): 5 Chair/Akt-or-Wtits Xfer(QC): 5 Car Transfer (QC): 3 Gait Training Does the Patient Walk?: Yes Distance: 150' Walk 10 feet (QC): 5 Walk 50 ft with 2 Turns(QC): 5 Walk 150 ft (QC): 5 Walking 10ft/uneven surface-QC: 4 Gait Persons Needed: 1 Gait Assistive Device: FWW Wheelchair Training Does the Pt Use a Wheelchair?: No Wheel 50 ft with 2 turns (QC): 09 Wheel 150 ft (QC): 09 Type of Wheelchair: N/A Stair Training #of Steps: 1 1 Step (curb) (QC): 4 4 Steps (QC): 88 12 Steps (QC): 88 Balance Picking up an Object (QC): 88 ADL-Treatment Eating (QC): 6 Oral Hygiene (QC): 5 Shower/Bathe Self (QC): 4 (SBA in standing to cleanse buttocks/allyson area.) Upper Body Dressing (QC): 5 Lower Body Dressing (QC): 4 On/Off Footwear (QC): 5 Toileting Hygiene (QC): 4 Toilet Transfer (QC): 4 Assessment/Plan Assessment and Plan Assess & Plan/Chief Complaint Assessment: Left hip fracture s/p repair uncomplicated NHL hx HTN DM Acute blood loss anemia Post op constipation now resolved Plan: BM regimen to maintain IRF protocol Pain control Iron infusions DC Kpad to left arm where IV infiltrated (1) Left displaced femoral neck fracture (2) Non-Hodgkin lymphoma in remission (3) Constipation (4) Anemia due to blood loss, acute (5) Essential (primary) hypertension (6) Diabetes type 2, controlled Status: Acute (7) Fall Status: Acute DANIELLA KERN DO Jul 25, 2019 08:33
[2019-07-25] MEDS: ENOXAPARIN 40 MG/0.4 ML (LOVENOX) SYR SC SCH (08:58)
[2019-07-25] MEDS: PIOGLITAZONE 30MG (ACTOS) TAB PO SCH (09:21)
[2019-07-25] MEDS: lisINopril 40 MG (PRINIVIL) TABLET PO SCH (09:21)
[2019-07-25] MEDS: DOCUSATE SODIUM 100 MG (COLACE) CAP PO SCH ×2 (09:22→20:09)
[2019-07-25] MEDS: POLYETHYLENE GLYCOL 17 GM (MIRALAX) PACK PO SCH ×2 (09:23→20:10)
[2019-07-25] MEDS: SENNA W/DOCUSATE (SENOKOT S) TABLET PO SCH ×2 (09:23→20:09)
--- NOTE | 2019-07-25 10:54 | Occupational Ther Daily Note ---
OT Current Status-Daily Note Subjective Pt alert, sitting in recliner. Agrees to therapy. No c/o pain. Mental Status/Objective Patient Orientation: Person, Place, Time, Situation ADL-Treatment Pt required encouragement to complete shower today. Pt did agree to shower. Ambulated to bathroom and transferred into shower with SBA using AE. SBA for bathing for safety, slight LOB in standing while drying self. Pt then complete dressing after setup and SBA in stance for safety. Using sock aid to don socks and dressing stick to doff. Supervision during oral care while pt stood at sink. Pt then ambulated back to recliner after session with call light/phone in reach. All needs met in room. Therapy Code Descriptions/Definitions Functional [place] Measure: 0=Not Assessed/NA 4=Minimal Assistance 1=Total Assistance 5=Supervision or Setup 2=Maximal Assistance 6=Modified [place] 3=Moderate Assistance 7=Complete IndependenceSCALE: Activities may be completed with or without assistive devices. 0-Jhzhfzpnpt-mrnhlsp completes the activity by him/herself with no assistance fr om a helper. 5-Set-up or Clean-up Assistance-helper sets up or cleans up; patient completes activity. [place] assists only prior to or following the activity. 4-Supervision or Touching Assistance-helper provides verbal cues and/or touching/steadying and/or contact guard assistance as patient completes activity. Assistance may be provided throughout the activity or intermittently. 3-Partial/Moderate Assistance-helper does LESS THAN HALF the effort. [place] lifts, holds or supports trunk or limbs, but provides less than half the effort. 2-Substantial/Maximal Assistance-helper does MORE THAN HALF the effort. [place] lifts or holds trunk or limbs and provides more than half the effort. 3-Upirtfzej-cpmgns does ALL the effort. Patient does none of the effort to complete the activity. Or, the assistance of 2 or more helpers is required for the patient to complete the activity. If activity was not attempted, code reason: 7-Patient Refused. 9-Not Applicable-not attempted and the patient did not perform the activity before the current illness, exacerbation or injury. 10-Not Attempted due to Environmental Limitations-(lack of equipment, weather restraints, etc.). 88-Not Attempted due to Medical Conditions or Safety Concerns. Oral Hygiene (QC): 4 Shower/Bathe Self (QC): 4 Upper Body Dressing (QC): 5 Lower Body Dressing (QC): 4 On/Off Footwear: 5 OT Short Term Goals Short Term Goals Time Frame: Jul 27, 2019 Eatin Oral hygiene: 5 Toileting hygiene: 5 Shower/bathe self: 4 Upper body dressin Lower body dressin Putting on/taking off footwear: 4 OT Associate Director Of Nursing Goals Associate Director Of Nursing Goals Time Frame: Aug 03, 2019 Eating (QC): 6 Oral Hygiene (QC): 6 Toileting Hygiene (QC): 6 Shower/Bathe Self (QC): 5 Upper Body Dressing (QC): 6 Lower Body Dressing (QC): 6 On/Off Footwear (QC): 6 Additional Goals: 1-Demonstrate ADL Tasks, 2-Verbalize Understanding, 3-ImproveStrength/Tye 1=Demonstrate adherence to instructed precautions during ADL tasks. 2=Patient will verbalize/demonstrate understanding of assistive devices/modifications for ADL. 3=Patient will improve strength/tolerance for activity to enable patient to perform ADL's. OT Education/Plan Problem List/Assessment Assessment: Decreased Activ Tolerance, Impaired Funct Balance, Impaired Self- Care Skills Discharge Recommendations Plan/Recommendations: Continue POC Treatment Plan/Plan of Care Patient would benefit from OT for education, treatment and training to promote independence in ADL's, mobility, safety and/or upper extremity function for ADL's. Plan of Care: ADL Retraining, Functional Mobility, Group Exercise/Act as Ind, UE Funct Exercise/Act Treatment Duration: Aug 03, 2019 Frequency: At least 5 of 7 days/Wk (IRF) Estimated Hrs Per Day: 1.5 hours per day Agreement: Yes Rehab Potential: Good Time/GCodes Start Time: 09:45 Stop Time: 10:45 Total Time Billed (hr/min): 60 Billed Treatment Time 1 visit-ADL 4 (60 min) REJI LEYVA Jul 25, 2019 10:54
--- NOTE | 2019-07-25 11:04 | Physical Therapy Daily Note ---
PT Daily Note-Current Subjective Pt agreeable to PT session. Pain Numeric Pain Scale: 5-Moderate Pain Comment: states does have some pain up and moving, has already had a pain pill Appearance Upon arrival, pt sitting up in recliner awake and alert. At end of session, per pt request, sitting up in recliner with LE's elevated, call light, phone and bedside table within reach. Mental Status Patient Orientation: Person, Place, Time, Eyes Open, Situation Attachments: Other-See Comments (KPAD) Transfers SCALE: Activities may be completed with or without assistive devices. 5-Kmxnargplp-usjjvjd completes the activity by him/herself with no assistance from a helper. 5-Set-up or Clean-up Assistance-helper sets up or cleans up; patient completes activity. [place] assists only prior to or following the activity. 4-Supervision or Touching Assistance-helper provides verbal cues and/or touching/steadying and/or contact guard assistance as patient completes activity. Assistance may be provided throughout the activity or intermittently. 3-Partial/Moderate Assistance-helper does LESS THAN HALF the effort. [place] lifts, holds or supports trunk or limbs, but provides less than half the effort. 2-Substantial/Maximal Assistance-helper does MORE THAN HALF the effort. [place] lifts or holds trunk or limbs and provides more than half the effort. 4-Uylvaljcg-ywnjcj does ALL the effort. Patient does none of the effort to complete the activity. Or, the assistance of 2 or more helpers is required for the patient to complete the activity. If activity was not attempted, code reason: 7-Patient Refused. 9-Not Applicable-not attempted and the patient did not perform the activity before the current illness, exacerbation or injury. 10-Not Attempted due to Environmental Limitations-(lack of equipment, weather restraints, etc.). 88-Not Attempted due to Medical Conditions or Safety Concerns. Sit to Lying (QC): 4 Lying to Sitting/Side of Bed(Q: 3 (requiring A with LLE due to weakness and report of pain L hip flexors and adductors) Sit to Stand (QC): 4 min verb inst required for safety, technique and hand placement Weight Bearing Left Lower Extremity: Left Weight Bearing/Tolerated Gait Training Does the Patient Walk?: Yes Distance: 123 x2 Walk 10 feet (QC): 4 Walk 50 ft with 2 Turns(QC): 4 Gait Persons Needed: 1 Gait Assistive Device: FWW slow pace, step through but uneven step lengths, antalgic with decreased stance time LLE Stair Training Stair Training: Handrails/: 2 handrails #of Steps: 8 4 Steps (QC): 4 Stairs: Pattern: Step to (skilled inst for technique and sequencing for safety and ease) Exercises Supine Ex: Heel Slides, Hip abd/add (AROM to AAROM due to weakness, fatigue and pain L hip flexors and adductors) Supine Reps: 10 NuStep Minutes: 10 NuStep Workload: 5 (seat and arms 8, slow pace) Treatments education, transfers, gait, safety, functional mobility, activity tolerance, bed mobility, strength, balance Assessment increasing L hip flexor and adductor mm pain, tightness and pulling with activity and motion. PT Short Term Goals Short Term Goals Time Frame: Jul 26, 2019 Roll Left & Right: 4 Sit to lyin Lying to sitting on side of be: 4 Sit to stand: 4 Chair/qlu-hg-rqvwv transfer: 4 Toilet transfer: 4 Car transfer: 4 Walk 10 feet: 4 Walk 50 feet with two turns: 4 Walk 150 feet: 4 Walking 10ft on uneven surface: 4 1 step (curb): 4 PT Bran Mixer Goals Alf Goals PT Alf Goals Time Frame: Aug 10, 2019 Roll Left & Right (QC): 6 Sit to Lying (QC): 6 Lying-Sitting on Side/Bed(QC): 6 Sit to Stand (QC): 6 Chair/Wnq-nl-Oxijc Xfer(QC): 6 Toilet Transfer (QC): 6 Car Transfer (QC): 6 Does the Patient Walk: Yes Walk 10 feet (QC): 6 Walk 50ft with 2 Turns (QC): 6 Walk 150 ft (QC): 6 Walking 10ft on Uneven Surface: 6 1 Step (curb) (QC): 6 4 Steps (QC): 6 Does the Pt use WC or Scooter?: No PT Plan Treatment/Plan Treatment Plan: Continue Plan of Care Treatment Plan: Bed Mobility, Education, Functional Activity Tye, Functional Strength, Gait, Safety, Therapeutic Exercise, Transfers Treatment Duration: Jul 29, 2019 Frequency: At least 5 of 7 days/Wk (IRF) Estimated Hrs Per Day: 1.5 hours per day Patient and/or Family Agrees t: Yes Safety Risks/Education Patient Education: Gait Training, Transfer Techniques, Reviewed Precautions, Correct Positioning, Disease Process, Safety Issues Teaching Recipient: Patient Teaching Methods: Demonstration, Discussion Response to Teaching: Verbalize Understanding, Return Demonstration Time/GCodes Time In: 1100 Time Out: 1145 Total Billed Treatment Time: 45 Total Billed Treatment 1 visit, GT x17 min, EX x18 min min, FA x10 min ITALO BERGMAN PTA Jul 25, 2019 11:03
--- NOTE | 2019-07-25 14:33 | Therapy Group Daily Note ---
Therapy Daily Group Note Patient Education Topic Home Safety, Fall Prevention, Home Safety, Exercises, ADL Exercises LE Seated Exercise, Walking, UE Exercise Session Ratio (pt:therapist): 3:1 Goal of Session: Home Safety Strategies, UE/LE Strengthing, Use of Adaptive Equipment Goal Met for this Session: Yes Pt Benefit of Group: Contributions to Others, F/U Use of Strategies @Home, Increased Functional Safety, Increased Functional Strength, Improved Cognition, Recognition of Peers, Socialization Other/Notes Pt ambulated CGA to SBA with FWW to/from OT/PT group. Group consisted of intr oductions (name, place living, what to do on a cold day), socialization, seat UE/LE exercises and educational topics on home safety. Pt introduced self appropriately and actively listened to peers. Pt participated fully in group and contributed to conversation. Pt was able to lead group in one exercise then completed other exercises while each pt lead exercise. Pt verbalized un derstanding of educational topics by giving own experiences and answering questions accurately. After therapy, pt sitting up in recliner with call light/phone in reach. All needs met in room. Start Time: 13:00 Stop Time: 14:00 Total Billed Treatment Time: 60 Total Billed Treatment 1 visit, GRP x60 min ITALO BERGMAN PTA Jul 25, 2019 14:33
--- NOTE | 2019-07-25 14:44 | Speech Therapy Daily Note ---
Speech Daily Progress Note Subjective Date Seen by Provider: Jul 25, 2019 Time Seen by Provider: 11:45 Patient was alert and cooperative for all therapy tasks. Patient was sitting upright in her chair for the duration of therapy. Objective Patient completed safety awareness tasks pertaining to medication management and activities of daily living with 90% accuracy. Assessment Assessment Current Status: Good Progress Treatment Plan Continue Plan of Care Speech Short Term Goals Short Term Goals Short Term Goals 1. Patient will complete memory tasks with 90% or greater accuracy with minimal cues. 2. Patient will complete safety awareness tasks with 90% or greater accuracy with minimal cues. 3. Patient will complete problem-solving tasks with 90% or greater accuracy with minimal cues. Speech [facility] Goals Electrocardiograph Repairer Goals Patient will improve cognitive-communication necessary for safety and daily living tasks with minimal assist. Speech-Plan Patient/Family Goals Patient/Family Goals: Patient reports that she wishes to return home to previous level of independence and mobility. Treatment Plan Speech Therapy Treatment Plan: Continue Plan of Care Treatment Duration: Jul 29, 2019 Frequency: 4 times per week Estimated Hrs Per Day: .5 hour per day Rehab Potential: Good Barriers to Learning: Mild cognitive deficits Pt/Family Agrees to Plan: Yes Safety Risks/Education Teaching Recipient: Patient Teaching Methods: Demonstration, Discussion Response to Teaching: Verbalize Understanding Education Topics Provided: Patient verbalized understanding of the importance of reviewing safety precautions for when she is discharged from the ARU. Time Speech Therapy Time In: 11:45 Speech Therapy Time Out: 12:15 Total Billed Time: 30 Billed Treatment Time [address] Jul 25, 2019 14:44
[2019-07-25 17:18] VITALS: BP 101/67
[2019-07-25] MEDS: SIMvastatin 40 MG (ZOCOR) TAB PO SCH (20:09)
[2019-07-26] MEDS: oxyCODONE/APAP 5/325MG (PERCOCET 5) TABLET PO PRN ×2 (06:42→20:17)
[2019-07-26] MEDS: GLIMEPIRIDE 4 MG (AMARYL) TAB PO SCH (06:42)
[2019-07-26 06:49] VITALS: BP 135/79
[2019-07-26] MEDS: PIOGLITAZONE 30MG (ACTOS) TAB PO SCH (08:04)
[2019-07-26] MEDS: SENNA W/DOCUSATE (SENOKOT S) TABLET PO SCH ×2 (08:04→20:22)
[2019-07-26] MEDS: DOCUSATE SODIUM 100 MG (COLACE) CAP PO SCH ×2 (08:04→20:22)
[2019-07-26] MEDS: lisINopril 40 MG (PRINIVIL) TABLET PO SCH (08:04)
[2019-07-26] MEDS: ENOXAPARIN 40 MG/0.4 ML (LOVENOX) SYR SC SCH (08:05)
[2019-07-26] MEDS: POLYETHYLENE GLYCOL 17 GM (MIRALAX) PACK PO SCH ×2 (08:07→20:22)
--- NOTE | 2019-07-26 09:04 | Physical Therapy Daily Note ---
PT Daily Note-Current Subjective Pt sitting in recliner with feet reclined. Pt agrees to PT and reports feeling better today than yesterday. Pain Numeric Pain Scale: 4 Location: Left Location Body Site: Hip Pain Description: Ache Mental Status Patient Orientation: Person, Place, Time, Situation Transfers SCALE: Activities may be completed with or without assistive devices. 2-Ubppcfevao-hhbpffz completes the activity by him/herself with no assistance from a helper. 5-Set-up or Clean-up Assistance-helper sets up or cleans up; patient completes activity. [place] assists only prior to or following the activity. 4-Supervision or Touching Assistance-helper provides verbal cues and/or touching/steadying and/or contact guard assistance as patient completes activity. Assistance may be provided throughout the activity or intermittently. 3-Partial/Moderate Assistance-helper does LESS THAN HALF the effort. [place] lifts, holds or supports trunk or limbs, but provides less than half the effort. 2-Substantial/Maximal Assistance-helper does MORE THAN HALF the effort. [place] lifts or holds trunk or limbs and provides more than half the effort. 2-Rucpopnht-befrfo does ALL the effort. Patient does none of the effort to complete the activity. Or, the assistance of 2 or more helpers is required for the patient to complete the activity. If activity was not attempted, code reason: 7-Patient Refused. 9-Not Applicable-not attempted and the patient did not perform the activity before the current illness, exacerbation or injury. 10-Not Attempted due to Environmental Limitations-(lack of equipment, weather restraints, etc.). 88-Not Attempted due to Medical Conditions or Safety Concerns. Sit to Stand (QC): 5 Weight Bearing Left Lower Extremity: Left Weight Bearing/Tolerated Gait Training Does the Patient Walk?: Yes Distance: 150' x2 Walk 10 feet (QC): 5 Walk 50 ft with 2 Turns(QC): 5 Walk 150 ft (QC): 5 Gait Persons Needed: 1 Gait Assistive Device: FWW Pt walks with slow [place] and slight antalgic gait pattern. Wheelchair Training Does the Pt Use a Wheelchair?: No Stair Training Stair Training: Handrails/: 2 handrails #of Steps: 8 1 Step (curb) (QC): 5 4 Steps (QC): 5 Exercises Seated Therapy Exercises: Sit to stand (5 reps), Long arc quads, Hip flexion, Kicking activity Seated Reps: 15 NuStep Minutes: 10 NuStep Workload: 5 Treatments Pt transfers from recliner to standing. Pt ambulates in hallway using FWW. Pt uses NuStep for 10m at WL 5 then completes 2 sets of 4 Steps. Pt completes Seated EX before Pt returns to room at end of Rx to rest in recliner with feet elevated. Pt has all needs met, call light in hand. Assessment Current Status: Good Progress Pt is improving both with decrease in pain during Rx as well as mobility with tasks. PT Short Term Goals Short Term Goals Time Frame: Jul 26, 2019 Roll Left & Right: 4 Sit to lyin Lying to sitting on side of be: 4 Sit to stand: 4 Chair/yka-ju-ftycf transfer: 4 Toilet transfer: 4 Car transfer: 4 Walk 10 feet: 4 Walk 50 feet with two turns: 4 Walk 150 feet: 4 Walking 10ft on uneven surface: 4 1 step (curb): 4 PT Retirement Goals Retirement Goals PT Retirement Goals Time Frame: Aug 10, 2019 Roll Left & Right (QC): 6 Sit to Lying (QC): 6 Lying-Sitting on Side/Bed(QC): 6 Sit to Stand (QC): 6 Chair/Bwb-sy-Mrxaf Xfer(QC): 6 Toilet Transfer (QC): 6 Car Transfer (QC): 6 Does the Patient Walk: Yes Walk 10 feet (QC): 6 Walk 50ft with 2 Turns (QC): 6 Walk 150 ft (QC): 6 Walking 10ft on Uneven Surface: 6 1 Step (curb) (QC): 6 4 Steps (QC): 6 Does the Pt use WC or Scooter?: No PT Plan Problem List Problem List: Activity Tolerance, Functional Strength Treatment/Plan Treatment Plan: Continue Plan of Care Treatment Plan: Bed Mobility, Education, Functional Activity Tye, Functional Strength, Gait, Safety, Therapeutic Exercise, Transfers Treatment Duration: Jul 29, 2019 Frequency: At least 5 of 7 days/Wk (IRF) Estimated Hrs Per Day: 1.5 hours per day Patient and/or Family Agrees t: Yes Safety Risks/Education Patient Education: Gait Training, Transfer Techniques, Correct Positioning, Safety Issues Teaching Recipient: Patient Teaching Methods: Discussion Response to Teaching: Verbalize Understanding Time/GCodes Time In: 815 Time Out: 900 Total Billed Treatment Time: 45 Total Billed Treatment 1, GT (15m), EX (20m) & FA (10m) KISHOR LUDWIG MULE TENDER Jul 26, 2019 09:04
--- NOTE | 2019-07-26 10:00 | PM&R Progress Note ---
Subjective HPI/CC On Admission Date Seen by Provider: Jul 26, 2019 Time Seen by Provider: 09:00 Subjective/Events-last exam BM X2 last night. Percocet X2 last night. Incision looks good. Discharge is planned for Thursday. Checked meds and labs Conferred with RN Reviewed therapy notes Review of Systems Musculoskeletal: leg pain Objective Exam Vital Signs Vital Signs Date Time Temp Pulse Resp B/P (MAP) Pulse Ox O2 Delivery O2 Flow Rate FiO2 07/26/19 17:13 37.6 86 20 139/72 (94) 98 Room Air 07/22/19 08:13 21 Capillary Refill : Less Than 3 SecondsLess Than 3 Seconds General Appearance: No Apparent Distress, WD/WN, Chronically ill HEENT: PERRL/EOMI, Normal ENT Inspection, Pharynx Normal Neck: Full Range of Motion, Normal Inspection, Non Tender, Supple, Carotid Bruit Respiratory: Chest Non Tender, Lungs Clear, Normal Breath Sounds, No Accessory Muscle Use, No Respiratory Distress Cardiovascular: Regular Rate, Rhythm, No Edema, No Gallop, No JVD, No Murmur, Normal Peripheral Pulses Gastrointestinal: Normal Bowel Sounds, No Organomegaly, No Pulsatile Mass, Non Tender, Soft Rectal: Deferred Back: Normal Inspection, No CVA Tenderness, No Vertebral Tenderness Extremity: Normal Capillary Refill, Normal Inspection, Normal Range of Motion (except left leg), Non Tender, No Calf Tenderness, No Pedal Edema Neurologic/Psychiatric: Alert, Oriented x3, No Motor/Sensory Deficits, c d still operator II- XII Norm as Tested, Depressed Affect Skin: Normal Color, Warm/Dry Lymphatic: No Adenopathy Results/Procedures Lab Patient resulted labs reviewed. FIM Transfers Therapy Code Descriptions/Definitions Functional [place] Measure: 0=Not Assessed/NA 4=Minimal Assistance 1=Total Assistance 5=Supervision or Setup 2=Maximal Assistance 6=Modified [place] 3=Moderate Assistance 7=Complete IndependenceSCALE: Activities may be completed with or without assistive devices. 9-Dgzwlocztt-oqcjome completes the activity by him/herself with no assistance from a helper. 5-Set-up or Clean-up Assistance-helper sets up or cleans up; patient completes activity. [place] assists only prior to or following the activity. 4-Supervision or Touching Assistance-helper provides verbal cues and/or touching/steadying and/or contact guard assistance as patient completes activity. Assistance may be provided throughout the activity or intermittently. 3-Partial/Moderate Assistance-helper does LESS THAN HALF the effort. [place] lifts, holds or supports trunk or limbs, but provides less than half the effort. 2-Substantial/Maximal Assistance-helper does MORE THAN HALF the effort. [place] lifts or holds trunk or limbs and provides more than half the effort. 2-Jahuymnjg-urymcm does ALL the effort. Patient does none of the effort to complete the activity. Or, the assistance of 2 or more helpers is required for the patient to complete the activity. If activity was not attempted, code reason: 7-Patient Refused. 9-Not Applicable-not attempted and the patient did not perform the activity before the current illness, exacerbation or injury. 10-Not Attempted due to Environmental Limitations-(lack of equipment, weather restraints, etc.). 88-Not Attempted due to Medical Conditions or Safety Concerns. Roll Left to Right (QC): 6 Sit to Lying (QC): 4 Sit to Stand (QC): 4 Chair/Brd-gj-Lshep Xfer(QC): 5 Car Transfer (QC): 3 Gait Training Does the Patient Walk?: Yes Distance: 123 x2 Walk 10 feet (QC): 4 Walk 50 ft with 2 Turns(QC): 4 Walk 150 ft (QC): 5 Walking 10ft/uneven surface-QC: 4 Gait Persons Needed: 1 Gait Assistive Device: FWW Wheelchair Training Does the Pt Use a Wheelchair?: No Wheel 50 ft with 2 turns (QC): 09 Wheel 150 ft (QC): 09 Type of Wheelchair: N/A Stair Training Stair Training: Handrails/: 2 handrails #of Steps: 8 1 Step (curb) (QC): 4 4 Steps (QC): 4 12 Steps (QC): 88 Stairs: Pattern: Step to (skilled inst for technique and sequencing for safety and ease) Balance Picking up an Object (QC): 88 ADL-Treatment Eating (QC): 6 Oral Hygiene (QC): 4 Shower/Bathe Self (QC): 4 Upper Body Dressing (QC): 5 Lower Body Dressing (QC): 4 On/Off Footwear (QC): 5 Toileting Hygiene (QC): 4 Toilet Transfer (QC): 4 Assessment/Plan Assessment and Plan Assess & Plan/Chief Complaint Assessment: Left hip fracture s/p repair uncomplicated NHL hx HTN DM Acute blood loss anemia Post op constipation now resolved Plan: BM regimen to maintain IRF protocol Pain control Iron infusions DC Kpad to left arm where IV infiltrated DC Thursday (1) Left displaced femoral neck fracture (2) Non-Hodgkin lymphoma in remission (3) Constipation (4) Anemia due to blood loss, acute (5) Essential (primary) hypertension (6) Diabetes type 2, controlled Status: Acute (7) Fall Status: Acute DANIELLA KERN DO Jul 26, 2019 10:00
--- NOTE | 2019-07-26 10:28 | Speech Therapy Daily Note ---
Speech Daily Progress Note Subjective Date Seen by Provider: Jul 26, 2019 Time Seen by Provider: 09:00 Patient was upbeat, alert, and cooperative for all therapy tasks. Patient reported that she is hopeful in discharging from the ARU this week. Objective Patient completed memory tasks and safety awareness tasks pertaining to bill paying, grocery shopping, and medical assistance with 90% accuracy. Assessment Assessment Current Status: Good Progress Treatment Plan Continue Plan of Care Speech Short Term Goals Short Term Goals Short Term Goals 1. Patient will complete memory tasks with 90% or greater accuracy with minimal cues. 2. Patient will complete safety awareness tasks with 90% or greater accuracy with minimal cues. 3. Patient will complete problem-solving tasks with 90% or greater accuracy with minimal cues. Speech Senior Living Goals Card Fixer Goals Patient will improve cognitive-communication necessary for safety and daily living tasks with minimal assist. Speech-Plan Patient/Family Goals Patient/Family Goals: Patient reports that she wishes to return home to previous level of mobility and independence. Treatment Plan Speech Therapy Treatment Plan: Continue Plan of Care Treatment Duration: Jul 29, 2019 Frequency: 4 times per week Estimated Hrs Per Day: .5 hour per day Rehab Potential: Good Barriers to Learning: Mild cognitive deficits Pt/Family Agrees to Plan: Yes Safety Risks/Education Teaching Recipient: Patient Teaching Methods: Demonstration, Discussion Response to Teaching: Verbalize Understanding Education Topics Provided: Patient reported that she is aware of safery precautions for when she is discharged from the ARU. Time Speech Therapy Time In: 09:00 Speech Therapy Time Out: 09:30 Total Billed Time: 30 Billed Treatment Time 1[address] Jul 26, 2019 10:28
--- NOTE | 2019-07-26 11:50 | Occupational Ther Daily Note ---
OT Current Status-Daily Note Subjective No pain reported. Appearance Pt. up in chair. Agrees to treatment. Mental Status/Objective Patient Orientation: Person, Place ADL-Treatment Therapy Code Descriptions/Definitions Functional [place] Measure: 0=Not Assessed/NA 4=Minimal Assistance 1=Total Assistance 5=Supervision or Setup 2=Maximal Assistance 6=Modified [place] 3=Moderate Assistance 7=Complete IndependenceSCALE: Activities may be completed with or without assistive devices. 3-Ckxbbkwrqz-igvrpmk completes the activity by him/herself with no assistance from a helper. 5-Set-up or Clean-up Assistance-helper sets up or cleans up; patient completes activity. [place] assists only prior to or following the activity. 4-Supervision or Touching Assistance-helper provides verbal cues and/or touching/steadying and/or contact guard assistance as patient completes activity. Assistance may be provided throughout the activity or intermittently. 3-Partial/Moderate Assistance-helper does LESS THAN HALF the effort. [place] lifts, holds or supports trunk or limbs, but provides less than half the effort. 2-Substantial/Maximal Assistance-helper does MORE THAN HALF the effort. [place] lifts or holds trunk or limbs and provides more than half the effort. 6-Cviscedzk-pkzqfq does ALL the effort. Patient does none of the effort to complete the activity. Or, the assistance of 2 or more helpers is required for the patient to complete the activity. If activity was not attempted, code reason: 7-Patient Refused. 9-Not Applicable-not attempted and the patient did not perform the activity before the current illness, exacerbation or injury. 10-Not Attempted due to Environmental Limitations-(lack of equipment, weather restraints, etc.). 88-Not Attempted due to Medical Conditions or Safety Concerns. Oral Hygiene (QC): 4 (SBA in stance at sink to brush teeth.) Shower/Bathe Self (QC): 4 (Set up/SBA in chair. Pt. declines showering, but agrees to sponge bathe. Uses equipment with only minimal cues. SBA in stance to wash [place] area.) Upper Body Dressing (QC): 5 (Set up) Lower Body Dressing (QC): 4 (SBA with AE) On/Off Footwear: 4 (SBA with AE) Toileting Hygiene (QC): 4 (SBA to cleanse [place] area after BM.) Toilet Transfer (QC): 4 After ADLs, pt. ambulated with walker to therapy gym. Requires SBA. OT e ducated pt. on walker basket and placed one on walker for trial use. Educated her on safety with transporting items. Pt. tolerated 15 minutes at mod resistance on arm bike to increase overall strength. Pt. then donned 1 lb. wrist weights to complete fine motor task with therapy pegs. Completed alternating pattern, back and forth for further endurance training and overall strengthening. Pt. ambulated back to room with walker and SBA. All needs met up in chair. Education OT Patient Education: Correct positioning, Exercise program, Modified ADL techniques, Progress toward Goal/Update tx plan, Purpose of tx/functional activities, Reviewed precautions, Rehab process, Transfer techniques, Use of adapted equipment Teaching Recipient: Patient Teaching Methods: Demonstration, Discussion Response to Teaching: Verbalize Understanding, Return Demonstration OT Short Term Goals Short Term Goals Time Frame: Jul 27, 2019 Eatin Oral hygiene: 5 Toileting hygiene: 5 Shower/bathe self: 4 Upper body dressin Lower body dressin Putting on/taking off footwear: 4 OT Nursing Home Goals Nursing Home Goals Time Frame: Aug 03, 2019 Eating (QC): 6 Oral Hygiene (QC): 6 Toileting Hygiene (QC): 6 Shower/Bathe Self (QC): 5 Upper Body Dressing (QC): 6 Lower Body Dressing (QC): 6 On/Off Footwear (QC): 6 Additional Goals: 1-Demonstrate ADL Tasks, 2-Verbalize Understanding, 3- ImproveStrength/Tye 1=Demonstrate adherence to instructed precautions during ADL tasks. 2=Patient will verbalize/demonstrate understanding of assistive devices/modifications for ADL. 3=Patient will improve strength/tolerance for activity to enable patient to perform ADL's. OT Education/Plan Problem List/Assessment Assessment: Decreased Activ Tolerance, Impaired I ADL's, Impaired Self-Care Skills Discharge Recommendations Plan/Recommendations: Continue POC Therapy Discharge Recommendati: Home & Family Equpiment Recommendations-D/C: Hip Kit, Walker Bag or Basket Treatment Plan/Plan of Care Treatment,Training & Education: Yes Patient would benefit from OT for education, treatment and training to promote independence in ADL's, mobility, safety and/or upper extremity function for ADL's. Plan of Care: ADL Retraining, Functional Mobility, Group Exercise/Act as Ind, UE Funct Exercise/Act Treatment Duration: Aug 03, 2019 Frequency: At least 5 of 7 days/Wk (IRF) Estimated Hrs Per Day: 1.5 hours per day Agreement: Yes Rehab Potential: Good Time/GCodes Start Time: 09:45 Stop Time: 11:00 Total Time Billed (hr/min): 75 Billed Treatment Time 1, ADL x 45minutes, FA x 15minutes, Ex x 15minutes MYAH ASTORGA OT Jul 26, 2019 11:49
--- NOTE | 2019-07-26 12:04 | Progress Note ---
Standard Progress Note Progress Notes/Assess & Plan Date Seen by a Provider: Jul 26, 2019 Time Seen by a Provider: 12:03 Progress/Assessment & Plan no complaints BLE without tendernss. Neg Denis's s/p L hip bipolar PT/OT Final Diagnosis no complaints L hip incsion benign no calf tenderness s/p L hip bipolar PT/OT DEANDRE WALLACE MD Jul 26, 2019 12:04
--- NOTE | 2019-07-26 13:37 | Physical Therapy Daily Note ---
PT Daily Note-Current Subjective Pt sitting in recliner with feet elevated upon arrival. Pt agrees to PT. Pain Numeric Pain Scale: 4 Location: Left Location Body Site: Hip Pain Description: Ache, Tightness Mental Status Patient Orientation: Person, Place, Time, Situation Transfers SCALE: Activities may be completed with or without assistive devices. 6-Unogficsdj-mrfqhgo completes the activity by him/herself with no assistance from a helper. 5-Set-up or Clean-up Assistance-helper sets up or cleans up; patient completes activity. [place] assists only prior to or following the activity. 4-Supervision or Touching Assistance-helper provides verbal cues and/or moises zhang/steadying and/or contact guard assistance as patient completes activity. Assistance may be provided throughout the activity or intermittently. 3-Partial/Moderate Assistance-helper does LESS THAN HALF the effort. [place] lifts, holds or supports trunk or limbs, but provides less than half the effort. 2-Substantial/Maximal Assistance-helper does MORE THAN HALF the effort. [place] lifts or holds trunk or limbs and provides more than half the effort. 2-Skwcyoaip-tpsmid does ALL the effort. Patient does none of the effort to complete the activity. Or, the assistance of 2 or more helpers is required for the patient to complete the activity. If activity was not attempted, code reason: 7-Patient Refused. 9-Not Applicable-not attempted and the patient did not perform the activity before the current illness, exacerbation or injury. 10-Not Attempted due to Environmental Limitations-(lack of equipment, weather restraints, etc.). 88-Not Attempted due to Medical Conditions or Safety Concerns. Sit to Stand (QC): 5 Toilet Transfer (QC): 5 Weight Bearing Left Lower Extremity: Left Weight Bearing/Tolerated Gait Training Does the Patient Walk?: Yes Distance: 150' Walk 10 feet (QC): 5 Walk 50 ft with 2 Turns(QC): 5 Walk 150 ft (QC): 5 Gait Persons Needed: 1 Gait Assistive Device: FWW Wheelchair Training Does the Pt Use a Wheelchair?: No Exercises Seated Therapy Exercises: Ankle pumps, Long arc quads, Hip flexion, Kicking activity, Glut set Seated Reps: 15 Treatments Pt transfers from recliner to standing. Pt uses restroom before ambulating in hallway. Pt completes Seated Ex in chair then takes short RB. Pt ambulates back to room and rests in recliner with all needs met, call light in hand. Assessment Current Status: Good Progress Pt is gaining strength and mobility. PT Short Term Goals Short Term Goals Time Frame: Jul 26, 2019 Roll Left & Right: 4 Sit to lyin Lying to sitting on side of be: 4 Sit to stand: 4 Chair/cpj-al-mmkad transfer: 4 Toilet transfer: 4 Car transfer: 4 Walk 10 feet: 4 Walk 50 feet with two turns: 4 Walk 150 feet: 4 Walking 10ft on uneven surface: 4 1 step (curb): 4 PT Business Management Analyst Goals Retirement Goals PT Retirement Goals Time Frame: Aug 10, 2019 Roll Left & Right (QC): 6 Sit to Lying (QC): 6 Lying-Sitting on Side/Bed(QC): 6 Sit to Stand (QC): 6 Chair/Xag-jb-Ivtoo Xfer(QC): 6 Toilet Transfer (QC): 6 Car Transfer (QC): 6 Does the Patient Walk: Yes Walk 10 feet (QC): 6 Walk 50ft with 2 Turns (QC): 6 Walk 150 ft (QC): 6 Walking 10ft on Uneven Surface: 6 1 Step (curb) (QC): 6 4 Steps (QC): 6 Does the Pt use WC or Scooter?: No PT Plan Problem List Problem List: Activity Tolerance, Functional Strength Treatment/Plan Treatment Plan: Continue Plan of Care Treatment Plan: Bed Mobility, Education, Functional Activity Tye, Functional Strength, Gait, Safety, Therapeutic Exercise, Transfers Treatment Duration: Jul 29, 2019 Frequency: At least 5 of 7 days/Wk (IRF) Estimated Hrs Per Day: 1.5 hours per day Patient and/or Family Agrees t: Yes Safety Risks/Education Patient Education: Gait Training, Transfer Techniques, Correct Positioning, Safety Issues Teaching Recipient: Patient Teaching Methods: Discussion Response to Teaching: Verbalize Understanding Time/GCodes Time In: 1300 Time Out: 1330 Total Billed Treatment Time: 30 Total Billed Treatment 1, GT (15m) & EX (15m) KISHOR LUDWIG BED WORKER Jul 26, 2019 13:37
--- NOTE | 2019-07-26 14:49 | NUR ---
Call placed to Dr. Pacheco's office to schedule f/u appt. Left message for them to return call.
[2019-07-26 17:13] VITALS: BP 139/72
[2019-07-26] MEDS: SIMvastatin 40 MG (ZOCOR) TAB PO SCH (20:17)
[2019-07-27 05:03] VITALS: BP 124/73
[2019-07-27] MEDS: GLIMEPIRIDE 4 MG (AMARYL) TAB PO SCH (06:31)
[2019-07-27] MEDS: oxyCODONE/APAP 5/325MG (PERCOCET 5) TABLET PO PRN (06:31)
[2019-07-27] MEDS: lisINopril 40 MG (PRINIVIL) TABLET PO SCH (08:05)
[2019-07-27] MEDS: PIOGLITAZONE 30MG (ACTOS) TAB PO SCH (08:05)
[2019-07-27] MEDS: ENOXAPARIN 40 MG/0.4 ML (LOVENOX) SYR SC SCH (08:05)
[2019-07-27] MEDS: POLYETHYLENE GLYCOL 17 GM (MIRALAX) PACK PO SCH ×2 (08:06→20:06)
[2019-07-27] MEDS: SENNA W/DOCUSATE (SENOKOT S) TABLET PO SCH ×2 (08:07→20:06)
[2019-07-27] MEDS: DOCUSATE SODIUM 100 MG (COLACE) CAP PO SCH ×2 (08:07→20:06)
--- NOTE | 2019-07-27 09:05 | PM&R Progress Note ---
Subjective HPI/CC On Admission Date Seen by Provider: Jul 27, 2019 Time Seen by Provider: 09:15 Subjective/Events-last exam Patient really feels like she is doing very well Pain is improved every day Decreasing the use of Percocet now Incision looks good. Discharge is planned for Thursday. Checked meds and labs Conferred with RN Reviewed therapy notes Review of Systems Musculoskeletal: leg pain Objective Exam Vital Signs Vital Signs Date Time Temp Pulse Resp B/P (MAP) Pulse Ox O2 Delivery O2 Flow Rate FiO2 07/27/19 17:47 36.4 93 16 131/81 (98) 97 Room Air 07/22/19 08:13 21 Capillary Refill : Less Than 3 SecondsLess Than 3 Seconds General Appearance: No Apparent Distress, WD/WN, Chronically ill HEENT: PERRL/EOMI, Normal ENT Inspection, Pharynx Normal Neck: Full Range of Motion, Normal Inspection, Non Tender, Supple, Carotid Bruit Respiratory: Chest Non Tender, Lungs Clear, Normal Breath Sounds, No Accessory Muscle Use, No Respiratory Distress Cardiovascular: Regular Rate, Rhythm, No Edema, No Gallop, No JVD, No Murmur, Normal Peripheral Pulses Gastrointestinal: Normal Bowel Sounds, No Organomegaly, No Pulsatile Mass, Non Tender, Soft Rectal: Deferred Back: Normal Inspection, No CVA Tenderness, No Vertebral Tenderness Extremity: Normal Capillary Refill, Normal Inspection, Normal Range of Motion (except left leg), Non Tender, No Calf Tenderness, No Pedal Edema Neurologic/Psychiatric: Alert, Oriented x3, No Motor/Sensory Deficits, crime scene analyst II- XII Norm as Tested, Depressed Affect Skin: Normal Color, Warm/Dry Lymphatic: No Adenopathy Results/Procedures Lab Patient resulted labs reviewed. FIM Transfers Therapy Code Descriptions/Definitions Functional [place] Measure: 0=Not Assessed/NA 4=Minimal Assistance 1=Total Assistance 5=Supervision or Setup 2=Maximal Assistance 6=Modified [place] 3=Moderate Assistance 7=Complete IndependenceSCALE: Activities may be completed with or without assistive devices. 4-Rnplkfmvyj-rpjmbgo completes the activity by him/herself with no assistance from a helper. 5-Set-up or Clean-up Assistance-helper sets up or cleans up; patient completes activity. [place] assists only prior to or following the activity. 4-Supervision or Touching Assistance-helper provides verbal cues and/or touching/steadying and/or contact guard assistance as patient completes activi ty. Assistance may be provided throughout the activity or intermittently. 3-Partial/Moderate Assistance-helper does LESS THAN HALF the effort. [place] lifts, holds or supports trunk or limbs, but provides less than half the effort. 2-Substantial/Maximal Assistance-helper does MORE THAN HALF the effort. [place] lifts or holds trunk or limbs and provides more than half the effort. 5-Zlpvcftnv-olhsyg does ALL the effort. Patient does none of the effort to complete the activity. Or, the assistance of 2 or more helpers is required for the patient to complete the activity. If activity was not attempted, code reason: 7-Patient Refused. 9-Not Applicable-not attempted and the patient did not perform the activity before the current illness, exacerbation or injury. 10-Not Attempted due to Environmental Limitations-(lack of equipment, weather restraints, etc.). 88-Not Attempted due to Medical Conditions or Safety Concerns. Roll Left to Right (QC): 6 Sit to Lying (QC): 4 Sit to Stand (QC): 5 Chair/Gww-ak-Exyok Xfer(QC): 5 Car Transfer (QC): 3 Gait Training Does the Patient Walk?: Yes Distance: 150' Walk 10 feet (QC): 5 Walk 50 ft with 2 Turns(QC): 5 Walk 150 ft (QC): 5 Walking 10ft/uneven surface-QC: 4 Gait Persons Needed: 1 Gait Assistive Device: FWW Wheelchair Training Does the Pt Use a Wheelchair?: No Wheel 50 ft with 2 turns (QC): 09 Wheel 150 ft (QC): 09 Stair Training Stair Training: Handrails/: 2 handrails #of Steps: 8 1 Step (curb) (QC): 5 4 Steps (QC): 5 12 Steps (QC): 88 Stairs: Pattern: Step to (skilled inst for technique and sequencing for safety and ease) Balance Picking up an Object (QC): 88 ADL-Treatment Eating (QC): 6 Oral Hygiene (QC): 4 (SBA in stance at sink to brush teeth.) Shower/Bathe Self (QC): 4 (Set up/SBA in chair. Pt. declines showering, but agrees to sponge bathe. Uses equipment with only minimal cues. SBA in stance to wash [place] area.) Upper Body Dressing (QC): 5 (Set up) Lower Body Dressing (QC): 4 (SBA with AE) On/Off Footwear (QC): 4 (SBA with AE) Toileting Hygiene (QC): 4 (SBA to cleanse [place] area after BM.) Toilet Transfer (QC): 4 Assessment/Plan Assessment and Plan Assess & Plan/Chief Complaint Assessment: Left hip fracture s/p repair uncomplicated NHL hx HTN DM Acute blood loss anemia Post op constipation now resolved Plan: BM regimen to maintain IRF protocol Pain control Iron infusions DC Kpad to left arm where IV infiltrated DC Thursday (1) Left displaced femoral neck fracture (2) Non-Hodgkin lymphoma in remission (3) Constipation (4) Anemia due to blood loss, acute (5) Essential (primary) hypertension (6) Diabetes type 2, controlled Status: Acute (7) Fall Status: Acute DANIELLA KERN DO Jul 27, 2019 09:04
--- NOTE | 2019-07-27 10:19 | Physical Therapy Daily Note ---
PT Daily Note-Current Subjective Pt sitting in recliner visiting with grandson upon arrival. Pt agrees to PT. Pain Numeric Pain Scale: 3 Location: Left Location Body Site: Hip Pain Description: Ache, Tightness Mental Status Patient Orientation: Person, Place, Time, Situation Transfers SCALE: Activities may be completed with or without assistive devices. 8-Oeaweyajrm-ohjsdwl completes the activity by him/herself with no assistance from a helper. 5-Set-up or Clean-up Assistance-helper sets up or cleans up; patient completes activity. [place] assists only prior to or following the activity. 4-Supervision or Touching Assistance-helper provides verbal cues and/or touching/steadying and/or contact guard assistance as patient completes activity. Assistance may be provided throughout the activity or intermittently. 3-Partial/Moderate Assistance-helper does LESS THAN HALF the effort. [place] lifts, holds or supports trunk or limbs, but provides less than half the effort. 2-Substantial/Maximal Assistance-helper does MORE THAN HALF the effort. [place] lifts or holds trunk or limbs and provides more than half the effort. 1-Vwjgukqqn-ssztke does ALL the effort. Patient does none of the effort to complete the activity. Or, the assistance of 2 or more helpers is required for the patient to complete the activity. If activity was not attempted, code reason: 7-Patient Refused. 9-Not Applicable-not attempted and the patient did not perform the activity before the current illness, exacerbation or injury. 10-Not Attempted due to Environmental Limitations-(lack of equipment, weather restraints, etc.). 88-Not Attempted due to Medical Conditions or Safety Concerns. Sit to Stand (QC): 6 Toilet Transfer (QC): 6 Weight Bearing Left Lower Extremity: Left Weight Bearing/Tolerated Gait Training Does the Patient Walk?: Yes Distance: 150' x2 Walk 10 feet (QC): 6 Walk 50 ft with 2 Turns(QC): 6 Walk 150 ft (QC): 6 Gait Persons Needed: 1 Gait Assistive Device: FWW Pt walks with slow [place] and reports no pain. Wheelchair Training Does the Pt Use a Wheelchair?: No Stair Training Stair Training: Handrails/: 2 handrails #of Steps: 8 1 Step (curb) (QC): 5 4 Steps (QC): 5 Stairs: Pattern: Step to Exercises Seated Therapy Exercises: Ankle pumps, Long arc quads, Hip flexion, Kicking activity Seated Reps: 15 NuStep Minutes: 15 NuStep Workload: 5 Treatments Pt transfers from recliner to standing. Pt uses restroom then ambulates in h allway. Pt uses NuStep for 15m at WL 5. Pt completes Seated Ex before ambulating in hallway back to room. Pt resting in recliner with feet elevated and all needs met, call light in hand. Assessment Current Status: Good Progress Pt tolerates Rx well and wants to D/C Thursday (07/29/19). PT Short Term Goals Short Term Goals Time Frame: Jul 26, 2019 Roll Left & Right: 4 Sit to lyin Lying to sitting on side of be: 4 Sit to stand: 4 Chair/vma-cm-cbmor transfer: 4 Toilet transfer: 4 Car transfer: 4 Walk 10 feet: 4 Walk 50 feet with two turns: 4 Walk 150 feet: 4 Walking 10ft on uneven surface: 4 1 step (curb): 4 PT Dining Room Hostess Goals Dining Room Hostess Goals PT Dining Room Hostess Goals Time Frame: Aug 10, 2019 Roll Left & Right (QC): 6 Sit to Lying (QC): 6 Lying-Sitting on Side/Bed(QC): 6 Sit to Stand (QC): 6 Chair/Ybj-sg-Fbmnz Xfer(QC): 6 Toilet Transfer (QC): 6 Car Transfer (QC): 6 Does the Patient Walk: Yes Walk 10 feet (QC): 6 Walk 50ft with 2 Turns (QC): 6 Walk 150 ft (QC): 6 Walking 10ft on Uneven Surface: 6 1 Step (curb) (QC): 6 4 Steps (QC): 6 Does the Pt use WC or Scooter?: No PT Plan Problem List Problem List: Activity Tolerance Treatment/Plan Treatment Plan: Continue Plan of Care Treatment Plan: Bed Mobility, Education, Functional Activity Tye, Functional Strength, Gait, Safety, Therapeutic Exercise, Transfers Treatment Duration: Jul 29, 2019 Frequency: At least 5 of 7 days/Wk (IRF) Estimated Hrs Per Day: 1.5 hours per day Patient and/or Family Agrees t: Yes Safety Risks/Education Patient Education: Gait Training, Transfer Techniques, Steps, Correct Positioning, Safety Issues Teaching Recipient: Patient Teaching Methods: Discussion Response to Teaching: Verbalize Understanding Time/GCodes Time In: 915 Time Out: 1015 Total Billed Treatment Time: 60 Total Billed Treatment 1, GT (20m), FA (15m) & EX x2 (25m) KISHOR LUDWIG SEAMING MACHINE OPERATOR Jul 27, 2019 10:19
--- NOTE | 2019-07-27 11:21 | NUR ---
MAT PROTOCOL CANCELLED DUE TO PATIENT HAS NOT NEEDED ANY RESPIRATORY NEEDS IN SEVERAL DAYS Addendum: 07/27/19 at 1123 by SCOTTY DE PAZ RT HASN'T NEEDED ANYTHING FROM RESPIRATORY IN OVER 6 DAYS ATLEAST
--- NOTE | 2019-07-27 11:22 | Occupational Ther Daily Note ---
OT Current Status-Daily Note Subjective No pain reported. Appearance Pt. up in chair. Agrees to work with OT. Mental Status/Objective Patient Orientation: Person, Place, Time, Situation ADL-Treatment Therapy Code Descriptions/Definitions Functional [place] Measure: 0=Not Assessed/NA 4=Minimal Assistance 1=Total Assistance 5=Supervision or Setup 2=Maximal Assistance 6=Modified [place] 3=Moderate Assistance 7=Complete IndependenceSCALE: Activities may be completed with or without assistive devices. 3-Dasffxxqhc-bleyypi completes the activity by him/herself with no assistance from a helper. 5-Set-up or Clean-up Assistance-helper sets up or cleans up; patient completes activity. [place] assists only prior to or following the activity. 4-Supervision or Touching Assistance-helper provides verbal cues and/or touching/steadying and/or contact guard assistance as patient completes activity. Assistance may be provided throughout the activity or intermittently. 3-Partial/Moderate Assistance-helper does LESS THAN HALF the effort. [place] lifts, holds or supports trunk or limbs, but provides less than half the effort. 2-Substantial/Maximal Assistance-helper does MORE THAN HALF the effort. [place] lifts or holds trunk or limbs and provides more than half the effort. 5-Lmxrgluzq-fxvilf does ALL the effort. Patient does none of the effort to complete the activity. Or, the assistance of 2 or more helpers is required for the patient to complete the activity. If activity was not attempted, code reason: 7-Patient Refused. 9-Not Applicable-not attempted and the patient did not perform the activity before the current illness, exacerbation or injury. 10-Not Attempted due to Environmental Limitations-(lack of equipment, weather restraints, etc.). 88-Not Attempted due to Medical Conditions or Safety Concerns. Pt. declines showering, stating that she will do it tomorrow. Pt. in [facility] and reports that she is comfortable. Transferred sit-stand with walker with SBA. Ambulated to therapy gym and tolerated 15 minutes on arm bike at mod resistance for increased overall endurance and strength. Pt. then donned 1 lb. wrist weights and completed series of fine motor tasks, as well as reaching with alternating UE pattern for increased strength. OT and pt. talked in depth regarding what pt. will have to be able to do to discharge. Talked about kitchen safety and having things at arm level and easy access. Pt. states that her family will likely make sure her food is out for the day, or within easy reach. They will do her laundry, and will check on her frequently. OT talked about kitchen safety overall, in case family is not present and she wants to make a glass of water, etc.. Pt. verbalizes understanding. Pt. ambulated back to room and transferred to chair with SBA. All needs met. Education OT Patient Education: Correct positioning, Progress toward Goal/Update tx plan, Purpose of tx/functional activities, Reviewed precautions, Rehab process, Transfer techniques Teaching Recipient: Patient Teaching Methods: Demonstration, Discussion Response to Teaching: Verbalize Understanding, Return Demonstration OT Short Term Goals Short Term Goals Time Frame: Jul 27, 2019 Eatin Oral hygiene: 5 Toileting hygiene: 5 Shower/bathe self: 4 Upper body dressin Lower body dressin Putting on/taking off footwear: 4 OT Prison Goals Prison Goals Time Frame: Aug 03, 2019 Eating (QC): 6 Oral Hygiene (QC): 6 Toileting Hygiene (QC): 6 Shower/Bathe Self (QC): 5 Upper Body Dressing (QC): 6 Lower Body Dressing (QC): 6 On/Off Footwear (QC): 6 Additional Goals: 1-Demonstrate ADL Tasks, 2-Verbalize Understanding, 3- ImproveStrength/Tey 1=Demonstrate adherence to instructed precautions during ADL tasks. 2=Patient will verbalize/demonstrate understanding of assistive devices/modifications for ADL. 3=Patient will improve strength/tolerance for activity to enable patient to perform ADL's. OT Education/Plan Problem List/Assessment Assessment: Decreased Activ Tolerance, Impaired I ADL's, Impaired Self-Care Skills Discharge Recommendations Plan/Recommendations: Continue POC Therapy Discharge Recommendati: Home & Family Equpiment Recommendations-D/C: Hip Kit, Walker Bag or Basket Comment Pt. will need a walker and possibly a toilet riser. Treatment Plan/Plan of Care Treatment,Training & Education: Yes Patient would benefit from OT for education, treatment and training to promote independence in ADL's, mobility, safety and/or upper extremity function for ADL's. Plan of Care: ADL Retraining, Functional Mobility, Group Exercise/Act as Ind, UE Funct Exercise/Act Treatment Duration: Aug 03, 2019 Frequency: At least 5 of 7 days/Wk (IRF) Estimated Hrs Per Day: 1.5 hours per day Agreement: Yes Rehab Potential: Good Time/GCodes Start Time: 10:15 Stop Time: 11:15 Total Time Billed (hr/min): 60 Billed Treatment Time 1, Ex x 15minutes, FA x 45minutes MYAH ASTORGA OT Jul 27, 2019 11:22
--- NOTE | 2019-07-27 14:39 | Occupational Ther Daily Note ---
OT Current Status-Daily Note Subjective No pain reported. Appearance Pt. up in chair. Agrees to work with OT. Mental Status/Objective Patient Orientation: Person, Place, Time, Situation ADL-Treatment Therapy Code Descriptions/Definitions Functional [place] Measure: 0=Not Assessed/NA 4=Minimal Assistance 1=Total Assistance 5=Supervision or Setup 2=Maximal Assistance 6=Modified [place] 3=Moderate Assistance 7=Complete IndependenceSCALE: Activities may be completed with or without assistive devices. 6-Eyoejudmmp-tbwiall completes the activity by him/herself with no assistance from a helper. 5-Set-up or Clean-up Assistance-helper sets up or cleans up; patient completes activity. [place] assists only prior to or following the activity. 4-Supervision or Touching Assistance-helper provides verbal cues and/or touching/steadying and/or contact guard assistance as patient completes activity. Assistance may be provided throughout the activity or intermittently. 3-Partial/Moderate Assistance-helper does LESS THAN HALF the effort. [place] lifts, holds or supports trunk or limbs, but provides less than half the effort. 2-Substantial/Maximal Assistance-helper does MORE THAN HALF the effort. [place] lifts or holds trunk or limbs and provides more than half the effort. 8-Lieudqkox-ybtukt does ALL the effort. Patient does none of the effort to complete the activity. Or, the assistance of 2 or more helpers is required for the patient to complete the activity. If activity was not attempted, code reason: 7-Patient Refused. 9-Not Applicable-not attempted and the patient did not perform the activity before the current illness, exacerbation or injury. 10-Not Attempted due to Environmental Limitations-(lack of equipment, weather restraints, etc.). 88-Not Attempted due to Medical Conditions or Safety Concerns. Other Treatment Pt. agrees to work with OT. Pt. ambulated with Mod I with walker to therapy gym. Pt. practiced getting into/out of bed that is set up as her bed at home. OT puts therapy mat at same level of height, with no rails. Pt. is able to get into/out of multiple times with no difficulty. Ambulated to therapy kitchen and pt. practices getting item out of refridgerator with no difficulty. States that her family will set her fridge up for easy access at home. Ambulated back to r oom and pt. practiced getting into bed, adjusting her own pillows, placing pillow under left LE, and donning blankets with analyst market intelligence, with no difficulty. All needs met. Education OT Patient Education: Correct positioning, Modified ADL techniques, Progress toward Goal/Update tx plan, Purpose of tx/functional activities, Reviewed precautions, Rehab process, Transfer techniques Teaching Recipient: Patient Teaching Methods: Demonstration, Discussion Response to Teaching: Verbalize Understanding, Return Demonstration OT Short Term Goals Short Term Goals Time Frame: Jul 27, 2019 Eatin Oral hygiene: 5 Toileting hygiene: 5 Shower/bathe self: 4 Upper body dressin Lower body dressin Putting on/taking off footwear: 4 OT Correction Goals Correction Goals Time Frame: Aug 03, 2019 Eating (QC): 6 Oral Hygiene (QC): 6 Toileting Hygiene (QC): 6 Shower/Bathe Self (QC): 5 Upper Body Dressing (QC): 6 Lower Body Dressing (QC): 6 On/Off Footwear (QC): 6 Additional Goals: 1-Demonstrate ADL Tasks, 2-Verbalize Understanding, 3- ImproveStrength/Tye 1=Demonstrate adherence to instructed precautions during ADL tasks. 2=Patient will verbalize/demonstrate understanding of assistive devices/modifications for ADL. 3=Patient will improve strength/tolerance for activity to enable patient to perform ADL's. OT Education/Plan Problem List/Assessment Assessment: Decreased Activ Tolerance Discharge Recommendations Plan/Recommendations: Continue POC Treatment Plan/Plan of Care Treatment,Training & Education: Yes Patient would benefit from OT for education, treatment and training to promote independence in ADL's, mobility, safety and/or upper extremity function for ADL's. Plan of Care: ADL Retraining, Functional Mobility, Group Exercise/Act as Ind, UE Funct Exercise/Act Treatment Duration: Aug 03, 2019 Frequency: At least 5 of 7 days/Wk (IRF) Estimated Hrs Per Day: 1.5 hours per day Agreement: Yes Rehab Potential: Good Time/GCodes Start Time: 14:00 Stop Time: 14:30 Total Time Billed (hr/min): 30 Billed Treatment Time 1, ADL x 2 MYAH ASTORGA OT Jul 27, 2019 14:39
--- NOTE | 2019-07-27 14:56 | Physical Therapy Daily Note ---
PT Daily Note-Current Subjective Pt sitting in recliner upon arrival. Pt agrees to PT. Pain Numeric Pain Scale: 3 Location: Left Location Body Site: Hip Pain Description: Ache, Tightness Mental Status Patient Orientation: Person, Place, Time, Situation Transfers SCALE: Activities may be completed with or without assistive devices. 3-Oemeyiyxdq-ohbcfjo completes the activity by him/herself with no assistance from a helper. 5-Set-up or Clean-up Assistance-helper sets up or cleans up; patient completes activity. [place] assists only prior to or following the activity. 4-Supervision or Touching Assistance-helper provides verbal cues and/or touching/steadying and/or contact guard assistance as patient completes activity. Assistance may be provided throughout the activity or intermittently. 3-Partial/Moderate Assistance-helper does LESS THAN HALF the effort. [place] lifts, holds or supports trunk or limbs, but provides less than half the effort. 2-Substantial/Maximal Assistance-helper does MORE THAN HALF the effort. [place] lifts or holds trunk or limbs and provides more than half the effort. 0-Nynfwknev-eszfod does ALL the effort. Patient does none of the effort to complete the activity. Or, the assistance of 2 or more helpers is required for the patient to complete the activity. If activity was not attempted, code reason: 7-Patient Refused. 9-Not Applicable-not attempted and the patient did not perform the activity before the current illness, exacerbation or injury. 10-Not Attempted due to Environmental Limitations-(lack of equipment, weather restraints, etc.). 88-Not Attempted due to Medical Conditions or Safety Concerns. Sit to Stand (QC): 6 Weight Bearing Left Lower Extremity: Left Weight Bearing/Tolerated Gait Training Does the Patient Walk?: Yes Distance: 150' x2 Walk 10 feet (QC): 6 Walk 50 ft with 2 Turns(QC): 6 Walk 150 ft (QC): 6 Gait Persons Needed: 1 Gait Assistive Device: FWW Wheelchair Training Does the Pt Use a Wheelchair?: No Exercises Standing: Hip Abduction, Heel/toe raises, 3 way Ex=Flex, Abd, Ext, Marching, Mini squats, Weight shifts Standing Reps: 15 Treatments Pt transfers from recliner to standing and ambulates in hallway. Pt completes Standing Ex at //bars with one RB. Pt ambulates in hallway then returns to room to rest in recliner with all needs met, call light in hand. Assessment Current Status: Good Progress Pt tolerates Rx well. PT Short Term Goals Short Term Goals Time Frame: Jul 26, 2019 Roll Left & Right: 4 Sit to lyin Lying to sitting on side of be: 4 Sit to stand: 4 Chair/pia-gj-nvias transfer: 4 Toilet transfer: 4 Car transfer: 4 Walk 10 feet: 4 Walk 50 feet with two turns: 4 Walk 150 feet: 4 Walking 10ft on uneven surface: 4 1 step (curb): 4 PT [facility] Goals [facility] Goals PT Service Supervisor Goals Time Frame: Aug 10, 2019 Roll Left & Right (QC): 6 Sit to Lying (QC): 6 Lying-Sitting on Side/Bed(QC): 6 Sit to Stand (QC): 6 Chair/Xhk-jh-Rngcv Xfer(QC): 6 Toilet Transfer (QC): 6 Car Transfer (QC): 6 Does the Patient Walk: Yes Walk 10 feet (QC): 6 Walk 50ft with 2 Turns (QC): 6 Walk 150 ft (QC): 6 Walking 10ft on Uneven Surface: 6 1 Step (curb) (QC): 6 4 Steps (QC): 6 Does the Pt use WC or Scooter?: No PT Plan Problem List Problem List: Activity Tolerance Treatment/Plan Treatment Plan: Continue Plan of Care Treatment Plan: Bed Mobility, Education, Functional Activity Tye, Functional Strength, Gait, Safety, Therapeutic Exercise, Transfers Treatment Duration: Jul 29, 2019 Frequency: At least 5 of 7 days/Wk (IRF) Estimated Hrs Per Day: 1.5 hours per day Patient and/or Family Agrees t: Yes Safety Risks/Education Patient Education: Gait Training, Transfer Techniques, Correct Positioning, Safety Issues Teaching Recipient: Patient Teaching Methods: Discussion Response to Teaching: Verbalize Understanding Time/GCodes Time In: 1300 Time Out: 1330 Total Billed Treatment Time: 30 Total Billed Treatment 1, GT (15m) & EX (15m) KISHOR LUDWIG INTERCELL CONNECTOR PLACER Jul 27, 2019 14:56
--- NOTE | 2019-07-27 15:29 | NUR ---
CM/SS WEEKLY TEAM CONFERENCE Reviewed results of team meeting and patient in agreement to stay until discharge 07/29/19. Patient will return home as before, her children are with her daily and will resume all former activities, including daily visits and evening meal together. DME: FWW needed, will coordinate with patient preferred agency [facility] once orders received. Patient has agreed to a Hip Kit, this will be coordinated with the walker for family olive picker, patient understands that item is private pay. She also understands she will need to shop for the style of walker basket she wants through vendors like [email or web address] or online. HHC: Patient has refused home health services or outpatient therapy. Will need to coordinate appointment with Dr. Pacheco/Navneet Hammond for staple removal 08/01/19.
[2019-07-27 17:47] VITALS: BP 131/81
[2019-07-27] MEDS ORDERED: OXYC1TAB87 PO (19:44)
[2019-07-27] MEDS ORDERED: SENN-20 PO (19:44)
[2019-07-27] MEDS: SIMvastatin 40 MG (ZOCOR) TAB PO SCH (20:24)
--- NOTE | 2019-07-27 21:15 | Progress Note ---
Standard Progress Note Progress Notes/Assess & Plan Date Seen by a Provider: Jul 27, 2019 Time Seen by a Provider: 14:40 Progress/Assessment & Plan POD9 patient sitting up and fully dressed. She reports that she is doing very well and anxious to return home in two days on Thursday. She reports that she has a lot of family around to help care for her. She is reluctant to agree to home health and home PT. She is due for staple removal ideally this coming Thursday left hip incision remains well approximated with no warmth erythema or drainage or evidence of purulence. Bilateral calves are soft and nontender with negative Homans sign. Intact plantar flexion and dorsiflexion and EHL function. vital signs stable. Maximum temperature 36.8. assessment: doing well status post left hip bipolar prateek arthroplasty plan: discharge home in two days. She has a follow-up appointment scheduled on 08/08/19 at 1 PM. patient is aware that she needs alyson out this coming Thursday. If she does not agree to home health or home PT for staple removal we will likely advance her follow up appointment to this coming morning so I can remove alyson in clinic. CHA MUSTAFA Jul 27, 2019 21:15
[2019-07-28 05:33] VITALS: BP 146/71
[2019-07-28] MEDS: GLIMEPIRIDE 4 MG (AMARYL) TAB PO SCH (06:08)
[2019-07-28] MEDS: oxyCODONE/APAP 5/325MG (PERCOCET 5) TABLET PO PRN (06:09)
[2019-07-28] MEDS: PIOGLITAZONE 30MG (ACTOS) TAB PO SCH (08:09)
[2019-07-28] MEDS: SENNA W/DOCUSATE (SENOKOT S) TABLET PO SCH ×2 (08:09→20:00)
[2019-07-28] MEDS: DOCUSATE SODIUM 100 MG (COLACE) CAP PO SCH ×2 (08:09→20:00)
[2019-07-28] MEDS: ENOXAPARIN 40 MG/0.4 ML (LOVENOX) SYR SC SCH (08:10)
[2019-07-28] MEDS: POLYETHYLENE GLYCOL 17 GM (MIRALAX) PACK PO SCH ×2 (08:12→20:00)
--- NOTE | 2019-07-28 09:10 | Physical Therapy Daily Note ---
PT Daily Note-Current Subjective Pt sitting up in bed upon arrival. Pt agrees to PT for QC scoring for D/C tomorrow (07/29). Pain Numeric Pain Scale: 3 Location: Left Location Body Site: Hip Pain Description: Ache Mental Status Patient Orientation: Person, Place, Time, Situation Transfers SCALE: Activities may be completed with or without assistive devices. 2-Lqtaydatbp-eymjvyh completes the activity by him/herself with no assistance from a helper. 5-Set-up or Clean-up Assistance-helper sets up or cleans up; patient completes activity. Alvin assists only prior to or following the activity. 4-Supervision or Touching Assistance-helper provides verbal cues and/or touching/steadying and/or contact guard assistance as patient completes activity. Assistance may be provided throughout the activity or intermittently. 3-Partial/Moderate Assistance-helper does LESS THAN HALF the effort. Alvin lifts, holds or supports trunk or limbs, but provides less than half the effort. 2-Substantial/Maximal Assistance-helper does MORE THAN HALF the effort. Alvin lifts or holds trunk or limbs and provides more than half the effort. 2-Vaynarndj-pxsmay does ALL the effort. Patient does none of the effort to complete the activity. Or, the assistance of 2 or more helpers is required for the patient to complete the activity. If activity was not attempted, code reason: 7-Patient Refused. 9-Not Applicable-not attempted and the patient did not perform the activity before the current illness, exacerbation or injury. 10-Not Attempted due to Environmental Limitations-(lack of equipment, weather restraints, etc.). 88-Not Attempted due to Medical Conditions or Safety Concerns. Roll Left & Right (QC): 6 Sit to Lying (QC): 6 Lying to Sitting/Side of Bed(Q: 6 Sit to Stand (QC): 6 Chair/Jcz-st-Urgvh Xfer(QC): 6 Toilet Transfer (QC): 6 Car Transfer (QC): 6 Weight Bearing Left Lower Extremity: Left Weight Bearing/Tolerated Gait Training Does the Patient Walk?: Yes Distance: 150' x2 Walk 10 feet (QC): 6 Walk 50 ft with 2 Turns(QC): 6 Walk 150 ft (QC): 6 Walking 10ft/uneven surface-QC: 6 Gait Persons Needed: 1 Gait Assistive Device: FWW Pt walks with slow but steady cydney. Wheelchair Training Does the Pt Use a Wheelchair?: No Stair Training Stair Training: Handrails/: 2 handrails #of Steps: 8 1 Step (curb) (QC): 6 4 Steps (QC): 6 Balance Picking up an Object (QC): 88 Special Test Comments Pt did not perform due to Hip Precautions. Pt has a inspector outside steam distribution at home that will be used. Exercises NuStep Minutes: 15 NuStep Workload: 5 Treatments Pt completes QC scoring items listed above as well as uses NuStep for 15m at WL 5. Pt returns to room at end of Rx with all needs met and call light in hand. Assessment Current Status: Good Progress Pt tolerates Rx well. PT Short Term Goals Short Term Goals Time Frame: Jul 26, 2019 Roll Left & Right: 4 Sit to lyin Lying to sitting on side of be: 4 Sit to stand: 4 Chair/jvy-ra-xjmwx transfer: 4 Toilet transfer: 4 Car transfer: 4 Walk 10 feet: 4 Walk 50 feet with two turns: 4 Walk 150 feet: 4 Walking 10ft on uneven surface: 4 1 step (curb): 4 PT Feller Hand Goals Feller Hand Goals PT Feller Hand Goals Time Frame: Aug 10, 2019 Roll Left & Right (QC): 6 Sit to Lying (QC): 6 Lying-Sitting on Side/Bed(QC): 6 Sit to Stand (QC): 6 Chair/Cpm-kh-Hgcrk Xfer(QC): 6 Toilet Transfer (QC): 6 Car Transfer (QC): 6 Does the Patient Walk: Yes Walk 10 feet (QC): 6 Walk 50ft with 2 Turns (QC): 6 Walk 150 ft (QC): 6 Walking 10ft on Uneven Surface: 6 1 Step (curb) (QC): 6 4 Steps (QC): 6 Does the Pt use WC or Scooter?: No PT Plan Problem List Problem List: Activity Tolerance Treatment/Plan Treatment Plan: Continue Plan of Care Treatment Plan: Bed Mobility, Education, Functional Activity Tye, Functional Strength, Gait, Safety, Therapeutic Exercise, Transfers Treatment Duration: Jul 29, 2019 Frequency: At least 5 of 7 days/Wk (IRF) Estimated Hrs Per Day: 1.5 hours per day Patient and/or Family Agrees t: Yes Safety Risks/Education Patient Education: Gait Training, Transfer Techniques, Steps, Correct Positioning, Safety Issues Teaching Recipient: Patient Teaching Methods: Discussion Response to Teaching: Verbalize Understanding Time/GCodes Time In: 800 Time Out: 915 Total Billed Treatment Time: 75 Total Billed Treatment 1, GT x2 (25m), FA x2 (30m) & EX (20m) KISHOR LUDWIG ADMINISTRATIVE PERSONAL ASSISTANT Jul 28, 2019 09:10
[2019-07-28 10:22] VITALS: BP 122/68
[2019-07-28] MEDS: lisINopril 40 MG (PRINIVIL) TABLET PO SCH (10:22)
--- NOTE | 2019-07-28 10:23 | NUR ---
PATIENT MAY BE UP AD SOLITARIO IN ROOM PER THERAPY.
--- NOTE | 2019-07-28 10:28 | Occupational Ther Daily Note ---
OT Current Status-Daily Note Subjective No pain reported. Appearance Pt. up in chair. Agrees to shower. Mental Status/Objective Patient Orientation: Person, Place, Time, Situation ADL-Treatment Therapy Code Descriptions/Definitions Functional [place] Measure: 0=Not Assessed/NA 4=Minimal Assistance 1=Total Assistance 5=Supervision or Setup 2=Maximal Assistance 6=Modified [place] 3=Moderate Assistance 7=Complete IndependenceSCALE: Activities may be completed with or without assistive devices. 0-Insvarpzkm-njspvdk completes the activity by him/herself with no assistance from a helper. 5-Set-up or Clean-up Assistance-helper sets up or cleans up; patient completes activity. Valentines assists only prior to or following the activity. 4-Supervision or Touching Assistance-helper provides verbal cues and/or touching/steadying and/or contact guard assistance as patient completes activity. Assistance may be provided throughout the activity or intermittently. 3-Partial/Moderate Assistance-helper does LESS THAN HALF the effort. Valentines lifts, holds or supports trunk or limbs, but provides less than half the effort. 2-Substantial/Maximal Assistance-helper does MORE THAN HALF the effort. Valentines lifts or holds trunk or limbs and provides more than half the effort. 5-Ojqzxhgti-ofzzya does ALL the effort. Patient does none of the effort to complete the activity. Or, the assistance of 2 or more helpers is required for the patient to complete the activity. If activity was not attempted, code reason: 7-Patient Refused. 9-Not Applicable-not attempted and the patient did not perform the activity before the current illness, exacerbation or injury. 10-Not Attempted due to Environmental Limitations-(lack of equipment, weather restraints, etc.). 88-Not Attempted due to Medical Conditions or Safety Concerns. Eating (QC): 6 Oral Hygiene (QC): 6 Shower/Bathe Self (QC): 6 Upper Body Dressing (QC): 6 Lower Body Dressing (QC): 6 On/Off Footwear: 6 Toileting Hygiene (QC): 6 Toilet Transfer (QC): 6 Pt. agrees to shower. Pt. able to complete all ADLs with Mod I. Ambulated to therapy gym. Tolerated 15 minutes on arm bike x 15minutes at mod resistance to increase overall strength. Pt. then donned 1 lb. wrist weights and participated in overhead ball toss back and forth. Pt. Also completed UE exercises with 2 lb. dumbbell, x 5 exercises x 10 reps each for improved strength/endurance with functional tasks. Pt. ambulated back to room with walker with Mod I. Spoke with PT. Pt. safe with transfers with them and pt. is notified that she can be up ad rachel in room. Notified nursing. All needs met. Education OT Patient Education: Correct positioning, Exercise program, Modified ADL techniques, Progress toward Goal/Update tx plan, Purpose of tx/functional activities, Reviewed precautions, Rehab process, Transfer techniques Teaching Recipient: Patient Teaching Methods: Demonstration, Discussion Response to Teaching: Verbalize Understanding, Return Demonstration OT Short Term Goals Short Term Goals Time Frame: Jul 27, 2019 Eatin Oral hygiene: 5 Toileting hygiene: 5 Shower/bathe self: 4 Upper body dressin Lower body dressin Putting on/taking off footwear: 4 OT Slug Press Operator Goals Prison Goals Time Frame: Aug 03, 2019 Eating (QC): 6 Oral Hygiene (QC): 6 Toileting Hygiene (QC): 6 Shower/Bathe Self (QC): 5 Upper Body Dressing (QC): 6 Lower Body Dressing (QC): 6 On/Off Footwear (QC): 6 Additional Goals: 1-Demonstrate ADL Tasks, 2-Verbalize Understanding, 3- ImproveStrength/Tye 1=Demonstrate adherence to instructed precautions during ADL tasks. 2=Patient will verbalize/demonstrate understanding of assistive devices/modifications for ADL. 3=Patient will improve strength/tolerance for activity to enable patient to perform ADL's. OT Education/Plan Discharge Recommendations Plan/Recommendations: Continue POC Therapy Discharge Recommendati: Home & Family Equpiment Recommendations-D/C: Hip Kit, Walker Bag or Basket Treatment Plan/Plan of Care Treatment,Training & Education: Yes Patient would benefit from OT for education, treatment and training to promote independence in ADL's, mobility, safety and/or upper extremity function for ADL's. Plan of Care: ADL Retraining, Functional Mobility, Group Exercise/Act as Ind, UE Funct Exercise/Act Treatment Duration: Aug 03, 2019 Frequency: At least 5 of 7 days/Wk (IRF) Estimated Hrs Per Day: 1.5 hours per day Agreement: Yes Rehab Potential: Good Time/GCodes Start Time: 09:15 Stop Time: 10:30 Total Time Billed (hr/min): 75 Billed Treatment Time 1, ADL x 45minutes, Ex x 30minutes MYAH ASTORGA OT Jul 28, 2019 10:28
--- NOTE | 2019-07-28 13:05 | NUR ---
"RD ASSESSMENT PMHx: Hodgkin's lymphoma; HTN; T2DM; HLD PT INTERACTION: Pt was awake and pleasant during nutrition follow-up. Pt states she has been eating well since last assessment. Note avg PO intake of 67% x4d, per chart review. Pt states no issues with n/v/c/d since last assessment. Note last BM was 07/27, and pt currently on bowel regimen of colace BID; senna BID; and miralax BID, per chart review. ABNORMAL NUTRITION-RELATED LAB VALUES LOW: Pro 6.2; alb 2.8 HIGH: AST 45 Est. kcal needs: 4625-5244 kcal | 15-20 kcal/kg Est. Pro needs: 74-92 g Pro | 0.8-1.0 g Pro/kg PES STATEMENT: Inadequate oral intake (NI-2.1) related to loss of appetite as evidenced by pt interview | avg PO intake 67% x4d INTERVENTION: Continue with current diet order of CHO 60g/m 0snack diet. Pt may benefit from nutrition supplementation if PO intake declines. Will continue to follow and reassess as pt needs and status change. MONITOR/EVALUATE: PO Intake; Plan of Care; Hydration Status; Weight Status; Lab Values Ricardo Callahan, MS, RD, LD"
--- NOTE | 2019-07-28 13:07 | NUR ---
PATIENT TO F/U WITH [facility] ON 08/01/2019 AT 09:45 FOR STAPLE REMOVAL... AND KEEP F/U APPOINTMENT WITH DR. WALLACE ON 08/08/2019 AT 1300.
--- NOTE | 2019-07-28 14:10 | NUR ---
CM/SS DISCHARGE Final discussion with patient about her discharge arrangements. IMM2 presented, signed, charted. Patient understands the FWW and Hip Kit have been coordinated for her and her family can pick them up on their way to get her from the hospital. Patient indicates she will likely refuse the Kit stating her family will help her with socks and dressing. All known arrangements appear completed, no further interventions unless situation changes to warrant.
--- NOTE | 2019-07-28 14:22 | Speech Therapy Daily Note ---
Speech Daily Progress Note Subjective Date Seen by Provider: Jul 28, 2019 Time Seen by Provider: 10:45 Patient was alert, pleasant, and cooperative for all therapy tasks. Patient reported that she is excited to be going home tomorrow and looking forward to being around her family again. Patient say upright in her chair for the duration of treatment. Objective Patient was re-administered the SLUMS to assess progress. Patient scored a 27/30 on the SLUMS which falls within normal limits of cognitive function. Patient has made excellent progress from her initial evaluation score of 16/30 on the SLUMS. Assessment Assessment Current Status: Excellent Progress Treatment Plan Discontinue ST, Goals Met Speech Short Term Goals Short Term Goals Short Term Goals 1. Patient will complete memory tasks with 90% or greater accuracy with minimal cues. 2. Patient will complete safety awareness tasks with 90% or greater accuracy with minimal cues. 3. Patient will complete problem-solving tasks with 90% or greater accuracy with minimal cues. Speech Assisted Goals Computer Tape Librarian Goals Patient will improve cognitive-communication necessary for safety and daily living tasks with minimal assist. Speech-Plan Patient/Family Goals Patient/Family Goals: Patient reports that she wishes to return home to previous level of mobility and independence. Treatment Plan Speech Therapy Treatment Plan: Discontinue ST, Goals Met Treatment Duration: Jul 29, 2019 Frequency: 4 times per week Estimated Hrs Per Day: .5 hour per day Rehab Potential: Good Barriers to Learning: Moderate cognitive deficits;in which have resolved Pt/Family Agrees to Plan: Yes Safety Risks/Education Teaching Recipient: Patient Teaching Methods: Demonstration, Discussion Response to Teaching: Verbalize Understanding Education Topics Provided: Patient verbalized understanding of safety awareness needed to return home upon discharge. Time Speech Therapy Time In: 10:45 Speech Therapy Time Out: 11:15 Total Billed Time: 30 Billed Treatment Time 1, SLTS No QUALITY CODES EXPRESSION OF IDEAS/WANTS: 4 UNDERSTANDING VERBAL CONTENT: 4 BRIEF INTERVIEW OF MENTAL STATUS: YES REPETITION OF 3 WORDS: YES TEMPORAL ORIENTATION OF YEAR: CORRECT, MONTH: CORRECT, DAY: CORRECT RECALL OF SOCK: YES, COLOR: YES, BED: YES MEMORY/RECALL ABILITY OF CURRENT SEASON AND THAT SHE IS IN THE HOSPITAL FARSHAD MCKEON Jul 28, 2019 14:22
--- NOTE | 2019-07-28 15:04 | PM&R Progress Note ---
Subjective HPI/CC On Admission Date Seen by Provider: Jul 28, 2019 Time Seen by Provider: 08:45 Subjective/Events-last exam Pt feels pretty good about discharge tomorrow. Declines any outpatient therapy or home health. Bowels are moving pretty well. Received two iron infusions before IV went bad and her Hgb is stable at 9.5. Checked meds and labs Conferred with RN Reviewed therapy notes Review of Systems Musculoskeletal: leg pain Objective Exam Vital Signs Vital Signs Date Time Temp Pulse Resp B/P (MAP) Pulse Ox O2 Delivery O2 Flow Rate FiO2 07/28/19 15:34 36.8 98 16 127/73 (91) 97 Room Air 07/22/19 08:13 21 Capillary Refill : Less Than 3 SecondsLess Than 3 Seconds General Appearance: No Apparent Distress, WD/WN, Chronically ill HEENT: PERRL/EOMI, Normal ENT Inspection, Pharynx Normal Neck: Full Range of Motion, Normal Inspection, Non Tender, Supple, Carotid Bruit Respiratory: Chest Non Tender, Lungs Clear, Normal Breath Sounds, No Accessory Muscle Use, No Respiratory Distress Cardiovascular: Regular Rate, Rhythm, No Edema, No Gallop, No JVD, No Murmur, Normal Peripheral Pulses Gastrointestinal: Normal Bowel Sounds, No Organomegaly, No Pulsatile Mass, Non Tender, Soft Rectal: Deferred Back: Normal Inspection, No CVA Tenderness, No Vertebral Tenderness Extremity: Normal Capillary Refill, Normal Inspection, Normal Range of Motion (except left leg), Non Tender, No Calf Tenderness, No Pedal Edema Neurologic/Psychiatric: Alert, Oriented x3, No Motor/Sensory Deficits, assistant professor of 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 FIM Transfers Therapy Code Descriptions/Definitions Functional [place] Measure: 0=Not Assessed/NA 4=Minimal Assistance 1=Total Assistance 5=Supervision or Setup 2=Maximal Assistance 6=Modified [place] 3=Moderate Assistance 7=Complete IndependenceSCALE: Activities may be completed with or without assistive devices. 9-Lisuxctwxr-upqjjov completes the activity by him/herself with no assistance from a helper. 5-Set-up or Clean-up Assistance-helper sets up or cleans up; patient completes activity. [place] assists only prior to or following the activity. 4-Supervision or Touching Assistance-helper provides verbal cues and/or touching/steadying and/or contact guard assistance as patient completes activity. Assistance may be provided throughout the activity or intermittently. 3-Partial/Moderate Assistance-helper does LESS THAN HALF the effort. [place] lifts, holds or supports trunk or limbs, but provides less than half the effort. 2-Substantial/Maximal Assistance-helper does MORE THAN HALF the effort. [place] lifts or holds trunk or limbs and provides more than half the effort. 5-Sdyievwda-ecczfh does ALL the effort. Patient does none of the effort to complete the activity. Or, the assistance of 2 or more helpers is required for the patient to complete the activity. If activity was not attempted, code reason: 7-Patient Refused. 9-Not Applicable-not attempted and the patient did not perform the activity before the current illness, exacerbation or injury. 10-Not Attempted due to Environmental Limitations-(lack of equipment, weather restraints, etc.). 88-Not Attempted due to Medical Conditions or Safety Concerns. Roll Left to Right (QC): 6 Sit to Lying (QC): 6 Sit to Stand (QC): 6 Chair/Wuo-zo-Iotqd Xfer(QC): 6 Car Transfer (QC): 6 Gait Training Does the Patient Walk?: Yes Distance: 150' x2 Walk 10 feet (QC): 6 Walk 50 ft with 2 Turns(QC): 6 Walk 150 ft (QC): 6 Walking 10ft/uneven surface-QC: 6 Gait Persons Needed: 1 Gait Assistive Device: FWW Wheelchair Training Does the Pt Use a Wheelchair?: No Wheel 50 ft with 2 turns (QC): 09 Wheel 150 ft (QC): 09 Stair Training Stair Training: Handrails/: 2 handrails #of Steps: 8 1 Step (curb) (QC): 6 4 Steps (QC): 6 12 Steps (QC): 88 Stairs: Pattern: Step to Balance Picking up an Object (QC): 88 ADL-Treatment Eating (QC): 6 Oral Hygiene (QC): 6 Shower/Bathe Self (QC): 6 Upper Body Dressing (QC): 6 Lower Body Dressing (QC): 6 On/Off Footwear (QC): 6 Toileting Hygiene (QC): 6 Toilet Transfer (QC): 6 Assessment/Plan Assessment and Plan Assess & Plan/Chief Complaint Assessment: Left hip fracture s/p repair uncomplicated NHL hx HTN DM Acute blood loss anemia Post op constipation now resolved Plan: BM regimen to maintain IRF protocol Pain control Iron infusions DC Kpad to left arm where IV infiltrated is now resolved DC Thursday (1) Left displaced femoral neck fracture (2) Non-Hodgkin lymphoma in remission (3) Constipation (4) Anemia due to blood loss, acute (5) Essential (primary) hypertension (6) Diabetes type 2, controlled Status: Acute (7) Fall Status: Acute DANIELLA KERN DO Jul 28, 2019 15:04
[2019-07-28 15:34] VITALS: BP 127/73
[2019-07-28] MEDS: SIMvastatin 40 MG (ZOCOR) TAB PO SCH (20:00)
[2019-07-29 06:06] VITALS: BP 132/73
[2019-07-29] MEDS: GLIMEPIRIDE 4 MG (AMARYL) TAB PO SCH (06:14)
--- NOTE | 2019-07-29 08:54 | Discharge Summary ---
Diagnosis/Chief Complaint Date of Admission Jul 20, 2019 at 10:15 Date of Discharge Discharge Date: Jul 29, 2019 Discharge Diagnosis Assessment: Left hip fracture s/p repair uncomplicated NHL hx HTN DM Acute blood loss anemia Post op constipation now resolved Plan: BM regimen to maintain IRF protocol Pain control Iron infusions DC Kpad to left arm where IV infiltrated is now resolved DC Thursday (1) Left displaced femoral neck fracture (2) Non-Hodgkin lymphoma in remission (3) Constipation (4) Anemia due to blood loss, acute (5) Essential (primary) hypertension (6) Diabetes type 2, controlled Status: Acute (7) Fall Status: Acute Discharge Summary Discharge Physical Examination Allergies: Coded Allergies: No Known Drug Allergies (Verified , 07/17/19) Vitals & I&Os Vital Signs Date Time Temp Pulse Resp B/P (MAP) Pulse Ox O2 Delivery O2 Flow Rate FiO2 07/29/19 13:55 07/29/19 08:00 Room Air 07/29/19 06:06 36.8 89 18 98 General Appearance: Alert, Oriented X3, Cooperative Respiratory: Clear to Auscultation Cardiovascular: Regular Rate Neuro: Normal Gait, Normal Speech, Strength at 5/5 X4 Ext Psych/Mental Status: Mental Status NL, Mood NL Hospital Course Was the Problem List Reviewed?: Yes Hospital Course; Pt had an uneventful course for ten days while in inpatient rehab after suffering a fall and left hip fracture. She recovered very well participating in all therapies as required, bowels returned back to normal function after laxatives, labs were monitored. Pt was given iron infusions for the severe iron deficiency but once the IV infiltrated we discontinued those after two doses. She overall did very well, had no significant decompensation while in inpatient rehab and was discharged in improved condition with close fol low up with Dr. Pacheco and Dr. Jorge her PCP. Labs (last 24 hrs) Laboratory Tests 07/20/19 04:30: Iron Level <10L 07/21/19 05:04: White Blood Count 10.5, Red Blood Count 2.90L, Hemoglobin 8.8L, Hematocrit 27L, Mean Corpuscular Volume 93, Mean Corpuscular Hemoglobin 30, Mean Corpuscular Hemoglobin Concent 33, Red Cell Distribution Width 14.6H, Platelet Count 175, Mean Platelet Volume 11.5H, Neutrophils (%) (Auto) 77H, Lymphocytes (%) (Auto) 9L, Monocytes (%) (Auto) 12, Eosinophils (%) (Auto) 2, Basophils (%) (Auto) 0, Neutrophils # (Auto) 8.1H, Lymphocytes # (Auto) 1.0, Monocytes # (Auto) 1.3H, Eosinophils # (Auto) 0.2, Basophils # (Auto) 0.0, Sodium Level 134L, Potassium Level 3.9, Chloride Level 104, Carbon Dioxide Level 21, Anion Gap 9, Blood Urea Nitrogen 12, Creatinine 0.65, Estimat Glomerular Filtration Rate > 60, BUN/Creatinine Ratio 18, Glucose Level 107H, Calcium Level 8.3L, Corrected Calcium 9.3, Total Bilirubin 0.7, Aspartate Amino Transf (AST/SGOT) 20, Alanine Aminotransferase (ALT/SGPT) 15, Alkaline Phosphatase 56, Total Protein 5.9L, Albumin 2.8L 07/25/19 04:20: White Blood Count 8.1, Red Blood Count 3.18L, Hemoglobin 9.5L, Hematocrit 30L, Mean Corpuscular Volume 93, Mean Corpuscular Hemoglobin 30, Mean Corpuscular Hemoglobin Concent 32, Red Cell Distribution Width 15.0H, Platelet Count 363, Mean Platelet Volume 10.1, Neutrophils (%) (Auto) 58, Lymphocytes (%) (Auto) 24, Monocytes (%) (Auto) 13H, Eosinophils (%) (Auto) 5, Basophils (%) (Auto) 0, Neutrophils # (Auto) 4.7, Lymphocytes # (Auto) 2.0, Monocytes # (Auto) 1.1H, Eosinophils # (Auto) 0.4H, Basophils # (Auto) 0.0, Sodium Level 137, Potassium Level 3.9, Chloride Level 102, Carbon Dioxide Level 24, Anion Gap 11, Blood Urea Nitrogen 9, Creatinine 0.65, Estimat Glomerular Filtration Rate > 60, BUN/Creatinine Ratio 14, Glucose Level 92, Calcium Level 8.7, Corrected Calcium 9.7, Total Bilirubin 0.5, Aspartate Amino Transf (AST/SGOT) 45H, Alanine Amino transferase (ALT/SGPT) 38, Alkaline Phosphatase 73, Total Protein 6.2L, Albumin 2.8L Pending Labs Laboratory Tests 07/20/19 04:30: Iron Level <10 07/21/19 05:04: White Blood Count 10.5, Red Blood Count 2.90, Hemoglobin 8.8, Hematocrit 27, Mean Corpuscular Volume 93, Mean Corpuscular Hemoglobin 30, Mean Corpuscular Hemoglobin Concent 33, Red Cell Distribution Width 14.6, Platelet Count 175, Mean Platelet Volume 11.5, Neutrophils (%) (Auto) 77, Lymphocytes (%) (Auto) 9, Monocytes (%) (Auto) 12, Eosinophils (%) (Auto) 2, Basophils (%) (Auto) 0, Neutrophils # (Auto) 8.1, Lymphocytes # (Auto) 1.0, Monocytes # (Auto) 1.3, Eosinophils # (Auto) 0.2, Basophils # (Auto) 0.0, Sodium Level 134, Potassium Level 3.9, Chloride Level 104, Carbon Dioxide Level 21, Anion Gap 9, Blood Urea Nitrogen 12, Creatinine 0.65, Estimat Glomerular Filtration Rate > 60, BUN/Creatinine Ratio 18, Glucose Level 107, Calcium Level 8.3, Corrected Calcium 9.3, Total Bilirubin 0.7, Aspartate Amino Transf (AST/SGOT) 20, Alanine Aminotransferase (ALT/SGPT) 15, Alkaline Phosphatase 56, Total Protein 5.9, Albumin 2.8 07/25/19 04:20: White Blood Count 8.1, Red Blood Count 3.18, Hemoglobin 9.5, Hematocrit 30, Mean Corpuscular Volume 93, Mean Corpuscular Hemoglobin 30, Mean Corpuscular Hemoglobin Concent 32, Red Cell Distribution Width 15.0, Platelet Count 363, Mean Platelet Volume 10.1, Neutrophils (%) (Auto) 58, Lymphocytes (%) (Auto) 24, Monocytes (%) (Auto) 13, Eosinophils (%) (Auto) 5, Basophils (%) (Auto) 0, Neutrophils # (Auto) 4.7, Lymphocytes # (Auto) 2.0, Monocytes # (Auto) 1.1, Eosinophils # (Auto) 0.4, Basophils # (Auto) 0.0, Sodium Level 137, Potassium Level 3.9, Chloride Level 102, Carbon Dioxide Level 24, Anion Gap 11, Blood Urea Nitrogen 9, Creatinine 0.65, Estimat Glomerular Filtration Rate > 60, BUN/Creatinine Ratio 14, Glucose Level 92, Calcium Level 8.7, Corrected Calcium 9.7, Total Bilirubin 0.5, Aspartate Amino Transf (AST/SGOT) 45, Alanine Aminotransferase (ALT/SGPT) 38, Alkaline Phosphatase 73, Total Protein 6.2, Albumin 2.8 Discharge Home Medications: Active Scripts Active Senna-Time S Tablet (Sennosides/Docusate Sodium) 1 Each Tablet 1 Ea PO BID Percocet 5-325 mg Tablet (Oxycodone HCl/Acetaminophen) 1 Each Tablet 1 Tab PO Q2HR PRN Reported Benazepril HCl 40 Mg Tab 40 Mg PO DAILY Simvastatin 40 Mg Tablet 40 Mg PO HS Pioglitazone HCl 30 Mg Tablet 30 Mg PO DAILY Glimepiride 4 Mg Tablet 4 Mg PO DAILY Instructions to patient/family Please see electronic discharge instructions given to patient. Diagnosis/Problems Diagnosis/Problems (1) Left displaced femoral neck fracture (2) Non-Hodgkin lymphoma in remission (3) Constipation (4) Anemia due to blood loss, acute (5) Essential (primary) hypertension (6) Diabetes type 2, controlled Status: Acute (7) Fall Status: Acute Clinical Quality Measures DVT/VTE Risk/Contraindication: Risk Factor Score Per Nursin RFS Level Per Nursing on Admit: 4+=Very High DANIELLA KERN DO Jul 29, 2019 08:54
[2019-07-29] MEDS: DOCUSATE SODIUM 100 MG (COLACE) CAP PO SCH (09:11)
[2019-07-29] MEDS: SENNA W/DOCUSATE (SENOKOT S) TABLET PO SCH (09:11)
[2019-07-29] MEDS: POLYETHYLENE GLYCOL 17 GM (MIRALAX) PACK PO SCH (09:11)
[2019-07-29] MEDS: ENOXAPARIN 40 MG/0.4 ML (LOVENOX) SYR SC SCH (09:11)
[2019-07-29] MEDS: PIOGLITAZONE 30MG (ACTOS) TAB PO SCH (09:12)
[2019-07-29] MEDS: lisINopril 40 MG (PRINIVIL) TABLET PO SCH (09:12)
--- NOTE | 2019-07-29 09:31 | Therapy Team Discharge Summary ---
Therapy Discharge Summary Discharge Recommendations Date of Discharge Physical Therapy Patient came to rehab following a left MARITA. Upon evaluation patient performed bed mobility with min assist, sit <-> stand and transfers with CGA, car transfer min assist, ambulated 150' with a rolling walker with CGA (including 50' with at least 2 turns of 90 degrees and 10' over an uneven surface), and went up and down 1 step using a rolling walker with CGA. Patient has been performing bed mobility and transfer training, balance and endurance training, functional strengthening, stair training, gait training, and education. 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 Now, patient performs bed mobility and transfers with independence, independent with car transfer, ambulates 150' with a rolling walker with independence (including 50' with at least 2 turns of 90 degrees and 10' over an uneven surface), and can go up and down 8 steps using 2 handrails with independence. Patient is discharging from this facility today and will be discharged from PT at this time. Occupational Therapy Decreased Activ Tolerance PT Jail Goals Jail Goals PT Jail Goals Time Frame: Aug 10, 2019 Roll Left to Right (QC): 6 Sit to Lying (QC): 6 Lying-Sitting on Side/Bed(QC): 6 Sit to Stand (QC): 6 Chair/Xlz-nr-Wjkgk Xfer(QC): 6 Car Transfer (QC): 6 Does the Patient Walk: Yes Walk 10 feet (QC): 6 Walk 10ft-Uneven Surface(QC): 6 Walk 50ft with 2 Turns (QC): 6 Walk 150 ft (QC): 6 Does the Pt use WC or Scooter?: No 1 Step (curb) (QC): 6 4 Steps (QC): 6 OT Jail Goals Leadite Heater Goals Time Frame: Aug 03, 2019 Eating (QC): 6 Oral Hygiene (QC): 6 Shower/Bathe Self (QC): 5 Upper Body Dressing (QC): 6 Lower Body Dressing (QC): 6 On/Off Footwear (QC): 6 Toileting Hygiene (QC): 6 Toilet/Commode Transfer (QC): 6 Additional Goals: 1-Demonstrate ADL Tasks, 2-Verbalize Understanding, 3- ImproveStrength/Tye 1=Demonstrate adherence to instructed precautions during ADL tasks. 2=Patient will verbalize/demonstrate understanding of assistive devices/modifications for ADL. 3=Patient will improve strength/tolerance for activity to enable patient to perform ADL's. Speech Jail Goals Jail Goals Patient will improve cognitive-communication necessary for safety and daily living tasks with minimal assist. JACKSON MILLER PT Jul 29, 2019 09:31
--- NOTE | 2019-07-29 09:33 | Therapy Team Discharge Summary ---
Therapy Discharge Summary Discharge Recommendations Date of Discharge Occupational Therapy Decreased Activ Tolerance Speech-Language Pathology Patient was admitted to the ARU s/p hip injury. Patient received skilled ST services due to initial evaluation score on the SLUMS falling within the mod erate range of cognitive function. Patient has made excellent progress in the areas of memory, problem-solving, and safety awareness. Patient will be discharged from the ARU today and is discharged from ST services. PT Food Counter Worker Goals Food Counter Worker Goals PT [facility] Goals Time Frame: Aug 10, 2019 Roll Left to Right (QC): 6 Sit to Lying (QC): 6 Lying-Sitting on Side/Bed(QC): 6 Sit to Stand (QC): 6 Chair/Gje-vt-Zivqf Xfer(QC): 6 Car Transfer (QC): 6 Does the Patient Walk: Yes Walk 10 feet (QC): 6 Walk 10ft-Uneven Surface(QC): 6 Walk 50ft with 2 Turns (QC): 6 Walk 150 ft (QC): 6 Does the Pt use WC or Scooter?: No 1 Step (curb) (QC): 6 4 Steps (QC): 6 OT Food Counter Worker Goals Food Counter Worker Goals Time Frame: Aug 03, 2019 Eating (QC): 6 Oral Hygiene (QC): 6 Shower/Bathe Self (QC): 5 Upper Body Dressing (QC): 6 Lower Body Dressing (QC): 6 On/Off Footwear (QC): 6 Toileting Hygiene (QC): 6 Toilet/Commode Transfer (QC): 6 Additional Goals: 1-Demonstrate ADL Tasks, 2-Verbalize Understanding, 3- ImproveStrength/Tye 1=Demonstrate adherence to instructed precautions during ADL tasks. 2=Patient will verbalize/demonstrate understanding of assistive devices/modifications for ADL. 3=Patient will improve strength/tolerance for activity to enable patient to perform ADL's. Speech Food Counter Worker Goals Food Counter Worker Goals Patient will improve cognitive-communication necessary for safety and daily living tasks with minimal assist. MET FARSHAD MCKEON Jul 29, 2019 09:33
--- NOTE | 2019-08-01 14:21 | Therapy Team Discharge Summary ---
Therapy Discharge Summary Discharge Recommendations Date of Discharge Jul 29, 2019 at 13:55 Occupational Therapy Pt. was seen by occupational therapy to increase overall strength and indepen dence with daily skills. Pt. met all goals, and was able to complete ADLs with modified independence. OT recommended walker, walker basket, and hip kit. PT Custodial Goals Bearing Maker Goals PT Custodial Goals Time Frame: Aug 10, 2019 Roll Left to Right (QC): 6 Sit to Lying (QC): 6 Lying-Sitting on Side/Bed(QC): 6 Sit to Stand (QC): 6 Chair/Dql-nz-Tlipu Xfer(QC): 6 Car Transfer (QC): 6 Does the Patient Walk: Yes Walk 10 feet (QC): 6 Walk 10ft-Uneven Surface(QC): 6 Walk 50ft with 2 Turns (QC): 6 Walk 150 ft (QC): 6 Does the Pt use WC or Scooter?: No 1 Step (curb) (QC): 6 4 Steps (QC): 6 OT Custodial Goals Bearing Maker Goals Time Frame: Aug 03, 2019 Eating (QC): 6 (met) Oral Hygiene (QC): 6 (met) Shower/Bathe Self (QC): 5 (met) Upper Body Dressing (QC): 6 (met) Lower Body Dressing (QC): 6 (met) On/Off Footwear (QC): 6 (met) Toileting Hygiene (QC): 6 (met) Toilet/Commode Transfer (QC): 6 (met) Additional Goals: 1-Demonstrate ADL Tasks, 2-Verbalize Understanding, 3- ImproveStrength/Tye 1=Demonstrate adherence to instructed precautions during ADL tasks. 2=Patient will verbalize/demonstrate understanding of assistive devices/modifications for ADL. 3=Patient will improve strength/tolerance for activity to enable patient to perform ADL's. Speech Bearing Maker Goals Custodial Goals Patient will improve cognitive-communication necessary for safety and daily living tasks with minimal assist. MET MYAH ASTORGA OT Aug 01, 2019 14:21
== END 2019-07-29 13:55 | disposition home or self-care (01) | DRG 560 ==
PROVIDERS: ADMIT Internal Medicine; ATTEND Internal Medicine
DX: S72.002D Fracture of unspecified part of neck of left femur, subsequent encounter for closed fracture with routine healing (principal); R29.6 Repeated falls; D62 Acute posthemorrhagic anemia; K59.09 Other constipation; E11.9 Type 2 diabetes mellitus without complications; E78.5 Hyperlipidemia, unspecified; I10 Essential (primary) hypertension; Z85.72 Personal history of non-Hodgkin lymphomas; Z79.84 Long term (current) use of oral hypoglycemic drugs; Z90.49 Acquired absence of other specified parts of digestive tract; W19.XXXD Unspecified fall, subsequent encounter
CPT/HCPCS: 36415; 80053; 83540; 85025; 94760

== ENCOUNTER → 2020-01-10 | Outpatient (CLI) | payer MEDICARE ==
[~2020-01-10] MED LIST changes: -GLIM4TAB3 PO; +GLIM4TAB5 PO; +OXYC1TAB87 PO; +SENN-20 PO
--- NOTE | 2020-01-10 14:26 | Diagnostic Imaging Report ---
INDICATION: 79-year-old female, postmenopausal. Screening for osteoporosis. COMPARISON: None. FINDINGS: AP Spine L1-L4: [BMD (g/cm2): 0.962] [T-Score: -2.0] [Z-Score: -0.9] [BMD Previous: na] [BMD % Change: na] LT Hip Neck: [BMD (g/cm2): na] [T-Score: nan] [Z-Score: na] LT Hip Total: [BMD (g/cm2):na] [T-Score:na] [Z-Score: na] [BMD Previous: na] [BMD % Change: na] RT Hip Neck: [BMD (g/cm2):0.641] [T-Score:-2.9] [Z-Score:-1.3] RT Hip Total: [BMD (g/cm2):0.649] [T-score:-2.8] [Z-Score:-1.5] [BMD Previous:na] [BMD % Change:na] *Indicates significant change from prior examination based on 95% confidence level. World Health Organization criteria for BMD interpretation classify patients as Normal (T-score at or above -1.0), Osteopenic (T-score between -1.0 and -2.5) or Osteoporotic (T-score at or below -2.5). LIMITATIONS AND MODIFICATION: None. IMPRESSION: 1. Osteoporosis. 2. Baseline examination. 3. See below National Osteoporosis Foundation guidelines on when to potentially initiate pharmacologic therapy. Based on the National Osteoporosis Foundation Guidelines, pharmacologic treatment should be initiated in any of the following, unless clinical conditions suggest otherwise: * Any patient with prior fragility fracture of the hip or vertebrae. A spine fracture indicates 5X risk for subsequent spine fracture and 2X risk for subsequent hip fracture. * Osteoporosis (T-score <-2.5). * Postmenopausal women and men age 50 and older with low bone mass/osteopenia (T-score between -1.0 and -2.5) by DXA and 10-year major osteoporotic fracture greater than 20% or a 10-year probability of hip fracture greater than 3%. These fracture risks are supplied above in the FRAX score, if applicable. * Clinician judgement and/or patient preferences may indicate treatment for people with 10-year fracture probabilities above or below these levels. Dictated by: Dictated on workstation # [id number]
== END ==
LOC: RAD 12:15
PROVIDERS: ATTEND Internal Medicine
DX: Z13.820 Encounter for screening for osteoporosis (principal); M81.0 Age-related osteoporosis without current pathological fracture; S72.002A Fracture of unspecified part of neck of left femur, initial encounter for closed fracture; Z78.0 Asymptomatic menopausal state
CPT/HCPCS: 77080